=== PATIENT | male | born 1945 | race Caucasian/White ===

== ENCOUNTER 2016-06-18 08:19 | Observation (INO) | payer MEDICARE, OTHER ==
[~2016-06-18] VITALS: Ht 182.9 cm; Wt 95.0 kg
[~2016-06-18 08:19] MED LIST: DIPH25; LORTA5 PO; PRED20 PO; ZYRT10TA12 PO
[2016-06-18] MEDS ORDERED: SODIUM CHLORID 0.9% 500 ML IV PRN (08:45)
[2016-06-18] MEDS ORDERED: INSULIN HUMAN REGULAR 1,000 UNITS/10 ML VIAL SQ PRN (08:45)
[2016-06-18] MEDS ORDERED: POVIDONE IODINE 5% (ANTISEPSIS KIT) 4 APPLICATIONS EACH NARE PRN (08:45)
[2016-06-18] MEDS ORDERED: ceFAZolin 2 GM PREMIX 50 ML IV SCH (08:45)
[2016-06-18] MEDS ORDERED: METOPROLOL TARTRATE 25 MG TAB PO PRN (08:45)
[2016-06-18] MEDS ORDERED: CHLORHEXIDINE GLUCONATE 2 % 1 PACK (2 CLOTHS) TOPICAL PRN (08:45)
[2016-06-18] MEDS ORDERED: ACETAMINOPHEN 1000 MG/100 ML VIAL IV SCH (08:45)
[2016-06-18] MEDS ORDERED: VANCOMYCIN HCL 1000 MG ON-CALL/NS 250 ML IV SCH ×2 (08:45)
[2016-06-18] MEDS ORDERED: LACTATED RINGER'S 1000 ML IV PRN (08:45)
[2016-06-18 08:59] VITALS: BP 120/77; PULSE 53; RESP 16; TEMP 98; O2SAT 96
[2016-06-18] MEDS ORDERED: ceFAZolin 1,000 MG/NS 100 ML IV SCH ×2 (09:00)
[2016-06-18 09:24] LABS: AUTOMATED NEUTROPHIL # 2.5 TH/MM3 (1.8-7.7); BASOPHIL # 0.1 TH/MM3 (0-0.2); BASOPHIL % 1.8 % (0.0-2.0); EOSINOPHIL # 0.2 TH/MM3 (0-0.4); EOSINOPHIL % 3.6 % (0.0-4.0); HEMATOCRIT 44.4 % (39.0-51.0); HEMO FLAGS DIFF FINAL; LYMPH % 24.1 % (9.0-44.0); LYMPHOCYTE # 1.1 TH/MM3 (1.0-4.8); MEAN CELL VOLUME 86.5 FL (80.0-100.0); MEAN CORPUSCULAR HEMOGLOBIN 28.1 PG (27.0-34.0); MEAN CORPUSCULAR HGB CONC 32.4 % (32.0-36.0); MONO % 12.9 % (0.0-8.0); NEUT % 57.6 % (16.0-70.0); PLATELET COUNT 248 TH/MM3 (150-450); RED BLOOD COUNT 5.13 MIL/MM3 (4.50-5.90); RED CELL DISTRIBUTION WIDTH 13.8 % (11.6-17.2); WHITE BLOOD COUNT 4.4 TH/MM3 (4.0-11.0)
[2016-06-18 09:39] LABS: BICARBONATE 24.1 MEQ/L (21.0-32.0)
[2016-06-18] MEDS ORDERED: BUPIVACAINE/EPINEPHRINE 0.25% 50 ML VIAL ONE (11:00)
[2016-06-18] MEDS ORDERED: ONDANSETRON HCL 4 MG/2 ML VIAL IV PUSH ONE (12:00)
[2016-06-18] MEDS ORDERED: PROPOFOL 200 MG/20 ML AMP IV ONE (12:00)
[2016-06-18] MEDS ORDERED: NEOSTIGMINE 3 MG/3 ML SYR IV ONE (12:00)
[2016-06-18] MEDS ORDERED: HYDR-3288 PO (12:46)
--- NOTE | 2016-06-18 12:51 | HHI.PR ---
cc: Umesh Goldman MD Immediate Post Op Note Procedure Date: Jun 18, 2016 Pre Op Diagnosis: Incisional Hernia Post Op Diagnosis: Same Surgeon: Umesh Goldman Venereal Disease Control Head(s): Madhu Chaidez CST Procedure: Incisional hernia repair with 8.[address] mesh Complications: None Specimen(s) removed: None Estimated blood loss: 50 ml Anesthesia: General Drains: None IVF (1000 ml) Patient to: PACU Patient Condition: Good Date/Time of Procedure: SEE SURGICAL CARE RECORD Umesh Goldman MD Jun 18, 2016 12:51
[2016-06-18] MEDS ORDERED: *morphine SULFATE 8 MG/ML PERIprocedure ONLY ONE ×3 (12:56→13:15)
[2016-06-18] MEDS ORDERED: DO NOT ADM ANY ANTICOAGULANT DRUGS PRN (13:30)
[2016-06-18] MEDS ORDERED: MORPHINE SULFATE 4 MG/ML INJ IV PUSH PRN (13:30)
[2016-06-18] MEDS ORDERED: ONDANSETRON HCL 4 MG/2 ML VIAL IV PUSH PRN (13:30)
[2016-06-18] MEDS ORDERED: ACETAMINOPHEN/HYDROcodone 325 MG/5 MG TAB PO PRN ×3 (13:30→17:15)
[2016-06-18] MEDS ORDERED: *HYDROmorphone PF 1 MG VIAL PERIprocedural Use ONLY ONE (13:35)
[2016-06-18] MEDS ORDERED: LABETALOL HCL 100 MG/20 ML VIAL ONE (13:51)
[2016-06-18] MEDS ORDERED: *hydrOXYzine 25 MG VIAL PERIprocedural Use ONLY IM ONE (13:57)
[2016-06-18] MEDS ORDERED: diphenhydrAMINE HCL 25 MG CAP PO PRN (17:15)
[2016-06-18] MEDS ORDERED: KETOROLAC TROMETHAMINE 30 MG/ML (IVP) VIAL IVP PRN (17:15)
[2016-06-18] MEDS ORDERED: Post-op Orders (for Pharmacy) MISC XX ONE (17:15)
[2016-06-18] MEDS ORDERED: HYDROmorphone HCL PF 1 MG/ML VIAL IV PRN (17:15)
[2016-06-18] MEDS ORDERED: SODIUM CHLORIDE 0.9% FLUSH 5 ML FLUSH IVF PRN (17:15)
[2016-06-18] MEDS ORDERED: NALOXONE HCL 0.4 MG/ML AMP IV PRN (17:15)
[2016-06-18] MEDS ORDERED: ONDANSETRON HCL 4 MG/2 ML VIAL IV PRN (17:15)
[2016-06-18 18:20] VITALS: BP 144/80; PULSE 69; RESP 18; TEMP 96.4; O2SAT 91
[2016-06-18 20:00] VITALS: BP 112/70; PULSE 58; RESP 17; TEMP 96.8; O2SAT 93
[2016-06-18] MEDS: D5-NS + KCL 20 MEQ INJ 1,000 ML IV SCH (20:04)
[2016-06-18] MEDS ORDERED: SODIUM CHLORIDE 0.9% FLUSH 5 ML FLUSH IVF SCH (21:00)
[2016-06-19 00:02] VITALS: BP 111/60; PULSE 54; RESP 17; TEMP 97.6; O2SAT 94
[2016-06-19] MEDS: D5-NS + KCL 20 MEQ INJ 1,000 ML IV SCH ×2 (01:15→09:58)
[2016-06-19] MEDS: ACETAMINOPHEN/HYDROcodone 325 MG/5 MG TAB PO PRN ×3 (03:17→15:36)
[2016-06-19 04:18] VITALS: BP 135/74; PULSE 60; RESP 17; TEMP 98.8; O2SAT 95
[2016-06-19 08:00] VITALS: BP 120/74; PULSE 58; RESP 17; TEMP 96.9; O2SAT 94
[2016-06-19 10:53] VITALS: O2SAT 95
[2016-06-19 12:00] VITALS: BP 123/75; PULSE 62; RESP 18; TEMP 97.6; O2SAT 95
[2016-06-19 16:00] VITALS: BP 134/87; PULSE 112; RESP 18; TEMP 97.7; O2SAT 95
--- NOTE | 2016-06-20 16:09 | MP ---
cc: ENID GOLDMAN M.D. DATE OF SURGERY: 06/18/2016. PREOPERATIVE DIAGNOSIS: Incisional hernia, reducible. POSTOPERATIVE DIAGNOSIS: Incisional hernia, reducible. OPERATIVE PROCEDURE PERFORMED: Incisional hernia repair with mesh. SURGEON: Enid Goldman MD. PRODUCTION OR PLANT ENGINEER: Kartik Chaidez CST. ANESTHESIA: General endotracheal. ESTIMATED BLOOD LOSS: 50 mL. FLUIDS: 1000 mL crystalloid. COMPLICATIONS: None. DRAINS: None. SPECIMEN: None. FINDINGS: Two hernias with a second hernia inferior to the easily apparent first hernia. DESCRIPTION OF THE PROCEDURE IN DETAIL: The patient was taken to the operating room and placed on the operating table in the supine position. After an adequate level of general endotracheal anesthesia was achieved, the abdomen was shaved, prepped and draped. Time-out was taken confirming the correct patient, site and procedure to be performed. Incision was made in the previous incision and extended slightly. Dissection was carried down to the hernia sac which was circumferentially dissected down to the fascia. The hernia sac was opened and was seen to be completely comprised of preperitoneal fatty tissue with no intra-abdominal contents within the hernia itself. The hernia sac was trimmed off and the defect was actually seen to be two defects with a second one located inferior and to the left of the midline. This was opened so that it became one defect and at this point an 8-cm Ventralex ST mesh was brought up and placed under the defect. The mesh was fixed at multiple points with #0 Prolene suture. This completely overlapped the defect by at least 3-[address] around. The fascia was then re-closed with #1 Prolene in an interrupted fashion closing the defect longitudinally. 50 mL of 0.25% with epinephrine was injected into the fascia and subcutaneous tissue. The wound was then closed with interrupted 3-0 Vicryl suture and the skin closed with 5-0 PDS in a running subcuticular fashion. The wound was dressed with Steri-Strips and the patient had an abdominal binder applied. The patient was extubated and taken back to the recovery room in stable condition. Sponge, needle and instrument counts were reported to be correct. Enid Goldman MD [facility] /3:59 PM /4:03 PM
== END 2016-06-19 18:17 | disposition home or self-care (01) ==
LOC: HSDC 08:19 → N07B 12:30
PROVIDERS: ADMIT Surgery Trauma Surgery; ATTEND Surgery Trauma Surgery
DX: K43.2 Incisional hernia without obstruction or gangrene (principal)
CPT/HCPCS: 00832; 49560; 49568; 80048; 82565; 85025; 94150; 94620; C1781; G0378; J0131; J0690; J1170; J1885; J2270; J2405; J2710; J3010; J3370; J3410; J3480; J7050; J7120

== ENCOUNTER 2016-06-26 06:33 | Inpatient (IN) | payer MEDICARE, OTHER ==
[~2016-06-26] VITALS: Ht 182.9 cm; Wt 87.6 kg
[~2016-06-26 06:33] MED LIST changes: -DIPH25; +HYDR-3288 PO; -LORTA5 PO; -PRED20 PO; -ZYRT10TA12 PO
[2016-06-26 06:35] VITALS: O2SAT 96; O2SAT 98
[2016-06-26] MEDS ORDERED: SODIUM CHLOR 0.9% 1000 ML INJ 1,000 ML IV ONE (06:39)
[2016-06-26] MEDS ORDERED: NITROGLYCERIN 0.4 MG SL 25 TABS/BTL SL STA (06:39)
[2016-06-26] MEDS ORDERED: ASPIRIN 81 MG CHEW TAB PO STA ×2 (06:39)
[2016-06-26] MEDS ORDERED: HEPARIN-NS/PF INJ 500 ML ONE (06:42)
[2016-06-26] MEDS ORDERED: MIDAZOLAM HCL 2 MG/2 ML VIAL ONE (06:43)
[2016-06-26] MEDS ORDERED: NITROGLYCERIN 0.4 MG SL 25 TABS/BTL SL ONE ×2 (06:43→10:26)
[2016-06-26] MEDS ORDERED: SODIUM CHLORIDE 0.9% FLUSH 10 ML FLUSH IVF PRN (06:45)
[2016-06-26] MEDS ORDERED: ASPIRIN 81 MG CHEW TAB ONE (06:45)
[2016-06-26] MEDS ORDERED: HEPARIN SODIUM - IV 10,000 UNITS/10 ML VIAL ONE ×2 (06:45→07:23)
[2016-06-26] MEDS ORDERED: HEPARIN-D5W INJ 250 ML IV SCH (06:45)
[2016-06-26 06:50] VITALS: BP 174/67; PULSE 124; RESP 16; TEMP 98.3; O2SAT 98
--- NOTE | 2016-06-26 06:53 | RADRPT ---
EXAM DATE/TIME: 06/26/2016 06:32 [place] COMPARISON: No previous studies available for comparison. INDICATIONS : Stemi alert MEDICAL HISTORY : None. SURGICAL HISTORY : None. ENCOUNTER: Initial ACUITY: 1 day PAIN SCORE: 10/10 LOCATION: Bilateral chest FINDINGS: A single view of the chest demonstrates bibasilar atelectasis. Cardiomegaly. The cardiomediastinal co ntours are unremarkable. Osseous structures are intact. CONCLUSION: Cardiomegaly with bibasilar atelectasis. Osbaldo Henry MD on June 26, 2016 at 6:51 Board Certified Radiologist. This report was verified electronically.
[2016-06-26 06:55] VITALS: BP 127/78; PULSE 80; RESP 18; O2SAT 99
[2016-06-26 07:01] LABS: I-STAT POTASSIUM 3.3 MMOL/L (3.5-4.9)
[2016-06-26 07:03] LABS: AUTOMATED NEUTROPHIL # 4.3 TH/MM3 (1.8-7.7); BASOPHIL # 0.1 TH/MM3 (0-0.2); BASOPHIL % 1.4 % (0.0-2.0); EOSINOPHIL # 0.4 TH/MM3 (0-0.4); HEMATOCRIT 46.3 % (39.0-51.0); HEMO FLAGS DIFF FINAL; LYMPHOCYTE # 2.3 TH/MM3 (1.0-4.8); MEAN CELL VOLUME 85.3 FL (80.0-100.0); MEAN CORPUSCULAR HEMOGLOBIN 29.1 PG (27.0-34.0); MEAN CORPUSCULAR HGB CONC 34.1 % (32.0-36.0); MONO % 13.5 % (0.0-8.0); NEUT % 52.1 % (16.0-70.0); PLATELET COUNT 362 TH/MM3 (150-450); RED BLOOD COUNT 5.42 MIL/MM3 (4.50-5.90); RED CELL DISTRIBUTION WIDTH 13.9 % (11.6-17.2); WHITE BLOOD COUNT 8.3 TH/MM3 (4.0-11.0)
[2016-06-26 07:13] LABS: APTT (PATIENT) 27.3 SEC (24.3-30.1); PROTHROMBIN TIME - PATIENT 11.3 SEC (9.8-11.6)
--- NOTE | 2016-06-26 07:16 | PD ---
HPI Chief Complaint: STEMI Alert Time Seen by Provider: 06:39 Travel History International Travel<30 days: No Contact w/Intl Traveler<30days: No Traveled to known affect area: No History of Present Illness HPI 71-year-old male brought in by EMS as a STEMI alert. The patient had been experiencing substernal chest pain for about an hour prior to calling 911. When EMS arrived they noticed that the patient was diaphoretic, complaining of substernal chest discomfort. EKG was performed and shows ST elevations in inferior leads as well as V4 through V6. Patient reports taking 2 baby aspirin after dispensing chest pain this morning. During EMS transport to the hospital the patient went into V. fib arrest. CPR was initiated and the patient was defibrillated 2 with ROSC. Upon arrival to the emergency department the patient is awake and alert. He is complaining of 7 out of 10 substernal chest pain which she describes as dull/ache. He denies history of cardiac disease. No family history of cardiac disease. He is a nonsmoker. He denies history of hypertension, hyperlipidemia, diabetes, or any other risk factors. He is having some dyspnea. No paresthesias or motor deficits. He underwent abdominal wall hernia repair about a week ago in this facility. [facility], [facility] Past Medical History Diminished Hearing: No Genitourinary: Yes (hernia repair) Reproductive: Yes (prostate sx.) Past Surgical History Joint Replacement: No Pacemaker: No Social History Alcohol Use: Yes (1-2 scotch drinks, daily, last 09/26/14) Tobacco Use: No Substance Use: No Allergies-Medications (Allergen,Severity, Reaction): Coded Allergies: No Known Allergies (Unverified , 06/26/16) Reported Meds & Prescriptions Reported Meds & Active Scripts Active No Active Prescriptions or Reported Medications Review of Systems Except as stated in HPI: all other systems reviewed are Neg Physical Exam Narrative GENERAL: Well-developed, well-nourished, awake, alert, no acute distress. SKIN: Focused skin assessment warm/slightly diaphoretic. No pallor. HEAD: Atraumatic. Normocephalic. EYES: Pupils equal and round. No scleral icterus. No injection or drainage. ENT: Mucous membranes pink and moist. NECK: Trachea midline. No JVD. CARDIOVASCULAR: Regular rate and rhythm. Distal pulses brisk and equal bilaterally. RESPIRATORY: No accessory muscle use. Clear to auscultation. Breath sounds equal bilaterally. GASTROINTESTINAL: Abdomen soft, non-tender, nondistended. MUSCULOSKELETAL: No obvious deformities. No clubbing. No cyanosis. No edema. NEUROLOGICAL: Awake and alert. No obvious cranial nerve deficits. Motor grossly within normal limits. Normal speech. PSYCHIATRIC: Appropriate mood and affect; insight and judgment normal. Data Data Last Documented VS Vital Signs Date Time Temp Pulse Resp B/P Pulse Ox O2 Delivery O2 Flow Rate FiO2 06/26/16 06:35 98 06/26/16 06:35 4.00 06/26/16 06:35 Nasal Cannula Orders Heparin-Ns/Pf Inj (Heparin-Ns/Pf Inj) (06/26/16 06:42) Troponin I (06/26/16 06:39) Ckmb (Isoenzyme) Profile (06/26/16 06:39) Complete Blood Count With Diff (06/26/16 06:39) I-Stat Profile (06/26/16 06:39) I-Stat Creatinine (06/26/16 06:39) Calcium (06/26/16 06:39) Magnesium (Mg) (06/26/16 06:39) Prothrombin Time / Inr (Pt) (06/26/16 06:39) Act Partial Throm Time (Ptt) (06/26/16 06:39) B-Type Natriuretic Peptide (06/26/16 06:39) Chest, Single Ap (06/26/16 06:39) Electrocardiogram (06/26/16 06:39) Oxygen Administration (06/26/16 06:39) Iv Access Insert/Monitor (06/26/16 06:39) Oximetry (06/26/16 06:39) Sodium Chlor 0.9% 1000 Ml Inj (Ns 1000 M (06/26/16 06:39) Sodium Chloride 0.9% Flush (Ns Flush) (06/26/16 06:45) Aspirin Chew (Aspirin Chew) (06/26/16 06:39) Nitroglycerin Sl (Nitrostat Sl) (06/26/16 06:39) Aspirin Chew (Aspirin Chew) (06/26/16 06:39) Midazolam Inj (Versed Inj) (06/26/16 06:43) Fentanyl Inj (Fentanyl Inj) (06/26/16 06:43) Heparin Infusion OLIVIER.Q1H (06/26/16 06:43) Heparin-D5w Inj (Heparin-D5w Inj) (06/26/16 06:45) Act Partial Throm Time (Ptt) (06/26/16 06:43) Prothrombin Time / Inr (Pt) (06/26/16 06:43) Cbc No Diff, Includes Plts (06/29/16 06:00) Act Partial Throm Time (Ptt) (06/26/16 13:43) Occult Blood (Hemoccult) Stool (06/26/16 06:43) Admit Order (Ed Use Only) (06/26/16 06:43) Nitroglycerin Sl (Nitrostat Sl) (06/26/16 06:43) Heparin Inj (Heparin Inj) (06/26/16 06:45) Aspirin Chew (Aspirin Chew) (06/26/16 06:45) MDM Medical Decision Making Medical Screen Exam Complete: Yes Emergency Medical Condition: Yes Interpretation(s) EKG: Sinus, rate 93, left axis deviation, ST elevations in inferior leads as well as V4 through V6 with reciprocal ST depressions in V1 through V3, I and aVL. Differential Diagnosis STEMI, cardiac arrest, V. fib arrest, metabolic abnormality Narrative Course STEMI alert called shortly after the patient arrived to the emergency department , and shortly after this I spoke with on-call computer numerical control grinder Dr. Swift. The patient will be given heparin, subungual nitroglycerin, and I will escort the patient to the [facility] until Dr. Swift arrives in the hospital. The patient will be admitted to his service to the [facility]. 7:10 AM: After I returned to the emergency department from the [facility], the patient's was in the emergency department. I informed her of the patient' s condition and of the diagnosis of OH. She will be escorted to the [facility] waiting area. Diagnosis Primary Impression: STEMI (ST elevation myocardial infarction) Qualified Code: I21.3 - ST elevation myocardial infarction (STEMI), unspecified artery Admitting Information Admitting Physician Requests: Admit Scripts No Active Prescriptions or Reported Meds Derek Galeana MD Jun 26, 2016 07:16
[2016-06-26 07:21] LABS: MAGNESIUM 2.5 MG/DL (1.5-2.5)
[2016-06-26] MEDS ORDERED: SODIUM NITROPRUSSIDE 50 MG/2 ML VIAL ONE (08:15)
[2016-06-26] MEDS ORDERED: TICAGRELOR 90 MG TAB PO ONE (08:31)
[2016-06-26] MEDS ORDERED: ONDANSETRON HCL 4 MG/2 ML VIAL IV PRN (09:30)
[2016-06-26] MEDS ORDERED: SODIUM CHLOR 0.9% 250 ML INJ 250 ML IV PRN (09:30)
[2016-06-26] MEDS ORDERED: MISC INFORMATION XX ONE (09:30)
[2016-06-26] MEDS ORDERED: SODIUM CHLORIDE 0.9% FLUSH 10 ML FLUSH PRN (09:30)
[2016-06-26] MEDS ORDERED: ACETAMINOPHEN 325 MG TAB PO PRN (09:30)
[2016-06-26] MEDS ORDERED: oxyCODONE/ACETAMINOPHEN 5 MG/325 MG TAB PO PRN (09:30)
[2016-06-26] MEDS ORDERED: ATROPINE SULFATE 1 MG/ML VIAL IV PRN (09:30)
--- NOTE | 2016-06-26 10:36 | MB ---
cc: KELVIN ROLDAN DO DATE OF CONSULTATION 06/26/2016 REASON FOR CONSULTATION STEMI HISTORY OF PRESENT ILLNESS Alfred Anderson is a pleasant 71-year-old brought in by EMS to [facility] for a STEMI alert. He started noticing substernal chest pain about an hour before and called 9-1-1. On arrival, the patient was diaphoretic complaining of substernal chest discomfort. EKG was done showing posterolateral changes concerning for a STEMI. During the transfer to the hospital, the patient went into ventricular fibrillation arrest. CPR was initiated and the patient was defibrillated twice with return of spontaneous circulation. On arrival to the emergency room, the patient was awake, alert and still having chest pain. PAST MEDICAL HISTORY 1. Prostate cancer 2. GERD PAST SURGICAL HISTORY 1. Recent hernia repair (June 18, 2016) 2. Radical prostatectomy for prostate cancer. ALLERGIES NO KNOWN DRUG ALLERGIES. MEDICATIONS 1. Prilosec as needed 2. Viagra her as needed. SOCIAL HISTORY The patient denies tobacco or drug abuse. He does drink one to two scotch drinks on most nights. REVIEW OF SYSTEMS 14-systems were reviewed including osteopathic pertinent positives and negatives as above, otherwise negative. PHYSICAL EXAMINATION VITAL SIGNS: Temperature 98.3, heart rate 80, blood pressure 127/78, respirations 18, pulse ox 99% on two liters. GENERAL: The patient appears in acute distress, but is alert awake and oriented, mildly diaphoretic and anxious. Extraocular muscles intact. Mucous membranes moist. NECK: Supple. No JVD at 45 degrees. No carotid bruits heard bilaterally. Bilateral carotid upstroke is brisk in nature. HEART: Regular rhythm, mildly tachy. No murmurs noted. LUNGS: Clear to auscultation bilaterally. ABDOMEN: Soft, nontender and nondistended. No organomegaly noted. EXTREMITIES: Show no clubbing, cyanosis or edema. Femoral and distal pulses intact bilaterally. NEUROLOGIC: No focal deficits. SKIN: Warm, mildly diaphoretic, but intact. OSTEOPATHIC: No kyphoscoliosis, lordosis or paraspinal tender points. LABORATORY FINDINGS Hemoglobin 15.8, hematocrit 46.3, platelets 362. Potassium 3.3, BUN 29, creatinine 1.5, troponin 0.02. BNP 157. Electrocardiogram (June 26, 2016 at 0638) probable sinus tachycardia, left axis deviation, ST elevations laterally with ST depressions anteriorly consistent with an acute lateral posterior IL. There are some ST elevations possibly in the inferior leads which would I also include an inferior IL. IMPRESSION 1. Acute posterolateral STEMI. 2. Chest pain concerning for coronary insufficiency. 3. Chronic kidney disease 4. Gastroesophageal reflux disease 5. History of prostate cancer status post radical prostatectomy. 6. Ventricular fibrillation requiring two defibrillator shocks for return of spontaneous circulation most likely due to acute ischemia. RECOMMENDATIONS 1. As Mr. 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 The risks, benefits and alternatives were explained to him and he consents as such. 2. We will check a 2-D echo to look at his overall left ventricular function, cardiac structure and possible valvulopathies. 3. Further recommendations will be made based after coronary visualization. Thank you for allowing me to see Alfred Anderson. If there are any questions, please do not hesitate to call. Kelvin Roldan DO [facility] /9:34 AM /10:25 AM
[2016-06-26] MEDS ORDERED: SODIUM CHLOR 0.9% 1000 ML INJ 1,000 ML IV SCH (11:00)
[2016-06-26] MEDS ORDERED: NITROGLYCERIN-DEXTROSE INJ 250 ML ONE (11:22)
[2016-06-26] MEDS ORDERED: IOHEXOL 350 MG/ML 100 ML BTL (for Cath Lab) OTHER ONE (12:00)
[2016-06-26] MEDS: MORPHINE SULFATE 4 MG/ML INJ IV PUSH PRN ×2 (12:22→12:46)
[2016-06-26] MEDS: oxyCODONE/ACETAMINOPHEN 10 MG/325 MG TAB PO PRN (13:33)
--- NOTE | 2016-06-26 13:36 | MB ---
cc: SHANNON GOTTI M.D., VINCENT G. DO DATE OF CONSULTATION 06/26/2016 REASON FOR MEDICAL CONSULTATION Assistance with medical management following myocardial infarction HISTORY OF PRESENT ILLNESS This 71-year-old white male well-known to undersigned physician awoke earlier this morning feeling fine. He then had the onset of substernal chest pain which he described as a tightness. It radiated up to his neck, that did not radiate to the left arm. He was short of breath and felt flushed. The patient became concerned and had his call EMS. The patient was transported to this facility via EMS. En route, he had ventricular fibrillation and required defibrillation x2 with successful recovery of sinus rhythm. The patient has no previous history of any coronary disease. In the emergency department, the patient was initiated on a nitroglycerin drip, heparin and was given aspirin. Cardiology was consulted and Dr. Swift took the patient to the catheterization lab and performed emergent stenting of the posterolateral branch of the right coronary artery which was 100% occluded. The patient is now status post cardiac catheterization with stent placement. He is complaining of anterior chest wall pain which is worsened by palpation. He has no nausea, no diaphoresis. He denies any headache, any visual changes, any lateralizing deficits. He has had no cough. He was having difficulty taking a deep breath due to the pain, but after receiving some morphine sulfate, he is breathing better. His oxygen saturations have all been within normal range. PAST MEDICAL HISTORY The patient's past medical history is significant for a history of: 1. Prostate cancer. He is status post robotic-assisted prostatectomy in 2016. 2. He had a left inguinal hernia which was also repaired in 2016. He just recently had the repair of an incisional hernia at the midline of the abdomen done within the last six weeks [address]. Goldman. 3. The patient has history of gastroesophageal reflux disease. 4. He had arthroscopic knee arthroscopic surgery in the right Knee. 5. He also had a right inguinal hernia repair in 2005. CURRENT MEDICATIONS None ALLERGIES He has no known drug allergies. FAMILY HISTORY His father age 96 of natural causes. Mother of breast cancer. He has two sisters with a history of breast cancer. IMMUNIZATION HISTORY He had a pneumococcal vaccination on October 06, 2012 and he had his influenza vaccination on December 18, 2015. SOCIAL HISTORY He is . 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 He does not smoke, but he did smoke in the remote past. He consumes alcohol on a social basis. He is and lives with his spouse. REVIEW OF SYSTEMS Negative except as outlined above. PHYSICAL EXAMINATION VITAL SIGNS: At the current time, the patient's blood pressure is 127/78 with a heart rate of 104, respirations were 20. GENERAL: In general, this is a well-nourished, well-developed elderly white male in moderate distress due to the anterior chest wall pain. HEENT: Pupils equal, round, and reactive to light. Extraocular movements are intact. Sclerae anicteric. Nares patent without discharge. Mouth and throat reveal moist mucous membranes. No erythema or exudates. NECK: Supple without lymphadenopathy, JVD, bruits or thyromegaly. CARDIOVASCULAR: Examination revealed a regular rate and rhythm with tachycardia. No murmurs, rubs or gallops. LUNGS: Clear to auscultation. The anterior chest wall is exquisitely tender to palpation along the lower mid sternum. There are no palpable bony deformities. ABDOMEN: The abdomen is soft, nontender, nondistended with bowel sounds present. No masses palpable. No hepatosplenomegaly. AND RECTAL: Deferred. EXTREMITIES: Lower extremities: Reveal 2+ pulses. No edema. No calf tenderness. No Homans' sign. SKIN: Warm and dry. No significant rashes or lesions. LABORATORY DATA The patient's initial white blood cell count was 8.3, hemoglobin 15.8, hematocrit 46.3, platelet count 362,000. His electrolytes revealed a potassium of 3.3 which was low. BUN and creatinine were 29 and 1.5. The INR was 1.0, APTT 27.3. His EKG revealed tachycardia with a rate of 132 beats per minute. There are ST elevations in II, III, aVF as well as V5 and V6 and reciprocal T-wave depressions in V1-V3. IMPRESSION AND PLAN 1. This 71-year white male presented with an acute Inferolateral myocardial infarction. He underwent emergent cardiac catheterization with percutaneous intervention. He has a stent placed in the RCA posterolateral branch. He currently is stable. His anterior chest pain is not likely to be due to ischemia, but due to the defibrillation. He Will receive morphine sulfate as needed. Currently, he is receiving aspirin, subcutaneous heparin Brilinta, Atorvastatin. I will defer any further treatment for the cardiac condition to cardiology. The patient will remain in ICU and with close monitoring of his hemodynamic status. 2. History gastroesophageal reflux disease. The patient is currently asymptomatic. We will follow. 3. Status post recent herniorrhaphy. His anterior midline incision just above the umbilicus is intact and healing well. No evidence of any damage due to recent movement. We will follow. Thank you for this consultation. I will follow the patient with used. MD MIKE Acevedo/LENNY /12:48 PM /1:12 PM
[2016-06-26 14:04] LABS: APTT (PATIENT) 34.6 SEC (24.3-30.1)
--- NOTE | 2016-06-26 17:39 | EC ---
Study Study Date:06/26/2016 STUDY CONCLUSIONS SUMMARY - Left ventricle: The cavity size was normal. Wall thickness was normal. Systolic function was at the lower limits of normal. The estimated ejection fraction was in the range of 50% to 55%. Mild hypokinesis of the mid-distal inferior myocardium. - Mitral valve: Mild regurgitation. - Tricuspid valve: Mild regurgitation. - Pulmonary arteries: PA peak pressure: 39mm Hg (S). If LV function is below 40, please consider prescribing an ACEI or ARB or document rationale for non-use. PROCEDURE DATA STUDY STATUS: Elective. Procedure: Transthoracic echocardiography. Image quality was good. Scanning was performed from the parasternal, apical, and subcostal acoustic windows. Study completion: The patient tolerated the procedure well. Transthoracic echocardiography. M-mode, complete 2D, complete spectral Doppler, and color Doppler. Patient status: Inpatient. CARDIAC ANATOMY LEFT VENTRICLE: The cavity size was normal. Wall thickness was normal. Systolic function was at the lower limits of normal. The estimated ejection fraction was in the range of 50% to 55%. Regional wall motion abnormalities: Mild hypokinesis of the mid-distal inferior myocardium. AORTIC VALVE: Trileaflet; normal thickness leaflets. Doppler: Transvalvular velocity was within the normal range. There was no stenosis. No regurgitation. AORTA: Aortic root: The aortic root was normal in size. MITRAL VALVE: Structurally normal valve. Doppler: Transvalvular velocity was within the normal range. There was no evidence for stenosis. Mild regurgitation. LEFT ATRIUM: The atrium was normal in size. RIGHT VENTRICLE: The cavity size was normal. Wall thickness was normal. PULMONIC VALVE: Doppler: Transvalvular velocity was within the normal range. There was no evidence for stenosis. No regurgitation. TRICUSPID VALVE: Structurally normal valve. Doppler: Transvalvular velocity was within the normal range. Mild regurgitation. PULMONARY ARTERY: The main pulmonary artery was normal-sized. Systolic pressure was within the normal range. RIGHT ATRIUM: The atrium was normal in size. PERICARDIUM: There was no pericardial effusion. SYSTEMIC VEINS: Inferior vena cava: The vessel was normal in size. BASIC MEASUREMENTS ADULT NORMAL Left ventricle LV internal dimension, ED, chordal level, 51.9 mm 43-52 PLAX LV internal dimension, ES, chordal level, *44 mm 23-38 PLAX Fractional shortening, chordal level, PLAX *15 % >29 LV posterior wall thickness, ED 9.87 mm IVS/LVPW ratio, ED *1.3 <1.3 Volume, ED, MOD, 1-plane 149 ml Ventricular septum Septal thickness, ED 12.8 mm Aortic valve Leaflet separation 23 mm 15-26 Right ventricle RV internal dimension, ED, PLAX 26.6 mm 19-38 BASIC MEASUREMENTS ADULT NORMAL Aortic valve Leaflet separation 23 mm 15-26 Aorta Root diameter, ED 36 mm 20-37 Left atrium Anterior-posterior dimension, ES 36 mm 19-40 LA/aortic root ratio 1 DOPPLER MEASUREMENTS ADULT NORMAL Main pulmonary artery Pressure, S *39 mm Hg =30 Mitral valve Peak E-wave velocity 44.9 cm/s Peak A-wave velocity 54.8 cm/s Peak E/A ratio 0.8 Tricuspid valve Regurgitant peak velocity 228 cm/s Peak RV-RA gradient, S 21 mm Hg Maximal regurgitant velocity 228 cm/s Systemic veins Estimated CVP 10 mm Hg Right ventricle RV pressure, S *39 mm Hg <30 LEGEND: Mean values are shown as u=mean value. Asterisk (*) piña values outside specified normal range. Prepared and signed by Igor Hoover [id number]
[2016-06-26 20:00] VITALS: BP 121/71; PULSE 69; RESP 20; TEMP 98.2; O2SAT 95
[2016-06-26 20:43] VITALS: O2SAT 93
[2016-06-26] MEDS ORDERED: TICAGRELOR 90 MG TAB PO SCH (21:00)
[2016-06-26 22:00] VITALS: PULSE 63
[2016-06-26] MEDS: ATORVASTATIN 80 MG TAB PO SCH (22:42)
[2016-06-26] MEDS: SODIUM CHLORIDE 0.9% FLUSH 10 ML FLUSH SCH (22:43)
[2016-06-27] VITALS (16 sets, daily range): BP systolic 128–146; BP diastolic 79–106; PULSE 59–137; RESP 17–22; TEMP 97.9–98.2; O2SAT 95–100
[2016-06-27] MEDS: oxyCODONE/ACETAMINOPHEN 10 MG/325 MG TAB PO PRN ×2 (00:31→09:37)
[2016-06-27] MEDS: MORPHINE SULFATE 4 MG/ML INJ IV PUSH PRN (02:54)
[2016-06-27] MEDS: HEPARIN SODIUM - SQ 10,000 UNITS/ML VIAL SQ SCH ×2 (05:59→16:17)
[2016-06-27 06:21] LABS: BASOPHIL % 0.5 % (0.0-2.0); EOSINOPHIL # 0.1 TH/MM3 (0-0.4); EOSINOPHIL % 1.2 % (0.0-4.0); HEMATOCRIT 39.2 % (39.0-51.0); HEMO FLAGS DIFF FINAL; LYMPH % 9.4 % (9.0-44.0); LYMPHOCYTE # 0.8 TH/MM3 (1.0-4.8); MEAN CELL VOLUME 85.8 FL (80.0-100.0); MEAN CORPUSCULAR HEMOGLOBIN 28.1 PG (27.0-34.0); MEAN CORPUSCULAR HGB CONC 32.7 % (32.0-36.0); MONO % 9.9 % (0.0-8.0); PLATELET COUNT 275 TH/MM3 (150-450); RED BLOOD COUNT 4.57 MIL/MM3 (4.50-5.90); RED CELL DISTRIBUTION WIDTH 13.8 % (11.6-17.2); WHITE BLOOD COUNT 8.9 TH/MM3 (4.0-11.0)
[2016-06-27 06:57] LABS: ANION GAP 9 MEQ/L (5-15); BICARBONATE 21.9 MEQ/L (21.0-32.0); BLOOD UREA NITROGEN 17 MG/DL (7-18); CHLORIDE 108 MEQ/L (98-107); GLOMERULAR FILTRATION RATE 77 ML/MIN (>89); HDL CHOLESTEROL 35.4 MG/DL (40.0-60.0); LDL CHOLESTEROL 70 MG/DL (0-99); SODIUM (NA) 139 MEQ/L (136-145)
--- NOTE | 2016-06-27 06:58 | MA ---
cc: KELVIN ROLDAN DO DATE OF PROCEDURE June 26, 2016 PROCEDURE Left heart catheterization, coronary angiogram, balloon angioplasty and aspiration of distal posterior lateral branch, placement of a bare metal stent (2 x 12) to the distal posterior lateral branch, sedation 45 minutes, extremely complex case. PREPROCEDURE DIAGNOSIS Acute posterior lateral ST elevation myocardial infarction. POSTPROCEDURE DIAGNOSIS Acute posterior lateral ST elevation myocardial infarction, occluded distal posterior lateral branch status post balloon angioplasty, aspiration thrombectomy, and placement of a bare metal stent (2 x 12). MEDICATIONS 1. Fentanyl 50 mcg. 2. Heparin 4000 units (received 10,000 units in the emergency room). 3. Brilinta 180 mg. CONTRAST USED 200 cc. FLUOROSCOPY 29.5 minutes. SEDATION: Moderate sedation given for 45 minutes ESTIMATED BLOOD LOSS 10 cc. PROCEDURAL SUMMARY Alfred Anderson is a pleasant 71-year-old male who presented to [facility] in acute distress due to chest pain. He was found to have an acute posterior lateral ST elevation myocardial infarction and he was brought to the roofing laborer emergently. The risks, benefits and alternatives were explained to him and he consented as such. The right femoral artery was accessed using a micropuncture and placement of a 6-Maltese sheath. Selective angiography of the right femoral artery shows access in the midportion of the common femoral artery. The iliac artery above this is somewhat tortuous but no significant disease throughout the system. A JR-4 was advanced to the ascending aorta and this was used for selective angiography of the right coronary system. JR-4 was then exchanged for a JL-4 which was used for selective angiography of the left coronary system. Please see notes below for interventional procedure. After the interventional procedure, a pigtail was placed into the left ventricle to measure left ventricular end-diastolic pressure. This was then removed over a J-wire. The sheath was sutured into place with a plan to remove once ACTs were at an appropriate level. As the patient was leaving the roofing laborer, he did have some chest pain. Repeat EKG showed resolution of his previous ST elevations. He was given nitro sublingual x 1 which relieved his chest pain. He left the roofing laborer cardiovascularly stable. FINDINGS LEFT MAIN: A normal-appearing vessel with adequate reflux and a 10-20% lesion at the ostium. It trifurcates into an LAD, ramus and left circumflex. LAD: A normal-appearing vessel with mild tortuosity in the distal portion but no significant disease noted. RAMUS: A normal-appearing vessel. It does not appear to have significant disease throughout. LEFT CIRCUMFLEX: A nondominant vessel that does give off a high obtuse marginal essentially at the takeoff of the ramus. It does not appear to have any significant disease throughout the left circumflex or obtuse marginal. RIGHT CORONARY ARTERY: A large dominant vessel with no significant disease throughout the proximal to distal portion. He gives off a PDA which does not have any significant disease. The second posterior lateral branch appears to be a 100% occluded acutely. Left ventricular end-diastolic pressure 18. INTERVENTION The distal posterior lateral branch appears to be 100% occluded acutely. JR-4 guide was used initially to engage the right coronary artery. The BMW wire was advanced to the distal portion of the posterior lateral branch but due to the distal size was very difficult to advance to a point where intervention could be obtained on the acute thrombus. A Compliant balloon (2 x 12) was then advanced and inflated over the area of acute occlusion. It appears that there is a significant amount of thrombus throughout this distal portion. ACT was measured at that time at 268, so additional heparin was given. I attempted to take an Beaver catheter to this distal portion but due to the distal length that this needed to reach, this started to back out our guide. He Beaver catheter was removed without use at that time. A GuideLiner was then placed part way down the right coronary artery. A Compliant balloon (2 x 12) was then used to dotter the distal vessel as it was felt that it was extremely small. This was then removed and replaced with a Compliant balloon (1.5 x 20) which was used for balloon angioplasty of the distal vessel and then used to dotter farther distally. During this part, the catheter and GuideLiner had backed out and position was lost. It was felt that we needed better guide support so JR-4 was then exchanged for an AL-1 guide. A new BMW wire was then advanced into the distal posterior lateral branch. An Beaver catheter was then advanced to the proximal portion and aspirated to the distal portion. A Compliant balloon (1.5 x 20) was then used for angioplasty of the distal vessel which then allowed flow into the distal posterior lateral branch. Because the vessel is significantly small throughout its course, it was felt that a 2-mm stent was the largest size that could be placed. A Multi-Link Mini Vision bare metal stent (2 x 12) was placed in the proximal portion of the posterior lateral branch. This was inflated to nominal pressure. After placement there was concern for slow flow within the distal vessel, most likely due to the amount of thrombus which was pushed distally. 50 mcg of Nipride was then injected intracoronary. A Non-Compliant balloon (2 x 6) was then inflated across that the stent for apposition. An extremely small vessel off the midportion of the posterior lateral branch was noted to be occluded by thrombus. On pullback of the wire I attempted to wire this but was unable to. At this time the BMW wire was pulled back and selective angiography shows a well opposed stent with no perforations or dissection. The AL-1 catheter was then was then removed over a J-wire. IMPRESSIONS 1. Acute posterior lateral ST elevation myocardial infarction. 2. Occluded distal posterior lateral branch status post balloon angioplasty, aspiration thrombectomy, and placement of a Multi-Link Mini Vision bare metal stent (2 x 12). 3. Door to balloon time missed secondary to complexity of the lesion in such a distal position with extensive thrombus. RECOMMENDATIONS 1. Mr. Anderson presented with an acute posterior lateral ST elevation myocardial infarction and because of this should stay in the hospital for 48-72 hours. 2. He will be placed on aspirin, Brilinta and statin therapy. Brilinta was given as a loading dose postprocedure. Beta blockers will be held due to his bradycardia at this time. This can be reconsidered throughout his hospital stay. CHER inhibitor will be held due to his acute kidney injury versus chronic kidney disease. This can be reassessed throughout the hospitalization. 3. He will be placed in the ICU overnight. 4. A 2-D echo will be obtained to look at his overall left ventricular function, cardiac structure and overall valvopathies. 5. He will be placed on a low level nitrogen drip as this did relieve his chest pain. This can be weaned off as possible. Thank you for allowing me to see Alfred Anderson. If there area any questions, please do not hesitate to call. Kelvin Roldan DO VGP/SSB /8:12 PM /6:26 AM
[2016-06-27] MEDS: TICAGRELOR 90 MG TAB PO SCH ×2 (07:52→20:02)
[2016-06-27] MEDS: ASPIRIN 81 MG CHEW TAB PO SCH (07:52)
[2016-06-27] MEDS: SODIUM CHLORIDE 0.9% FLUSH 10 ML FLUSH SCH ×2 (07:54→20:02)
--- NOTE | 2016-06-27 08:17 | EKG ---
Date Performed: 06/26/2016 Time Performed: 06:38:57 PTAGE: 71 years EKG: ACUTE MO ATRIAL FIBRILLATION WITH RAPID VENTRICULAR RESPONSE MARKED LEFT AXIS DEVIATI ON LOW QRS VOLTAGE IN PRECORDIAL LEADS PROBABLE ANTEROSEPTAL MYOCARDIAL INFARCTION MARKED ST ELEVATIO N, CONSIDER INFERIOR INJURY ACUTE MO NO PREVIOUS TRACING DOCTOR: Eliot Humphrey Interpretating Date/Time 06/27/2016 08:16:47
--- NOTE | 2016-06-27 08:19 | EKG ---
Date Performed: 06/26/2016 Time Performed: 10:18:28 PTAGE: 71 years EKG: Atrial fibrillation/flutter Left axis deviation Possible inferior infarct - age undetermine d Low QRS voltages in limb leads Abnormal ECG Compared to PREVIOUS TRACING , ventricular response to atrial fibrillation/flutter is slower. Previou sly seen inferior and anterolateral ST elevation have improved. PREVIOUS TRACIN06/26/2016 06.38 DOCTOR: Eliot Humphrey Interpretating Date/Time 06/27/2016 08:18:55
--- NOTE | 2016-06-27 08:29 | HHI.PR ---
Subjective Remarks No chest pain or SOB. Chest wall pain better. Taking PO well. Vitals stable. Current Medications Medications (Trade) Dose Ordered Sig/Kenia Route Start Time Stop Time Status Last Admin (NS Flush) 2 ml UNSCH PRN .XX 06/26/16 09:30 (NS Flush) 2 ml BID .XX 06/26/16 21:00 06/27/16 07:54 (Tylenol) 325 mg Q4H PRN PO 06/26/16 09:30 (Percocet 5-325 Mg) 1 tab Q4H PRN PO 06/26/16 09:30 (Percocet 10-325 Mg) 1 tab Q4H PRN PO 06/26/16 09:30 06/27/16 00:31 (Morphine Inj) 2 mg Q30M PRN IV PUSH 06/26/16 09:30 06/27/16 02:54 (Aspirin Chew) 81 mg DAILY PO 06/27/16 09:00 06/27/16 07:52 Atropine Sulfate 0.5 mg 0.5 mg UNSCH PRN IV 06/26/16 09:30 (NS 250 ml Inj) 250 ml @ 500 mls/hr ONCE PRN IV 06/26/16 09:30 06/27/16 09:29 (Zofran Inj) 4 mg Q4H PRN IV 06/26/16 09:30 (Heparin Inj) 5,000 units Q8H SQ 06/27/16 07:00 06/27/16 05:59 (Lipitor) 80 mg HS PO 06/26/16 21:00 06/26/16 22:42 (Brilinta) 90 mg BID PO 06/27/16 09:00 06/27/16 07:52 Objective Vital Signs Date Time Temp Pulse Resp B/P Pulse Ox O2 Delivery O2 Flow Rate FiO2 06/27/16 06:00 69 06/27/16 04:00 61 06/27/16 04:00 98.2 61 17 139/91 99 06/27/16 03:11 10 06/27/16 02:44 17 06/27/16 02:00 68 06/27/16 00:00 98.2 72 20 136/91 95 06/27/16 00:00 72 06/26/16 22:00 63 06/26/16 20:43 93 Nasal Cannula 4.00 06/26/16 20:00 98.2 69 20 121/71 95 06/26/16 20:00 69 I/O 06/26/16 06/26/16 06/26/16 06/27/16 06/27/16 06/27/16 07:00 15:00 23:00 07:00 15:00 23:00 Intake Total 339 ml 480 ml Output Total 950 ml 525 ml Balance -611 ml -45 ml Intake Oral 300 ml 480 ml IV Total 39 ml 0 ml Output Urine Total 950 ml 525 ml CV:RRR Lungs: CTA Anterior chest wall: tender over mid sternum Abd: soft, NT, ND, +BS, midline vertical surgical incsion above umbilicus healing well with steristrips in place Ext: No edema or calf tenderness Result Diagram: 06/27/1651906/27/16519 Assessment and Plan Problem List: (1) STEMI (ST elevation myocardial infarction) Status: Acute Plan: S/P percutaneous ntervention. Discussed with Dr Swift. Will transfer patient to floor. Increase activity. Patient had several episodes nonsustained V. Tach yesterday. None since. Will follow Telemetry. Hold Beta Giuseppe for now due to low HR. He will begin low dose ACEI. Continue Brilinta and Aspirin. (2) Hypokalemia Status: Resolved Plan: Resolved Assessment and Plan H&H has decreased overnight. May be dilutional versus blood loss from PCI. Will repeat H&H later today Problem Qualifiers (1) STEMI (ST elevation myocardial infarction): Qualified Code: I21.3 - ST elevation myocardial infarction (STEMI), unspecified artery Pritesh Donohue MD Jun 27, 2016 08:29
--- NOTE | 2016-06-27 08:36 | PD.CARD.PN ---
Subjective Subjective Remarks Still with musculoskeletal chest pain with moving and palpitation Denies shortness of breath Objective Medications Current Medications Medications (Trade) Dose Ordered Sig/Kenia Route Start Time Stop Time Status Last Admin (NS Flush) 2 ml UNSCH PRN .XX 06/26/16 09:30 (NS Flush) 2 ml BID .XX 06/26/16 21:00 06/27/16 07:54 (Tylenol) 325 mg Q4H PRN PO 06/26/16 09:30 (Percocet 5-325 Mg) 1 tab Q4H PRN PO 06/26/16 09:30 (Percocet 10-325 Mg) 1 tab Q4H PRN PO 06/26/16 09:30 06/27/16 00:31 (Morphine Inj) 2 mg Q30M PRN IV PUSH 06/26/16 09:30 06/27/16 02:54 (Aspirin Chew) 81 mg DAILY PO 06/27/16 09:00 06/27/16 07:52 Atropine Sulfate 0.5 mg 0.5 mg UNSCH PRN IV 06/26/16 09:30 (NS 250 ml Inj) 250 ml @ 500 mls/hr ONCE PRN IV 06/26/16 09:30 06/27/16 09:29 (Zofran Inj) 4 mg Q4H PRN IV 06/26/16 09:30 (Heparin Inj) 5,000 units Q8H SQ 06/27/16 07:00 06/27/16 05:59 (Lipitor) 80 mg HS PO 06/26/16 21:00 06/26/16 22:42 (Brilinta) 90 mg BID PO 06/27/16 09:00 06/27/16 07:52 Vital Signs / I&O Vital Signs Date Time Temp Pulse Resp B/P Pulse Ox O2 Delivery O2 Flow Rate FiO2 06/27/16 08:00 66 06/27/16 06:00 69 06/27/16 04:00 61 06/27/16 04:00 98.2 61 17 139/91 99 06/27/16 03:11 10 06/27/16 02:44 17 06/27/16 02:00 68 06/27/16 00:00 98.2 72 20 136/91 95 06/27/16 00:00 72 06/26/16 22:00 63 06/26/16 20:43 93 Nasal Cannula 4.00 06/26/16 20:00 98.2 69 20 121/71 95 06/26/16 20:00 69 I/O 06/26/16 06/26/16 06/26/16 06/27/16 06/27/16 06/27/16 07:00 15:00 23:00 07:00 15:00 23:00 Intake Total 339 ml 480 ml Output Total 950 ml 525 ml Balance -611 ml -45 ml Intake Oral 300 ml 480 ml IV Total 39 ml 0 ml Output Urine Total 950 ml 525 ml Physical Exam GENERAL: NAD, AAOx3 SKIN: Warm and dry. HEAD: Atraumatic. Normocephalic. EYES: Pupils equal and round. No scleral icterus. No injection or drainage. ENT: No nasal bleeding or discharge. Mucous membranes pink and moist. NECK: Trachea midline. No JVD. CARDIOVASCULAR: Regular rate and rhythm. RESPIRATORY: No accessory muscle use. Clear to auscultation. Breath sounds equal bilaterally. GASTROINTESTINAL: Abdomen soft, non-tender, nondistended. Hepatic and splenic margins not palpable. MUSCULOSKELETAL: Extremities without clubbing, cyanosis, or edema. No obvious deformities. Right femoral no hematoma/bruit, distal pulses intact NEUROLOGICAL: Awake and alert. No obvious cranial nerve deficits. Motor grossly within normal limits. Five out of 5 muscle strength in the arms and legs. Normal speech. PSYCHIATRIC: Appropriate mood and affect; insight and judgment normal. Laboratory Laboratory Tests Test 06/26/16 06/27/16 13:19 05:20 Activated Partial 34.6 SEC Thromboplast Time White Blood Count 8.9 TH/MM3 Red Blood Count 4.57 MIL/MM3 Hemoglobin 12.8 GM/DL Hematocrit 39.2 % Mean Corpuscular Volume 85.8 FL Mean Corpuscular Hemoglobin 28.1 PG Mean Corpuscular Hemoglobin 32.7 % Concent Red Cell Distribution Width 13.8 % Platelet Count 275 TH/MM3 Mean Platelet Volume 7.8 FL Neutrophils (%) (Auto) 79.0 % Lymphocytes (%) (Auto) 9.4 % Monocytes (%) (Auto) 9.9 % Eosinophils (%) (Auto) 1.2 % Basophils (%) (Auto) 0.5 % Neutrophils # (Auto) 7.0 TH/MM3 Lymphocytes # (Auto) 0.8 TH/MM3 Monocytes # (Auto) 0.9 TH/MM3 Eosinophils # (Auto) 0.1 TH/MM3 Basophils # (Auto) 0.0 TH/MM3 CBC Comment DIFF FINAL Differential Comment Sodium Level 139 MEQ/L Potassium Level 4.0 MEQ/L Chloride Level 108 MEQ/L Carbon Dioxide Level 21.9 MEQ/L Anion Gap 9 MEQ/L Blood Urea Nitrogen 17 MG/DL Creatinine 0.96 MG/DL Estimat Glomerular Filtration 77 ML/MIN Rate Random Glucose 116 MG/DL Calcium Level 8.4 MG/DL Triglycerides Level 95 MG/DL Cholesterol Level 124 MG/DL LDL Cholesterol 70 MG/DL HDL Cholesterol 35.4 MG/DL Cholesterol/HDL Ratio 3.50 RATIO Thyroid Stimulating Hormone 0.885 uIU/ML 3rd Gen Assessment and Plan Problem List: (1) STEMI (ST elevation myocardial infarction) (2) CAD (coronary artery disease) (3) Ventricular fibrillation Assessment and Plan 1) Acute Posterior-Lateral STEMI s/p BMS (2x12) to PLB, con't ASA/Brilinta/ Statin 2) Will add CHER-I as creatinine better 3) Will start low dose BB, watch heart rate over night if too bradycardic will stop 4) Drop in Hgb most likely due to procedural lost and rehydration, will check later today, if drop then may need CT without contrast to look for retroperitoneal bleed Problem Qualifiers (1) STEMI (ST elevation myocardial infarction): Qualified Code: I21.3 - ST elevation myocardial infarction (STEMI), unspecified artery Kelvin Swift DO Jun 27, 2016 08:36
[2016-06-27] MEDS: LISINOPRIL 5 MG TAB PO SCH (09:37)
[2016-06-27] MEDS: METOPROLOL TARTRATE 25 MG TAB PO SCH ×2 (09:38→20:01)
[2016-06-27 11:51] LABS: HEMOGLOBIN A1a 1.2 %; HEMOGLOBIN A1b 1.5 %; HEMOGLOBIN Ao 84.9 %; HEMOGLOBIN LA1C 2.3 %; HEMOGLOBIN P3 5.6 %
[2016-06-27 15:56] LABS: HEMATOCRIT 38.7 % (39.0-51.0); MEAN CELL VOLUME 86.2 FL (80.0-100.0); MEAN CORPUSCULAR HEMOGLOBIN 28.8 PG (27.0-34.0); MEAN CORPUSCULAR HGB CONC 33.4 % (32.0-36.0); PLATELET COUNT 290 TH/MM3 (150-450); RED BLOOD COUNT 4.49 MIL/MM3 (4.50-5.90); RED CELL DISTRIBUTION WIDTH 13.7 % (11.6-17.2); REVIEW FLAG FINAL; WHITE BLOOD COUNT 8.8 TH/MM3 (4.0-11.0)
[2016-06-27] MEDS: APIXABAN 5 MG TABLET PO SCH (20:01)
[2016-06-27] MEDS: ATORVASTATIN 80 MG TAB PO SCH (20:02)
[2016-06-27] MEDS ORDERED: AMIODARONE 150 MG/D5W 97 ML BOLUS 60 MINUTES IV ONE ×2 (23:15)
[2016-06-27] MEDS ORDERED: AMIODARONE INJ 450 MG in D5W (EXCEL BAG) 241 ML IV SCH (23:15)
[2016-06-28] VITALS (24 sets, daily range): BP systolic 120–140; BP diastolic 82–97; PULSE 68–134; RESP 16–20; TEMP 97.6–98.7; O2SAT 93–100
[2016-06-28] MEDS: HEPARIN SODIUM - SQ 10,000 UNITS/ML VIAL SQ SCH ×2 (00:31→06:37)
[2016-06-28 06:53] LABS: BASOPHIL # 0.1 TH/MM3 (0-0.2); BASOPHIL % 0.7 % (0.0-2.0); EOSINOPHIL # 0.2 TH/MM3 (0-0.4); EOSINOPHIL % 2.1 % (0.0-4.0); HEMATOCRIT 43.4 % (39.0-51.0); HEMO FLAGS DIFF FINAL; LYMPH % 6.4 % (9.0-44.0); LYMPHOCYTE # 0.6 TH/MM3 (1.0-4.8); MEAN CELL VOLUME 85.3 FL (80.0-100.0); MEAN CORPUSCULAR HEMOGLOBIN 28.4 PG (27.0-34.0); MEAN CORPUSCULAR HGB CONC 33.3 % (32.0-36.0); MONO % 12.2 % (0.0-8.0); NEUT % 78.6 % (16.0-70.0); PLATELET COUNT 292 TH/MM3 (150-450); RED BLOOD COUNT 5.08 MIL/MM3 (4.50-5.90); RED CELL DISTRIBUTION WIDTH 13.7 % (11.6-17.2)
[2016-06-28 07:21] LABS: BICARBONATE 21.2 MEQ/L (21.0-32.0); POTASSIUM 3.6 MEQ/L (3.5-5.1)
[2016-06-28] MEDS ORDERED: CLOPIDOGREL 300 MG TAB PO ONE (09:00)
[2016-06-28] MEDS: LISINOPRIL 5 MG TAB PO SCH (09:13)
[2016-06-28] MEDS: APIXABAN 5 MG TABLET PO SCH ×2 (09:13→20:25)
[2016-06-28] MEDS: ASPIRIN 81 MG CHEW TAB PO SCH (09:13)
[2016-06-28] MEDS: METOPROLOL TARTRATE 25 MG TAB PO SCH (09:13)
[2016-06-28] MEDS: SODIUM CHLORIDE 0.9% FLUSH 10 ML FLUSH SCH ×2 (09:16→20:27)
--- NOTE | 2016-06-28 10:11 | PD.CARD.PN ---
Subjective Subjective Remarks Still having difficulty w/ rapid afib, currently on amio ggt; has musculoskeletal chest pain from CPR, but no anginal like sx. Objective Medications Administered Medications Medications (Trade) Dose Ordered Sig/Kenia Route PRN Reason Start Time Stop Time Status Last Admin Dose Admin Sodium Chloride (NS Flush) 2 ml BID .XX 06/26/16 21:00 06/27/16 20:02 Oxycodone/ Acetaminophen (Percocet 10-325 Mg) 1 tab Q4H PRN PO PAIN SCALE 6 TO 10 06/26/16 09:30 06/27/16 09:37 Morphine Sulfate (Morphine Inj) 2 mg Q30M PRN IV PUSH BREAKTHROUGH PAIN 06/26/16 09:30 06/27/16 02:54 Aspirin (Aspirin Chew) 81 mg DAILY PO 06/27/16 09:00 06/28/16 09:13 Atorvastatin Calcium (Lipitor) 80 mg HS PO 06/26/16 21:00 06/27/16 20:02 Lisinopril (Prinivil) 5 mg DAILY PO 06/27/16 09:00 06/28/16 09:13 Metoprolol Tartrate (Lopressor) 12.5 mg Q12HR PO 06/27/16 09:00 06/28/16 09:13 Apixaban (Eliquis) 5 mg BID PO 06/27/16 21:00 06/28/16 09:13 Vital Signs / I&O Vital Signs Date Time Temp Pulse Resp B/P Pulse Ox O2 Delivery O2 Flow Rate FiO2 06/28/16 06:00 100 06/28/16 05:00 104 06/28/16 04:00 106 06/28/16 04:00 98.7 107 20 124/86 96 06/28/16 03:00 107 06/28/16 02:00 106 06/28/16 01:00 116 06/28/16 00:00 98.2 134 20 133/93 93 06/28/16 00:00 126 06/27/16 23:00 133 06/27/16 22:00 124 06/27/16 21:00 124 06/27/16 20:00 98.0 137 20 128/92 96 06/27/16 20:00 134 06/27/16 19:00 125 06/27/16 18:04 97.9 93 22 146/106 100 06/27/16 18:03 137 06/27/16 16:00 98.0 72 18 138/79 100 06/27/16 16:00 62 06/27/16 14:00 74 06/27/16 12:00 97.9 62 20 136/88 97 06/27/16 12:00 62 06/27/16 10:14 18 I/O 06/27/16 06/27/16 06/27/16 06/28/16 06/28/16 06/28/16 07:00 15:00 23:00 07:00 15:00 23:00 Intake Total 480 ml 480 ml 795 ml Output Total 525 ml 2600 ml 2950 ml Balance -45 ml -2120 ml -2155 ml Intake Oral 480 ml 480 ml 480 ml IV Total 0 ml 0 ml 315 ml Output Urine Total 525 ml 2600 ml 2950 ml Physical Exam GENERAL: This is a well-nourished, well-developed patient, in no apparent distress. CARDIOVASCULAR: mildly rapid rate and irregular rhythm without murmurs, gallops , or rubs; tender to palpation reproduces his current chest pain RESPIRATORY: Clear to auscultation. Breath sounds equal bilaterally. No wheezes , rales, or rhonchi. GASTROINTESTINAL: Abdomen soft, tenderness at hernia surgery site, nondistended. Normal, active bowel sounds MUSCULOSKELETAL: Extremities without clubbing, cyanosis, or edema. NEURO: Alert & Oriented x4 to person, place, time, situation. Moves all ext x4 Laboratory Laboratory Tests Test 06/27/16 06/28/16 15:06 06:20 White Blood Count 8.8 TH/MM3 9.0 TH/MM3 Red Blood Count 4.49 MIL/MM3 5.08 MIL/MM3 Hemoglobin 12.9 GM/DL 14.4 GM/DL Hematocrit 38.7 % 43.4 % Mean Corpuscular Volume 86.2 FL 85.3 FL Mean Corpuscular Hemoglobin 28.8 PG 28.4 PG Mean Corpuscular Hemoglobin 33.4 % 33.3 % Concent Red Cell Distribution Width 13.7 % 13.7 % Platelet Count 290 TH/MM3 292 TH/MM3 Mean Platelet Volume 7.7 FL 7.6 FL Neutrophils (%) (Auto) 78.6 % Lymphocytes (%) (Auto) 6.4 % Monocytes (%) (Auto) 12.2 % Eosinophils (%) (Auto) 2.1 % Basophils (%) (Auto) 0.7 % Neutrophils # (Auto) 7.0 TH/MM3 Lymphocytes # (Auto) 0.6 TH/MM3 Monocytes # (Auto) 1.1 TH/MM3 Eosinophils # (Auto) 0.2 TH/MM3 Basophils # (Auto) 0.1 TH/MM3 CBC Comment DIFF FINAL Differential Comment Sodium Level 140 MEQ/L Potassium Level 3.6 MEQ/L Chloride Level 108 MEQ/L Carbon Dioxide Level 21.2 MEQ/L Anion Gap 11 MEQ/L Blood Urea Nitrogen 11 MG/DL Creatinine 0.93 MG/DL Estimat Glomerular Filtration 80 ML/MIN Rate Random Glucose 104 MG/DL Calcium Level 8.9 MG/DL Imaging Last Impressions Chest X-Ray 06/26/16 0639 Signed Impressions: Service Date/Time: , June 26, 2016 06:32 - CONCLUSION: Cardiomegaly with bibasilar atelectasis. Osbaldo Henry MD Assessment and Plan Problem List: (1) STEMI (ST elevation myocardial infarction) Assessment and Plan: Acute Posterior-Lateral STEMI s/p BMS (2x12) to PLB, con' t ASA/Brilinta/Statin (2) CAD (coronary artery disease) (3) Ventricular fibrillation Assessment and Plan: on bb, now revascularized, echo pending (4) Atrial fibrillation Assessment and Plan: will increase metoprolol, add low dose cardizem and d/c amio ggt. Problem Qualifiers (1) STEMI (ST elevation myocardial infarction): Qualified Code: I21.3 - ST elevation myocardial infarction (STEMI), unspecified artery Eliot Humphrey MD Jun 28, 2016 10:11
[2016-06-28] MEDS: oxyCODONE/ACETAMINOPHEN 10 MG/325 MG TAB PO PRN ×2 (10:15→17:22)
[2016-06-28] MEDS: DILTIAZEM HCL 30 MG TAB PO SCH ×3 (11:27→20:25)
--- NOTE | 2016-06-28 12:48 | HHI.PR ---
Subjective Remarks Developed A Fib with RVR. Receiving Amiodarone and now placed on Diltiazem by cardiology. Denies chest pain otehr than chest wall pain. No SOB. OOB in chair. Current Medications Medications (Trade) Dose Ordered Sig/Kenia Route Start Time Stop Time Status Last Admin (NS Flush) 2 ml UNSCH PRN .XX 06/26/16 09:30 (NS Flush) 2 ml BID .XX 06/26/16 21:00 06/27/16 20:02 (Tylenol) 325 mg Q4H PRN PO 06/26/16 09:30 (Percocet 5-325 Mg) 1 tab Q4H PRN PO 06/26/16 09:30 (Percocet 10-325 Mg) 1 tab Q4H PRN PO 06/26/16 09:30 06/28/16 10:15 (Morphine Inj) 2 mg Q30M PRN IV PUSH 06/26/16 09:30 06/27/16 02:54 (Aspirin Chew) 81 mg DAILY PO 06/27/16 09:00 06/28/16 09:13 (Atropine Inj) 0.5 mg UNSCH PRN IV 06/26/16 09:30 (Zofran Inj) 4 mg Q4H PRN IV 06/26/16 09:30 (Lipitor) 80 mg HS PO 06/26/16 21:00 06/27/16 20:02 (Prinivil) 5 mg DAILY PO 06/27/16 09:00 06/28/16 09:13 (Eliquis) 5 mg BID PO 06/27/16 21:00 06/28/16 09:13 (Plavix) 75 mg DAILY PO 06/29/16 09:00 (Lopressor) 50 mg Q12HR PO 06/28/16 21:00 (Cardizem) 30 mg QID PO 06/28/16 13:00 06/28/16 11:27 Objective Vital Signs Date Time Temp Pulse Resp B/P Pulse Ox O2 Delivery O2 Flow Rate FiO2 06/28/16 11:00 106 06/28/16 10:00 93 06/28/16 09:00 107 06/28/16 08:00 91 06/28/16 08:00 97.6 106 16 120/92 99 06/28/16 07:00 102 06/28/16 06:00 100 06/28/16 05:00 104 06/28/16 04:00 106 06/28/16 04:00 98.7 107 20 124/86 96 06/28/16 03:00 107 06/28/16 02:00 106 06/28/16 01:00 116 06/28/16 00:00 98.2 134 20 133/93 93 06/28/16 00:00 126 06/27/16 23:00 133 06/27/16 22:00 124 06/27/16 21:00 124 06/27/16 20:00 98.0 137 20 128/92 96 06/27/16 20:00 134 06/27/16 19:00 125 06/27/16 18:04 97.9 93 22 146/106 100 06/27/16 18:03 137 06/27/16 16:00 98.0 72 18 138/79 100 06/27/16 16:00 62 06/27/16 14:00 74 I/O 06/27/16 06/27/16 06/27/16 06/28/16 06/28/16 06/28/16 07:00 15:00 23:00 07:00 15:00 23:00 Intake Total 480 ml 480 ml 795 ml Output Total 525 ml 2600 ml 2950 ml Balance -45 ml -2120 ml -2155 ml Intake Oral 480 ml 480 ml 480 ml IV Total 0 ml 0 ml 315 ml Output Urine Total 525 ml 2600 ml 2950 ml Neck: Supple without LA, JVD, bruits or thyromegaly CV: IRRR Lungs: CTA Ext; No edema or calf tenderness Result Diagram: 06/28/1661906/28/16619 Assessment and Plan Problem List: (1) STEMI (ST elevation myocardial infarction) Status: Acute Plan: S/P percutaneous intervention. Asymptomatic. Brilinta discontinued when Eliquis started. Cont ACEI, Plavix, ASA and Beta Giuseppe (2) Atrial fibrillation Status: Acute Plan: Ventricular rate decreasing with Diltiazem. Cont current medications and anticoagulation. Further medication changes per cardiology (3) Hypokalemia Status: Resolved Plan: Resolved Assessment and Plan H&H improved. Will follow Problem Qualifiers (1) STEMI (ST elevation myocardial infarction): Qualified Code: I21.3 - ST elevation myocardial infarction (STEMI), unspecified artery (2) Atrial fibrillation: Qualified Code: I48.0 - Paroxysmal atrial fibrillation Pritesh Donohue MD Jun 28, 2016 12:48
[2016-06-28] MEDS: METOPROLOL TARTRATE 50 MG TAB PO SCH (20:25)
[2016-06-28] MEDS: ATORVASTATIN 80 MG TAB PO SCH (20:26)
[2016-06-29] VITALS (25 sets, daily range): BP systolic 97–121; BP diastolic 73–89; PULSE 65–122; RESP 16–18; TEMP 97.4–98.9; O2SAT 95–98
[2016-06-29] MEDS: oxyCODONE/ACETAMINOPHEN 10 MG/325 MG TAB PO PRN ×4 (03:15→23:48)
[2016-06-29] MEDS: METOPROLOL TARTRATE 50 MG TAB PO SCH ×2 (08:54→20:52)
[2016-06-29] MEDS: DILTIAZEM HCL 30 MG TAB PO SCH (08:55)
[2016-06-29] MEDS: CLOPIDOGREL 75 MG TAB PO SCH (08:55)
[2016-06-29] MEDS: ASPIRIN 81 MG CHEW TAB PO SCH (08:55)
[2016-06-29] MEDS: APIXABAN 5 MG TABLET PO SCH ×2 (08:55→20:53)
[2016-06-29] MEDS: LISINOPRIL 5 MG TAB PO SCH (08:55)
[2016-06-29] MEDS: SODIUM CHLORIDE 0.9% FLUSH 10 ML FLUSH SCH ×2 (08:56→20:51)
--- NOTE | 2016-06-29 09:24 | HHI.PR ---
Subjective Remarks HR was lower yesterday but ventricular deon currently 90-130 bpm. Feeling mildly "dizzy" when up to BR. No chest pain or SIMS. No BM since admission. PO intake fair. Current Medications Medications (Trade) Dose Ordered Sig/Kenia Route Start Time Stop Time Status Last Admin (NS Flush) 2 ml UNSCH PRN .XX 06/26/16 09:30 (NS Flush) 2 ml BID .XX 06/26/16 21:00 06/29/16 08:56 (Tylenol) 325 mg Q4H PRN PO 06/26/16 09:30 (Percocet 5-325 Mg) 1 tab Q4H PRN PO 06/26/16 09:30 (Percocet 10-325 Mg) 1 tab Q4H PRN PO 06/26/16 09:30 06/29/16 09:13 (Morphine Inj) 2 mg Q30M PRN IV PUSH 06/26/16 09:30 06/27/16 02:54 (Aspirin Chew) 81 mg DAILY PO 06/27/16 09:00 06/29/16 08:55 (Atropine Inj) 0.5 mg UNSCH PRN IV 06/26/16 09:30 (Zofran Inj) 4 mg Q4H PRN IV 06/26/16 09:30 (Lipitor) 80 mg HS PO 06/26/16 21:00 06/28/16 20:26 (Prinivil) 5 mg DAILY PO 06/27/16 09:00 06/29/16 08:55 (Eliquis) 5 mg BID PO 06/27/16 21:00 06/29/16 08:55 (Plavix) 75 mg DAILY PO 06/29/16 09:00 06/29/16 08:55 (Lopressor) 50 mg Q12HR PO 06/28/16 21:00 06/29/16 08:54 (Cardizem) 30 mg QID PO 06/28/16 13:00 06/29/16 08:55 Objective Vital Signs Date Time Temp Pulse Resp B/P Pulse Ox O2 Delivery O2 Flow Rate FiO2 06/29/16 07:00 98 06/29/16 06:00 94 06/29/16 05:00 86 06/29/16 04:00 104 06/29/16 04:00 98.9 104 18 121/73 97 4/16/17 03:00 89 06/29/16 02:00 92 06/29/16 01:00 88 06/29/16 00:00 98.6 74 16 111/81 96 06/29/16 00:00 78 06/28/16 23:00 68 06/28/16 22:00 76 06/28/16 21:00 86 06/28/16 20:00 98.5 92 18 120/86 97 06/28/16 20:00 80 06/28/16 19:00 79 06/28/16 18:00 107 06/28/16 17:00 78 06/28/16 16:00 97.8 103 16 122/82 98 06/28/16 16:00 104 06/28/16 15:00 97 06/28/16 14:00 92 06/28/16 13:00 99 06/28/16 12:00 97.8 99 16 140/97 100 06/28/16 12:00 101 06/28/16 11:00 106 06/28/16 10:00 93 I/O 06/28/16 06/28/16 06/28/16 06/29/16 06/29/16 06/29/16 07:00 15:00 23:00 07:00 15:00 23:00 Intake Total 795 ml 480 ml 720 ml Output Total 2950 ml 775 ml 475 ml Balance -2155 ml -295 ml 245 ml Intake Oral 480 ml 480 ml 720 ml IV Total 315 ml Output Urine Total 2950 ml 775 ml 475 ml # Voids 2 # Bowel Movements 0 Neck" supple without LA, JVD, bruit or thyromegaly CV: IRRR Lungs: CTA Abd: Midline incision healing well with steristrips Ext: No edema or calf tenderness Result Diagram: 06/28/1620 06/28/16 06 Assessment and Plan Problem List: (1) STEMI (ST elevation myocardial infarction) Status: Acute Plan: S/P percutaneous intervention. Asymptomatic. Cont ACEI, Plavix, ASA and Beta Giuseppe (2) Atrial fibrillation Status: Acute Plan: Ventricular rate higher this am. Discussed with Dr Humphrey. He will increase Diltiazem. Cont current medications and anticoagulation. Further medication changes per cardiology (3) Hypokalemia Status: Resolved Plan: Resolved (4) Constipation Status: Acute Plan: Colace daily and MOM today Assessment and Plan Extensive conversation with patient and at bedside in regard to pathophysiology of atrial fibrillation and means to control ventricular rate. Discussed criteria for him to be discharged home. Questions answered Problem Qualifiers (1) STEMI (ST elevation myocardial infarction): Qualified Code: I21.3 - ST elevation myocardial infarction (STEMI), unspecified artery (2) Atrial fibrillation: Qualified Code: I48.0 - Paroxysmal atrial fibrillation Pritesh Donohue MD Jun 29, 2016 09:24
--- NOTE | 2016-06-29 09:26 | PD.CARD.PN ---
Subjective Subjective Remarks Still has pain/tenderness at CPR site, Afib rates still high, intermittently 120s-130s at rest. Objective Medications Administered Medications Medications (Trade) Dose Ordered Sig/Kenia Route PRN Reason Start Time Stop Time Status Last Admin Dose Admin Sodium Chloride (NS Flush) 2 ml BID .XX 06/26/16 21:00 06/29/16 08:56 Oxycodone/ Acetaminophen (Percocet 10-325 Mg) 1 tab Q4H PRN PO PAIN SCALE 6 TO 10 06/26/16 09:30 06/29/16 09:13 Morphine Sulfate (Morphine Inj) 2 mg Q30M PRN IV PUSH BREAKTHROUGH PAIN 06/26/16 09:30 06/27/16 02:54 Aspirin (Aspirin Chew) 81 mg DAILY PO 06/27/16 09:00 06/29/16 08:55 Atorvastatin Calcium (Lipitor) 80 mg HS PO 06/26/16 21:00 06/28/16 20:26 Lisinopril (Prinivil) 5 mg DAILY PO 06/27/16 09:00 06/29/16 08:55 Apixaban (Eliquis) 5 mg BID PO 06/27/16 21:00 06/29/16 08:55 Clopidogrel Bisulfate (Plavix) 75 mg DAILY PO 06/29/16 09:00 06/29/16 08:55 Metoprolol Tartrate (Lopressor) 50 mg Q12HR PO 06/28/16 21:00 06/29/16 08:54 Diltiazem HCl (Cardizem) 30 mg QID PO 06/28/16 13:00 06/29/16 08:55 Vital Signs / I&O Vital Signs Date Time Temp Pulse Resp B/P Pulse Ox O2 Delivery O2 Flow Rate FiO2 06/29/16 07:00 98 06/29/16 06:00 94 06/29/16 05:00 86 06/29/16 04:00 104 06/29/16 04:00 98.9 104 18 121/73 97 06/29/16 03:00 89 06/29/16 02:00 92 06/29/16 01:00 88 06/29/16 00:00 98.6 74 16 111/81 96 06/29/16 00:00 78 06/28/16 23:00 68 06/28/16 22:00 76 06/28/16 21:00 86 06/28/16 20:00 98.5 92 18 120/86 97 06/28/16 20:00 80 06/28/16 19:00 79 06/28/16 18:00 107 06/28/16 17:00 78 06/28/16 16:00 97.8 103 16 122/82 98 06/28/16 16:00 104 06/28/16 15:00 97 06/28/16 14:00 92 06/28/16 13:00 99 06/28/16 12:00 97.8 99 16 140/97 100 06/28/16 12:00 101 06/28/16 11:00 106 06/28/16 10:00 93 I/O 06/28/16 06/28/16 06/28/16 06/29/16 06/29/16 06/29/16 07:00 15:00 23:00 07:00 15:00 23:00 Intake Total 795 ml 480 ml 720 ml Output Total 2950 ml 775 ml 475 ml Balance -2155 ml -295 ml 245 ml Intake Oral 480 ml 480 ml 720 ml IV Total 315 ml Output Urine Total 2950 ml 775 ml 475 ml # Voids 2 # Bowel Movements 0 Physical Exam GENERAL: This is a well-nourished, well-developed patient, in no apparent distress. CARDIOVASCULAR: mildly rapid rate and irregular rhythm without murmurs, gallops , or rubs; tender to palpation reproduces his current chest pain RESPIRATORY: Clear to auscultation. Breath sounds equal bilaterally. No wheezes , rales, or rhonchi. GASTROINTESTINAL: Abdomen soft, tenderness at hernia surgery site, nondistended. Normal, active bowel sounds MUSCULOSKELETAL: Extremities without clubbing, cyanosis, or edema. NEURO: Alert & Oriented x4 to person, place, time, situation. Moves all ext x4 Imaging Last Impressions Chest X-Ray 06/26/16 0640 Signed Impressions: Service Date/Time: June 06:32 - CONCLUSION: Cardiomegaly with bibasilar atelectasis. Osbaldo Henry MD Assessment and Plan Problem List: (1) STEMI (ST elevation myocardial infarction) Assessment and Plan: Acute Posterior-Lateral STEMI s/p BMS (2x12) to PLB, con' t ASA/Brilinta/Statin (2) CAD (coronary artery disease) (3) Atrial fibrillation Assessment and Plan: rates still high will try dilitazem 90mg qid; if good control can change to long acting in AM (4) Ventricular fibrillation Assessment and Plan: on bb, now revascularized, echo pending Problem Qualifiers (1) STEMI (ST elevation myocardial infarction): Qualified Code: I21.3 - ST elevation myocardial infarction (STEMI), unspecified artery (2) Atrial fibrillation: Qualified Code: I48.0 - Paroxysmal atrial fibrillation Eliot Humphrey MD Jun 29, 2016 09:26
[2016-06-29] MEDS ORDERED: DILTIAZEM HCL 60 MG TAB PO ONE (09:30)
[2016-06-29] MEDS: DOCUSATE SODIUM 100 MG CAP PO SCH ×2 (09:53→20:52)
[2016-06-29] MEDS: MAGNESIUM HYDROXIDE SUSP 30 ML CUP PO PRN (09:53)
[2016-06-29] MEDS ORDERED: DILTIAZEM HCL 90 MG TAB PO SCH (13:00)
[2016-06-29] MEDS ORDERED: Vancomycin Consult Pharmacy 1 EA OTHER SCH (19:30)
[2016-06-29] MEDS: ATORVASTATIN 80 MG TAB PO SCH (20:52)
[2016-06-29] MEDS: DILTIAZEM HCL 60 MG TAB PO SCH (20:52)
[2016-06-29] MEDS ORDERED: VANCOMYCIN 1,500 MG/NS 500 ML IV ONE ×2 (21:00)
[2016-06-30] VITALS (25 sets, daily range): BP systolic 93–113; BP diastolic 58–78; PULSE 48–94; RESP 14–18; TEMP 97.4–98.5; O2SAT 93–97
[2016-06-30] MEDS: oxyCODONE/ACETAMINOPHEN 10 MG/325 MG TAB PO PRN ×4 (04:04→21:07)
[2016-06-30 04:55] LABS: AUTOMATED NEUTROPHIL # 5.7 TH/MM3 (1.8-7.7); BASOPHIL # 0.1 TH/MM3 (0-0.2); BASOPHIL % 1.3 % (0.0-2.0); EOSINOPHIL # 0.5 TH/MM3 (0-0.4); EOSINOPHIL % 5.1 % (0.0-4.0); HEMATOCRIT 40.7 % (39.0-51.0); HEMO FLAGS DIFF FINAL; LYMPH % 16.6 % (9.0-44.0); LYMPHOCYTE # 1.5 TH/MM3 (1.0-4.8); MEAN CELL VOLUME 84.2 FL (80.0-100.0); MEAN CORPUSCULAR HEMOGLOBIN 29.2 PG (27.0-34.0); MEAN CORPUSCULAR HGB CONC 34.7 % (32.0-36.0); PLATELET COUNT 297 TH/MM3 (150-450); RED BLOOD COUNT 4.83 MIL/MM3 (4.50-5.90); RED CELL DISTRIBUTION WIDTH 13.6 % (11.6-17.2); WHITE BLOOD COUNT 8.8 TH/MM3 (4.0-11.0)
[2016-06-30 05:44] LABS: BICARBONATE 20.9 MEQ/L (21.0-32.0); MAGNESIUM 2.1 MG/DL (1.5-2.5); POTASSIUM 3.8 MEQ/L (3.5-5.1)
--- NOTE | 2016-06-30 08:17 | HHI.PR ---
Subjective Remarks COmplains of pain and swelling right antecubital fossa. Increased last evening. Also has increased chest wall pain especially with deep breaaths and coughing.. Receiving Percocet prn. Still no BM despite MOM but reports he feels like will have BM today. PO intake adequate. UOP adequate. Denies SOB. Current Medications Medications (Trade) Dose Ordered Sig/Kenia Route Start Time Stop Time Status Last Admin (NS Flush) 2 ml UNSCH PRN .XX 06/26/16 09:30 (NS Flush) 2 ml BID .XX 06/26/16 21:00 06/29/16 20:51 (Tylenol) 325 mg Q4H PRN PO 06/26/16 09:30 (Percocet 5-325 Mg) 1 tab Q4H PRN PO 06/26/16 09:30 (Percocet 10-325 Mg) 1 tab Q4H PRN PO 06/26/16 09:30 06/30/16 04:04 (Morphine Inj) 2 mg Q30M PRN IV PUSH 06/26/16 09:30 06/27/16 02:54 (Aspirin Chew) 81 mg DAILY PO 06/27/16 09:00 06/29/16 08:55 (Atropine Inj) 0.5 mg UNSCH PRN IV 06/26/16 09:30 (Zofran Inj) 4 mg Q4H PRN IV 06/26/16 09:30 (Lipitor) 80 mg HS PO 06/26/16 21:00 06/29/16 20:52 (Prinivil) 5 mg DAILY PO 06/27/16 09:00 06/29/16 08:55 (Eliquis) 5 mg BID PO 06/27/16 21:00 06/29/16 20:53 (Plavix) 75 mg DAILY PO 06/29/16 09:00 06/29/16 08:55 (Lopressor) 50 mg Q12HR PO 06/28/16 21:00 06/29/16 20:52 (Milk Of Magnesia Liq) 30 ml DAILY PRN PO 06/29/16 09:30 06/29/16 09:53 (Colace) 100 mg BID PO 06/29/16 09:30 06/29/16 20:52 Diltiazem HCl 60 mg 60 mg QID PO 06/29/16 21:00 06/29/16 20:52 (Vancomycin Consult Pharmacy) ml @ 0 mls/hr UNSCH OTHER 06/29/16 19:30 Objective Vital Signs Date Time Temp Pulse Resp B/P Pulse Ox O2 Delivery O2 Flow Rate FiO2 06/30/16 08:00 97.6 50 18 106/72 97 06/30/16 08:00 50 06/30/16 07:00 52 06/30/16 06:00 62 06/30/16 05:00 58 06/30/16 04:00 50 06/30/16 04:00 97.8 63 18 93/66 95 06/30/16 03:00 57 06/30/16 02:00 60 06/30/16 01:00 64 06/30/16 00:57 63 06/30/16 00:00 66 06/30/16 00:00 98.5 62 16 113/77 97 06/29/16 23:23 65 06/29/16 23:00 68 06/29/16 22:00 72 06/29/16 21:00 68 06/29/16 20:00 74 06/29/16 20:00 97.5 68 18 97/78 98 06/29/16 19:00 88 06/29/16 18:06 75 06/29/16 17:03 80 06/29/16 16:00 76 06/29/16 16:00 98.1 71 16 115/84 96 06/29/16 15:00 90 06/29/16 14:00 72 06/29/16 13:00 100 06/29/16 12:00 97.4 99 16 112/89 98 06/29/16 12:00 96 06/29/16 11:00 68 06/29/16 10:00 110 06/29/16 09:00 118 I/O 06/29/16 06/29/16 06/29/16 06/30/16 06/30/16 06/30/16 07:00 15:00 23:00 07:00 15:00 23:00 Intake Total 720 ml 720 ml 1030 ml Output Total 475 ml 400 ml 725 ml Balance 245 ml 320 ml 305 ml Intake Oral 720 ml 720 ml 480 ml IV Total 550 ml Output Urine Total 475 ml 400 ml 725 ml # Voids 1 # Bowel Movements 0 CV: IRRR Lungs: CTA Abd: distended, soft, tender around incision, +BS Ext: No edema Right upper ext: Pale erythema extending from antecuubital fossa to proxima volar forearm. Induration and tenderness at antecubital fossa. Result Diagram: 06/30/1644206/30/16442 Assessment and Plan Problem List: (1) STEMI (ST elevation myocardial infarction) Status: Acute Plan: S/P percutaneous intervention. Asymptomatic. Cont ACEI, Plavix, ASA and Beta Giuseppe Increase activity with PT today (2) Atrial fibrillation Status: Acute Plan: Ventricular rate controlled with Diltiazem. Will follow. Continue Eliquis (3) Hypokalemia Status: Resolved Plan: Resolved (4) Constipation Status: Acute Plan: Colace daily. Patient believes will have BM today (5) Chest wall pain Status: Acute Plan: Patient's pain likely from CPR and defibrillation. Cont Percocet prn (6) Cellulitis Status: Acute Plan: Cellulitis vs phlebitis right antecubital fossa. PAtient reciving VAncomycin IV. Apply warm compresses. Transition to po antibiotics at discharge Problem Qualifiers (1) STEMI (ST elevation myocardial infarction): Qualified Code: I21.3 - ST elevation myocardial infarction (STEMI), unspecified artery (2) Atrial fibrillation: Qualified Code: I48.0 - Paroxysmal atrial fibrillation (3) Cellulitis: Qualified Code: L03.113 - Cellulitis of right upper extremity Pritesh Donohue MD Jun 30, 2016 08:17
[2016-06-30] MEDS: DOCUSATE SODIUM 100 MG CAP PO SCH ×2 (08:47→21:06)
[2016-06-30] MEDS: SODIUM CHLORIDE 0.9% FLUSH 10 ML FLUSH SCH ×2 (08:47→21:07)
[2016-06-30] MEDS: ASPIRIN 81 MG CHEW TAB PO SCH (08:47)
[2016-06-30] MEDS: METOPROLOL TARTRATE 50 MG TAB PO SCH ×2 (08:48→21:06)
[2016-06-30] MEDS: LISINOPRIL 5 MG TAB PO SCH (08:48)
[2016-06-30] MEDS: DILTIAZEM HCL 60 MG TAB PO SCH ×4 (08:48→21:08)
[2016-06-30] MEDS: APIXABAN 5 MG TABLET PO SCH ×2 (08:48→21:07)
[2016-06-30] MEDS: CLOPIDOGREL 75 MG TAB PO SCH (08:48)
--- NOTE | 2016-06-30 09:55 | PD.CARD.PN ---
Subjective Subjective Remarks Feels well, no shortness of breath, still with chest pain with deep breaths Objective Medications Current Medications Medications (Trade) Dose Ordered Sig/Kenia Route Start Time Stop Time Status Last Admin (NS Flush) 2 ml UNSCH PRN .XX 06/26/16 09:30 (NS Flush) 2 ml BID .XX 06/26/16 21:00 06/30/16 08:47 (Tylenol) 325 mg Q4H PRN PO 06/26/16 09:30 (Percocet 5-325 Mg) 1 tab Q4H PRN PO 06/26/16 09:30 (Percocet 10-325 Mg) 1 tab Q4H PRN PO 06/26/16 09:30 06/30/16 08:48 (Morphine Inj) 2 mg Q30M PRN IV PUSH 06/26/16 09:30 06/27/16 02:54 (Aspirin Chew) 81 mg DAILY PO 06/27/16 09:00 06/30/16 08:47 (Atropine Inj) 0.5 mg UNSCH PRN IV 06/26/16 09:30 (Zofran Inj) 4 mg Q4H PRN IV 06/26/16 09:30 (Lipitor) 80 mg HS PO 06/26/16 21:00 06/29/16 20:52 (Prinivil) 5 mg DAILY PO 06/27/16 09:00 06/30/16 08:48 (Eliquis) 5 mg BID PO 06/27/16 21:00 06/30/16 08:48 (Plavix) 75 mg DAILY PO 06/29/16 09:00 06/30/16 08:48 (Lopressor) 50 mg Q12HR PO 06/28/16 21:00 06/30/16 08:48 (Milk Of Magnesia Liq) 30 ml DAILY PRN PO 06/29/16 09:30 06/29/16 09:53 (Colace) 100 mg BID PO 06/29/16 09:30 06/30/16 08:47 Diltiazem HCl 60 mg 60 mg QID PO 06/29/16 21:00 06/30/16 08:48 (Vancomycin Consult Pharmacy) ml @ 0 mls/hr UNSCH OTHER 06/29/16 19:30 Vital Signs / I&O Vital Signs Date Time Temp Pulse Resp B/P Pulse Ox O2 Delivery O2 Flow Rate FiO2 06/30/16 08:00 97.6 50 18 106/72 97 06/30/16 08:00 50 06/30/16 07:00 52 06/30/16 06:00 62 06/30/16 05:00 58 06/30/16 04:00 50 06/30/16 04:00 97.8 63 18 93/66 95 06/30/16 03:00 57 06/30/16 02:00 60 06/30/16 01:00 64 06/30/16 00:57 63 06/30/16 00:00 66 06/30/16 00:00 98.5 62 16 113/77 97 06/29/16 23:23 65 06/29/16 23:00 68 06/29/16 22:00 72 06/29/16 21:00 68 06/29/16 20:00 74 06/29/16 20:00 97.5 68 18 97/78 98 06/29/16 19:00 88 06/29/16 18:06 75 06/29/16 17:03 80 06/29/16 16:00 76 06/29/16 16:00 98.1 71 16 115/84 96 06/29/16 15:00 90 06/29/16 14:00 72 06/29/16 13:00 100 06/29/16 12:00 97.4 99 16 112/89 98 06/29/16 12:00 96 06/29/16 11:00 68 06/29/16 10:00 110 I/O 06/29/16 06/29/16 06/29/16 06/30/16 06/30/16 06/30/16 07:00 15:00 23:00 07:00 15:00 23:00 Intake Total 720 ml 720 ml 1030 ml Output Total 475 ml 400 ml 725 ml Balance 245 ml 320 ml 305 ml Intake Oral 720 ml 720 ml 480 ml IV Total 550 ml Output Urine Total 475 ml 400 ml 725 ml # Voids 1 # Bowel Movements 0 Physical Exam GENERAL: NAD, AAOx3 SKIN: Warm and dry. HEAD: Atraumatic. Normocephalic. EYES: Pupils equal and round. No scleral icterus. No injection or drainage. ENT: No nasal bleeding or discharge. Mucous membranes pink and moist. NECK: Trachea midline. No JVD. CARDIOVASCULAR: Regular rate and rhythm. RESPIRATORY: No accessory muscle use. Clear to auscultation. Breath sounds equal bilaterally. GASTROINTESTINAL: Abdomen soft, non-tender, nondistended. Hepatic and splenic margins not palpable. MUSCULOSKELETAL: Right antecubital edema and erythema NEUROLOGICAL: Awake and alert. No obvious cranial nerve deficits. Motor grossly within normal limits. Five out of 5 muscle strength in the arms and legs. Normal speech. PSYCHIATRIC: Appropriate mood and affect; insight and judgment normal. Laboratory Laboratory Tests Test 06/30/16 04:43 White Blood Count 8.8 TH/MM3 Red Blood Count 4.83 MIL/MM3 Hemoglobin 14.1 GM/DL Hematocrit 40.7 % Mean Corpuscular Volume 84.2 FL Mean Corpuscular Hemoglobin 29.2 PG Mean Corpuscular Hemoglobin 34.7 % Concent Red Cell Distribution Width 13.6 % Platelet Count 297 TH/MM3 Mean Platelet Volume 7.7 FL Neutrophils (%) (Auto) 65.0 % Lymphocytes (%) (Auto) 16.6 % Monocytes (%) (Auto) 12.0 % Eosinophils (%) (Auto) 5.1 % Basophils (%) (Auto) 1.3 % Neutrophils # (Auto) 5.7 TH/MM3 Lymphocytes # (Auto) 1.5 TH/MM3 Monocytes # (Auto) 1.1 TH/MM3 Eosinophils # (Auto) 0.5 TH/MM3 Basophils # (Auto) 0.1 TH/MM3 CBC Comment DIFF FINAL Differential Comment Sodium Level 137 MEQ/L Potassium Level 3.8 MEQ/L Chloride Level 107 MEQ/L Carbon Dioxide Level 20.9 MEQ/L Anion Gap 9 MEQ/L Blood Urea Nitrogen 22 MG/DL Creatinine 1.23 MG/DL Estimat Glomerular Filtration 58 ML/MIN Rate Random Glucose 100 MG/DL Calcium Level 9.0 MG/DL Magnesium Level 2.1 MG/DL Assessment and Plan Problem List: (1) STEMI (ST elevation myocardial infarction) (2) CAD (coronary artery disease) (3) Atrial fibrillation (4) Ventricular fibrillation Assessment and Plan 1) Acute Posterior-Lateral STEMI s/p BMS (2x12) to PLB, con't ASA/Plavix/Statin/ CHER-I/BB 2) Heart rates better controlled on Cardizem/BB 3) EF 50-55% 4) On Eliquis for A-Fib, [id number] = 2 (Age, recent OR/PCI) 5) Will repeat EKG for possible pericarditis, although would try to avoid high dose ASA or NSAIDs, possibly would need Colchicine Problem Qualifiers (1) STEMI (ST elevation myocardial infarction): Qualified Code: I21.3 - ST elevation myocardial infarction (STEMI), unspecified artery (2) Atrial fibrillation: Qualified Code: I48.0 - Paroxysmal atrial fibrillation Kelvin Swift DO Jun 30, 2016 09:55
[2016-06-30] MEDS: MAGNESIUM HYDROXIDE SUSP 30 ML CUP PO PRN (13:56)
--- NOTE | 2016-06-30 16:00 | EKG ---
Date Performed: 06/30/2016 Time Performed: 10:40:34 PTAGE: 71 years EKG: BASELINE ARTIFACT PRESENT. Probable atrial flutter Left axis deviation Possible extensive i nfarct - age undetermined Generalized low QRS voltages Abnormal ECG COMPARED TO PRIOR ELECTROCARDIOGR AM, Probably no significant change although baseline artifact makes interpretation difficult. PREVIOUS TRACING : 06/26/2016 10.18 DOCTOR: Yared Lehman Interpretating Date/Time 06/30/2016 15:58:52
[2016-06-30] MEDS ORDERED: VANCOMYCIN 1,500 MG/NS 500 ML IV SCH ×2 (17:00)
[2016-06-30] MEDS: ATORVASTATIN 80 MG TAB PO SCH (21:06)
[2016-07-01] VITALS (27 sets, daily range): BP systolic 92–126; BP diastolic 53–90; PULSE 46–122; RESP 12–20; TEMP 97.6–98.7; O2SAT 95–98
[2016-07-01] MEDS: oxyCODONE/ACETAMINOPHEN 10 MG/325 MG TAB PO PRN ×4 (07:23→23:32)
[2016-07-01] MEDS: APIXABAN 5 MG TABLET PO SCH ×2 (08:34→20:04)
[2016-07-01] MEDS: DILTIAZEM HCL 60 MG TAB PO SCH ×4 (08:34→20:05)
[2016-07-01] MEDS: CLOPIDOGREL 75 MG TAB PO SCH (08:34)
[2016-07-01] MEDS: DOCUSATE SODIUM 100 MG CAP PO SCH ×2 (08:34→20:05)
[2016-07-01] MEDS: ASPIRIN 81 MG CHEW TAB PO SCH (08:34)
--- NOTE | 2016-07-01 08:35 | HHI.PR ---
Subjective Remarks Feeling stronger. Ambulated wsith PT yesterday. Chest wall pain has decreased. HR in 90's this am. No SOB. PO intake better. Had large BM. Current Medications Medications (Trade) Dose Ordered Sig/Kenia Route Start Time Stop Time Status Last Admin (NS Flush) 2 ml UNSCH PRN .XX 06/26/16 09:30 (NS Flush) 2 ml BID .XX 06/26/16 21:00 06/30/16 21:07 (Tylenol) 325 mg Q4H PRN PO 06/26/16 09:30 (Percocet 5-325 Mg) 1 tab Q4H PRN PO 06/26/16 09:30 (Percocet 10-325 Mg) 1 tab Q4H PRN PO 06/26/16 09:30 07/01/16 07:23 (Morphine Inj) 2 mg Q30M PRN IV PUSH 06/26/16 09:30 06/27/16 02:54 (Aspirin Chew) 81 mg DAILY PO 06/27/16 09:00 06/30/16 08:47 (Atropine Inj) 0.5 mg UNSCH PRN IV 06/26/16 09:30 (Zofran Inj) 4 mg Q4H PRN IV 06/26/16 09:30 (Lipitor) 80 mg HS PO 06/26/16 21:00 06/30/16 21:06 (Prinivil) 5 mg DAILY PO 06/27/16 09:00 Hold 06/30/16 08:48 (Eliquis) 5 mg BID PO 06/27/16 21:00 06/30/16 21:07 (Plavix) 75 mg DAILY PO 06/29/16 09:00 06/30/16 08:48 (Milk Of Magnesia Liq) 30 ml DAILY PRN PO 06/29/16 09:30 06/30/16 13:56 (Colace) 100 mg BID PO 06/29/16 09:30 06/30/16 21:06 Diltiazem HCl 60 mg 60 mg QID PO 06/29/16 21:00 06/30/16 21:08 Pharmacy Profile Note ml @ 0 mls/hr UNSCH OTHER 06/29/16 19:30 (Vancomycin Inj/ NS 500 ml Inj) 515 ml @ 257.5 mls/ hr Q18H IV 06/30/16 17:00 06/30/16 17:38 Miscellaneous Information SPECIFIC LAB TO BE DRAWN:[facility]... ONCE ONCE .XX 07/04/16 14:45 07/04/16 14:46 (Lopressor) 25 mg Q12HR PO 07/01/16 09:00 Objective Vital Signs Date Time Temp Pulse Resp B/P Pulse Ox O2 Delivery O2 Flow Rate FiO2 07/01/16 06:00 66 07/01/16 05:00 60 07/01/16 04:00 62 07/01/16 03:00 98.2 57 18 92/53 95 07/01/16 03:00 51 07/01/16 02:00 48 07/01/16 01:00 48 07/01/16 00:00 46 06/30/16 23:00 57 06/30/16 23:00 97.4 48 16 94/58 96 06/30/16 22:00 50 06/30/16 21:00 56 06/30/16 20:00 64 06/30/16 19:00 97.7 60 14 96/63 97 06/30/16 19:00 61 06/30/16 18:00 67 06/30/16 17:00 63 06/30/16 16:00 59 06/30/16 15:00 97.5 59 18 93/64 93 06/30/16 15:00 59 06/30/16 14:02 72 06/30/16 13:00 56 06/30/16 12:21 65 06/30/16 11:05 97.6 94 18 113/78 94 06/30/16 11:05 84 06/30/16 10:00 80 06/30/16 09:00 94 I/O 06/30/16 06/30/16 06/30/16 07/01/16 07/01/16 07/01/16 07:00 15:00 23:00 07:00 15:00 23:00 Intake Total 1030 ml 720 ml 980 ml Output Total 725 ml 1225 ml Balance 305 ml 720 ml -245 ml Intake Oral 480 ml 720 ml 480 ml IV Total 550 ml 500 ml Output Urine Total 725 ml 1225 ml # Voids 4 # Bowel Movements 1 CV: IRRR Lungs: CTA Abd: soft, ND, +BS, minimally tender at midline incision from hernia surgery. Edema around incision but no erythema RUE: min erythema and palpable cord at antecubital fossa. Localized tenderness at cord Ext: No edema Result Diagram: 06/30/1644206/30/16442 Assessment and Plan Problem List: (1) STEMI (ST elevation myocardial infarction) Status: Acute Plan: S/P percutaneous intervention. Asymptomatic. Cont ACEI, Plavix, ASA and Beta Giuseppe (2) Atrial fibrillation Status: Acute Plan: Ventricular rate controlled with Diltiazem. Will follow. Continue Eliquis (3) Hypokalemia Status: Resolved Plan: Resolved (4) Constipation Status: Resolved Plan: Cont Colace (5) Chest wall pain Status: Acute Plan: Improving. Cont Percocet prn (6) Cellulitis Status: Acute Plan: Improving. Change from Vancomycin to Doxycycline po Assessment and Plan Likely discharge home tomorrow Problem Qualifiers (1) STEMI (ST elevation myocardial infarction): Qualified Code: I21.3 - ST elevation myocardial infarction (STEMI), unspecified artery (2) Atrial fibrillation: Qualified Code: I48.0 - Paroxysmal atrial fibrillation (3) Cellulitis: Qualified Code: L03.113 - Cellulitis of right upper extremity Pritesh Donohue MD Jul 01, 2016 08:35
[2016-07-01] MEDS: SODIUM CHLORIDE 0.9% FLUSH 10 ML FLUSH SCH ×2 (08:36→20:06)
[2016-07-01] MEDS ORDERED: METOPROLOL TARTRATE 25 MG TAB PO SCH (09:00)
--- NOTE | 2016-07-01 10:06 | PD.CARD.PN ---
Subjective Subjective Remarks Up and ambulating, chest pain decreased, no shortness of breath Objective Medications Current Medications Medications (Trade) Dose Ordered Sig/Kenia Route Start Time Stop Time Status Last Admin (NS Flush) 2 ml UNSCH PRN .XX 06/26/16 09:30 (NS Flush) 2 ml BID .XX 06/26/16 21:00 07/01/16 08:36 (Tylenol) 325 mg Q4H PRN PO 06/26/16 09:30 (Percocet 5-325 Mg) 1 tab Q4H PRN PO 06/26/16 09:30 (Percocet 10-325 Mg) 1 tab Q4H PRN PO 06/26/16 09:30 07/01/16 07:23 (Morphine Inj) 2 mg Q30M PRN IV PUSH 06/26/16 09:30 06/27/16 02:54 (Aspirin Chew) 81 mg DAILY PO 06/27/16 09:00 07/01/16 08:34 (Atropine Inj) 0.5 mg UNSCH PRN IV 06/26/16 09:30 (Zofran Inj) 4 mg Q4H PRN IV 06/26/16 09:30 (Lipitor) 80 mg HS PO 06/26/16 21:00 06/30/16 21:06 (Prinivil) 5 mg DAILY PO 06/27/16 09:00 Hold 06/30/16 08:48 (Eliquis) 5 mg BID PO 06/27/16 21:00 07/01/16 08:34 (Plavix) 75 mg DAILY PO 06/29/16 09:00 07/01/16 08:34 (Milk Of Magnesia Liq) 30 ml DAILY PRN PO 06/29/16 09:30 06/30/16 13:56 (Colace) 100 mg BID PO 06/29/16 09:30 07/01/16 08:34 (Cardizem) 60 mg QID PO 06/29/16 21:00 07/01/16 08:34 Miscellaneous Information SPECIFIC LAB TO BE DRAWN:[facility]... ONCE ONCE .XX 07/04/16 14:45 07/04/16 14:46 (Vibramycin) 100 mg BID PO 07/01/16 09:00 (Protonix) 40 mg DAILY PO 07/01/16 09:00 (Lopressor) 50 mg Q12HR PO 07/01/16 21:00 UNV Vital Signs / I&O Vital Signs Date Time Temp Pulse Resp B/P Pulse Ox O2 Delivery O2 Flow Rate FiO2 07/01/16 09:00 106 07/01/16 08:31 18 07/01/16 08:30 98.6 101 18 111/83 95 07/01/16 08:00 104 07/01/16 07:00 93 07/01/16 06:00 66 07/01/16 05:00 60 07/01/16 04:00 62 07/01/16 03:00 98.2 57 18 92/53 95 07/01/16 03:00 51 07/01/16 02:00 48 07/01/16 01:00 48 07/01/16 00:00 46 06/30/16 23:00 57 06/30/16 23:00 97.4 48 16 94/58 96 06/30/16 22:00 50 06/30/16 21:00 56 06/30/16 20:00 64 06/30/16 19:00 97.7 60 14 96/63 97 06/30/16 19:00 61 06/30/16 18:00 67 06/30/16 17:00 63 06/30/16 16:00 59 06/30/16 15:00 97.5 59 18 93/64 93 06/30/16 15:00 59 06/30/16 14:02 72 06/30/16 13:00 56 06/30/16 12:21 65 06/30/16 11:05 97.6 94 18 113/78 94 06/30/16 11:05 84 I/O 06/30/16 06/30/16 06/30/16 07/01/16 07/01/16 07/01/16 07:00 15:00 23:00 07:00 15:00 23:00 Intake Total 1030 ml 720 ml 980 ml Output Total 725 ml 1225 ml Balance 305 ml 720 ml -245 ml Intake Oral 480 ml 720 ml 480 ml IV Total 550 ml 500 ml Output Urine Total 725 ml 1225 ml # Voids 4 # Bowel Movements 1 Physical Exam GENERAL: NAD, AAOx3 SKIN: Warm and dry. HEAD: Atraumatic. Normocephalic. EYES: Pupils equal and round. No scleral icterus. No injection or drainage. ENT: No nasal bleeding or discharge. Mucous membranes pink and moist. NECK: Trachea midline. No JVD. CARDIOVASCULAR: Regular rate and rhythm. RESPIRATORY: No accessory muscle use. Clear to auscultation. Breath sounds equal bilaterally. GASTROINTESTINAL: Abdomen soft, non-tender, nondistended. Hepatic and splenic margins not palpable. MUSCULOSKELETAL: Right antecubital edema and erythema NEUROLOGICAL: Awake and alert. No obvious cranial nerve deficits. Motor grossly within normal limits. Five out of 5 muscle strength in the arms and legs. Normal speech. PSYCHIATRIC: Appropriate mood and affect; insight and judgment normal. Assessment and Plan Problem List: (1) STEMI (ST elevation myocardial infarction) (2) CAD (coronary artery disease) (3) Atrial fibrillation (4) Ventricular fibrillation Assessment and Plan 1) Acute Posterior-Lateral STEMI s/p BMS (2x12) to PLB, con't ASA/Plavix/Statin/ BB 2) Heart rates better controlled on Cardizem/BB 3) EF 50-55% 4) On Eliquis for A-Fib, [id number] = 2 (Age, recent [place]/PCI) 5) No pericarditis changes noted on EKG 6) CHER-I stopped due to mild hypotension over night, and increase in Creatinine... will reconsider outpatient once through acute event 7) Agree with planning discharge tomorrow Problem Qualifiers (1) STEMI (ST elevation myocardial infarction): Qualified Code: I21.3 - ST elevation myocardial infarction (STEMI), unspecified artery (2) Atrial fibrillation: Qualified Code: I48.0 - Paroxysmal atrial fibrillation Kelvin Swift DO Jul 01, 2016 10:06
[2016-07-01] MEDS: DOXYCYCLINE HYCLATE 100 MG CAP PO SCH ×2 (10:23→20:04)
[2016-07-01] MEDS: PANTOPRAZOLE SOD 40 MG DELAYED RELEASE TAB PO SCH (10:23)
[2016-07-01] MEDS: METOPROLOL TARTRATE 50 MG TAB PO SCH (20:05)
[2016-07-01] MEDS: ATORVASTATIN 80 MG TAB PO SCH (20:05)
[2016-07-02] VITALS (27 sets, daily range): BP systolic 92–126; BP diastolic 59–85; PULSE 48–124; RESP 14–18; TEMP 97.7–98.5; O2SAT 95–98
[2016-07-02] MEDS: oxyCODONE/ACETAMINOPHEN 10 MG/325 MG TAB PO PRN ×2 (03:29→20:44)
[2016-07-02 06:17] LABS: HEMATOCRIT 41.5 % (39.0-51.0); MEAN CORPUSCULAR HEMOGLOBIN 28.2 PG (27.0-34.0); MEAN CORPUSCULAR HGB CONC 33.2 % (32.0-36.0); PLATELET COUNT 356 TH/MM3 (150-450); RED BLOOD COUNT 4.88 MIL/MM3 (4.50-5.90); RED CELL DISTRIBUTION WIDTH 13.6 % (11.6-17.2); REVIEW FLAG FINAL; WHITE BLOOD COUNT 6.1 TH/MM3 (4.0-11.0)
[2016-07-02] MEDS: PANTOPRAZOLE SOD 40 MG DELAYED RELEASE TAB PO SCH (08:08)
[2016-07-02] MEDS: CLOPIDOGREL 75 MG TAB PO SCH (08:08)
[2016-07-02] MEDS: DOCUSATE SODIUM 100 MG CAP PO SCH ×2 (08:08→20:40)
[2016-07-02] MEDS: DOXYCYCLINE HYCLATE 100 MG CAP PO SCH ×2 (08:08→20:41)
[2016-07-02] MEDS: DILTIAZEM HCL 60 MG TAB PO SCH (08:08)
[2016-07-02] MEDS: ASPIRIN 81 MG CHEW TAB PO SCH (08:09)
[2016-07-02] MEDS: APIXABAN 5 MG TABLET PO SCH ×2 (08:10→20:41)
[2016-07-02] MEDS: SODIUM CHLORIDE 0.9% FLUSH 10 ML FLUSH SCH ×2 (08:11→20:41)
--- NOTE | 2016-07-02 08:12 | HHI.PR ---
Subjective Remarks Doing well. Ambulated independently yesterday. No exertional chest pain or SIMS. Chest wall pain improving. Bowels moving. Taking po well Complaining of anxiety about going home. He has never been sick before and facing uncertainty with going home. Asking for something to calm his "nerves". Current Medications Medications (Trade) Dose Ordered Sig/Kenia Route Start Time Stop Time Status Last Admin (NS Flush) 2 ml UNSCH PRN .XX 06/26/16 09:30 (NS Flush) 2 ml BID .XX 06/26/16 21:00 07/01/16 20:06 (Tylenol) 325 mg Q4H PRN PO 06/26/16 09:30 (Percocet 5-325 Mg) 1 tab Q4H PRN PO 06/26/16 09:30 (Percocet 10-325 Mg) 1 tab Q4H PRN PO 06/26/16 09:30 07/02/16 03:29 (Morphine Inj) 2 mg Q30M PRN IV PUSH 06/26/16 09:30 06/27/16 02:54 (Aspirin Chew) 81 mg DAILY PO 06/27/16 09:00 07/01/16 08:34 (Atropine Inj) 0.5 mg UNSCH PRN IV 06/26/16 09:30 (Zofran Inj) 4 mg Q4H PRN IV 06/26/16 09:30 (Lipitor) 80 mg HS PO 06/26/16 21:00 07/01/16 20:05 (Prinivil) 5 mg DAILY PO 06/27/16 09:00 Hold 06/30/16 08:48 (Eliquis) 5 mg BID PO 06/27/16 21:00 07/01/16 20:04 (Plavix) 75 mg DAILY PO 06/29/16 09:00 07/01/16 08:34 (Milk Of Magnesia Liq) 30 ml DAILY PRN PO 06/29/16 09:30 06/30/16 13:56 (Colace) 100 mg BID PO 06/29/16 09:30 07/01/16 20:05 (Cardizem) 60 mg QID PO 06/29/16 21:00 07/01/16 20:05 Miscellaneous Information SPECIFIC LAB TO BE DRAWN:VA... ONCE ONCE .XX 07/04/16 14:45 07/04/16 14:46 (Vibramycin) 100 mg BID PO 07/01/16 09:00 07/01/16 20:04 (Protonix) 40 mg DAILY PO 07/01/16 09:00 07/01/16 10:23 (Lopressor) 50 mg Q12HR PO 07/01/16 21:00 07/01/16 20:05 Objective Vital Signs Date Time Temp Pulse Resp B/P Pulse Ox O2 Delivery O2 Flow Rate FiO2 07/02/16 06:00 74 07/02/16 05:00 70 07/02/16 04:00 68 07/02/16 03:00 98.5 68 14 92/59 95 07/02/16 03:00 59 07/02/16 02:00 52 07/02/16 01:00 48 07/02/16 00:00 52 07/01/16 23:00 96 07/01/16 23:00 98.7 80 12 92/62 95 07/01/16 22:00 70 07/01/16 21:00 80 07/01/16 20:00 92 07/01/16 19:00 96 07/01/16 19:00 97.6 92 18 126/82 96 07/01/16 18:01 76 07/01/16 17:00 78 07/01/16 16:00 122 07/01/16 15:30 97.7 94 18 123/90 98 07/01/16 15:00 96 07/01/16 14:00 88 07/01/16 13:00 16 07/01/16 13:00 94 07/01/16 12:00 86 07/01/16 11:15 97.6 85 20 106/81 98 07/01/16 11:01 84 07/01/16 10:00 106 07/01/16 09:00 106 07/01/16 08:30 98.6 101 18 111/83 95 I/O 07/01/16 07/01/16 07/01/16 07/02/16 07/02/16 07/02/16 07:00 15:00 23:00 07:00 15:00 23:00 Intake Total 980 ml 720 ml 684 ml Output Total 1225 ml 1725 ml Balance -245 ml 720 ml -1041 ml Intake Oral 480 ml 720 ml 684 ml IV Total 500 ml Output Urine Total 1225 ml 1725 ml # Voids 4 # Bowel Movements 0 Gen: NAD lying in bed CV: IRRR Lungs: CTA Abd: soft, ND, +BS, midline incsion above umbilicus healing well. Subcutaneous fullness. Nontender Ext: No edema or calf tenderness Right Arm: antecubital fossa reveals no erythema. Still palpable cord but nontender. Minimal edema Result Diagram: 07/02/16 0456 06/30/16 0443 Assessment and Plan Problem List: (1) STEMI (ST elevation myocardial infarction) Status: Acute Plan: S/P percutaneous intervention. Asymptomatic. Patient will continue ASA , Plavix and Carvedilol. ACEI on hold per cardiology due to increased Creatinine. May resume as outpatient. (2) Atrial fibrillation Status: Acute Plan: Ventricular rate controlled with Diltiazem. Continue Eliquis. Further treatment per cardiology (3) Hypokalemia Status: Resolved Plan: Resolved (4) Constipation Status: Resolved Plan: Cont Colace (5) Chest wall pain Status: Acute Plan: Improving. Cont Percocet prn (6) Cellulitis Status: Acute Plan: Improved. Finish course po Doxycycline (7) Anxiety Status: Acute Plan: Patient has situational anxiety. Will provide temporary Rx for Alprazolam to use prn. If anxiety persists then will consider SSRI. Discussed with patient and and they agree Assessment and Plan Home today Problem Qualifiers (1) STEMI (ST elevation myocardial infarction): Qualified Code: I21.3 - ST elevation myocardial infarction (STEMI), unspecified artery (2) Atrial fibrillation: Qualified Code: I48.0 - Paroxysmal atrial fibrillation (3) Cellulitis: Qualified Code: L03.113 - Cellulitis of right upper extremity Pritesh Donohue MD Jul 02, 2016 08:12
[2016-07-02] MEDS ORDERED: ALPRAZolam 0.25 MG TAB PO PRN (10:15)
[2016-07-02] MEDS: DILTIAZEM HCL 30 MG TAB PO SCH ×3 (13:56→20:41)
--- NOTE | 2016-07-02 16:49 | PD.CARD.PN ---
Subjective Subjective Remarks Decreased reproducible chest pain No shortness of breath Did have some slow afib with mild pauses over night, no history of sleep apnea/ daytime somnolence Objective Medications Current Medications Medications (Trade) Dose Ordered Sig/Kenia Route Start Time Stop Time Status Last Admin (NS Flush) 2 ml UNSCH PRN .XX 06/26/16 09:30 (NS Flush) 2 ml BID .XX 06/26/16 21:00 07/02/16 08:11 (Tylenol) 325 mg Q4H PRN PO 06/26/16 09:30 (Percocet 5-325 Mg) 1 tab Q4H PRN PO 06/26/16 09:30 (Percocet 10-325 Mg) 1 tab Q4H PRN PO 06/26/16 09:30 07/02/16 03:29 (Morphine Inj) 2 mg Q30M PRN IV PUSH 06/26/16 09:30 06/27/16 02:54 (Aspirin Chew) 81 mg DAILY PO 06/27/16 09:00 07/02/16 08:09 (Atropine Inj) 0.5 mg UNSCH PRN IV 06/26/16 09:30 (Zofran Inj) 4 mg Q4H PRN IV 06/26/16 09:30 (Lipitor) 80 mg HS PO 06/26/16 21:00 07/01/16 20:05 (Prinivil) 5 mg DAILY PO 06/27/16 09:00 Hold 06/30/16 08:48 (Eliquis) 5 mg BID PO 06/27/16 21:00 07/02/16 08:10 (Plavix) 75 mg DAILY PO 06/29/16 09:00 07/02/16 08:08 (Milk Of Magnesia Liq) 30 ml DAILY PRN PO 06/29/16 09:30 06/30/16 13:56 (Colace) 100 mg BID PO 06/29/16 09:30 07/02/16 08:08 Miscellaneous Information SPECIFIC LAB TO BE DRAWN:VA... ONCE ONCE .XX 07/04/16 14:45 07/04/16 14:46 (Vibramycin) 100 mg BID PO 07/01/16 09:00 07/02/16 08:08 (Protonix) 40 mg DAILY PO 07/01/16 09:00 07/02/16 08:08 (Lopressor) 50 mg Q12HR PO 07/01/16 21:00 07/01/16 20:05 (Cardizem) 30 mg QID PO 07/02/16 13:00 07/02/16 13:56 (Xanax) 0.25 mg Q6HR PRN PO 07/02/16 10:15 Vital Signs / I&O Vital Signs Date Time Temp Pulse Resp B/P Pulse Ox O2 Delivery O2 Flow Rate FiO2 07/02/16 12:01 76 07/02/16 11:01 97.7 88 18 112/77 98 07/02/16 11:00 92 07/02/16 10:01 92 07/02/16 09:01 100 07/02/16 08:30 97.9 91 18 112/77 96 07/02/16 08:00 94 07/02/16 07:00 69 07/02/16 06:00 74 07/02/16 05:00 70 07/02/16 04:00 68 07/02/16 03:00 98.5 68 14 92/59 95 07/02/16 03:00 59 07/02/16 02:00 52 07/02/16 01:00 48 07/02/16 00:00 52 07/01/16 23:00 96 07/01/16 23:00 98.7 80 12 92/62 95 07/01/16 22:00 70 07/01/16 21:00 80 07/01/16 20:00 92 07/01/16 19:00 96 07/01/16 19:00 97.6 92 18 126/82 96 07/01/16 18:01 76 07/01/16 17:00 78 I/O 07/01/16 07/01/16 07/01/16 07/02/16 07/02/16 07/02/16 07:00 15:00 23:00 07:00 15:00 23:00 Intake Total 980 ml 720 ml 684 ml Output Total 1225 ml 1725 ml Balance -245 ml 720 ml -1041 ml Intake Oral 480 ml 720 ml 684 ml IV Total 500 ml Output Urine Total 1225 ml 1725 ml # Voids 4 # Bowel Movements 0 Physical Exam GENERAL: NAD, AAOx3 SKIN: Warm and dry. HEAD: Atraumatic. Normocephalic. EYES: Pupils equal and round. No scleral icterus. No injection or drainage. ENT: No nasal bleeding or discharge. Mucous membranes pink and moist. NECK: Trachea midline. No JVD. CARDIOVASCULAR: Irregularly irregular RESPIRATORY: No accessory muscle use. Clear to auscultation. Breath sounds equal bilaterally. GASTROINTESTINAL: Abdomen soft, non-tender, nondistended. Hepatic and splenic margins not palpable. MUSCULOSKELETAL: Right antecubital edema and erythema NEUROLOGICAL: Awake and alert. No obvious cranial nerve deficits. Motor grossly within normal limits. Five out of 5 muscle strength in the arms and legs. Normal speech. PSYCHIATRIC: Appropriate mood and affect; insight and judgment normal. Laboratory Laboratory Tests Test 07/02/16 04:56 White Blood Count 6.1 TH/MM3 Red Blood Count 4.88 MIL/MM3 Hemoglobin 13.8 GM/DL Hematocrit 41.5 % Mean Corpuscular Volume 85.0 FL Mean Corpuscular Hemoglobin 28.2 PG Mean Corpuscular Hemoglobin 33.2 % Concent Red Cell Distribution Width 13.6 % Platelet Count 356 TH/MM3 Mean Platelet Volume 8.0 FL Assessment and Plan Problem List: (1) STEMI (ST elevation myocardial infarction) (2) CAD (coronary artery disease) (3) Atrial fibrillation (4) Ventricular fibrillation Assessment and Plan 1) Acute Posterior-Lateral STEMI s/p BMS (2x12) to PLB, con't ASA/Plavix/Statin/ BB 2) Heart rates slow with pauses, Cardizem decreased to 30mg QID, trying to control rates as we can... trying to avoid a PPM if possible, if problems with tachy-jewels may need to reconsider 3) EF 50-55% 4) On Eliquis for A-Fib, [id number] = 2 (Age, recent [place]/PCI) 5) No pericarditis changes noted on EKG 6) CHER-I stopped due to mild hypotension over night, and increase in Creatinine... will reconsider outpatient once through acute event 7) Will hold overnight with bradycardia/pauses, agree with planning discharge tomorrow Problem Qualifiers (1) STEMI (ST elevation myocardial infarction): Qualified Code: I21.3 - ST elevation myocardial infarction (STEMI), unspecified artery (2) Atrial fibrillation: Qualified Code: I48.0 - Paroxysmal atrial fibrillation Kelvin Swift DO Jul 02, 2016 16:49
[2016-07-02] MEDS: ATORVASTATIN 80 MG TAB PO SCH (20:40)
[2016-07-02] MEDS: METOPROLOL TARTRATE 50 MG TAB PO SCH ×2 (20:41→21:00)
[2016-07-03] VITALS (20 sets, daily range): BP systolic 107–131; BP diastolic 67–82; PULSE 54–78; TEMP 97.7–98.6; O2SAT 96–97
[2016-07-03 07:14] LABS: POTASSIUM 3.8 MEQ/L (3.5-5.1)
--- NOTE | 2016-07-03 08:23 | HHI.PR ---
Subjective Remarks Denies SOB, lightheadedness, Nausea. Anterior chest wall pain mild. HR decreased transiently into the 30's overnight. Patient was sleeping. Hr in 5's -60's during the day. Ambulating without difficulty. OOB daily. PO intake good. Much less anxious today Current Medications Medications (Trade) Dose Ordered Sig/Kenia Route Start Time Stop Time Status Last Admin (NS Flush) 2 ml UNSCH PRN .XX 06/26/16 09:30 (NS Flush) 2 ml BID .XX 06/26/16 21:00 07/02/16 20:41 (Tylenol) 325 mg Q4H PRN PO 06/26/16 09:30 (Percocet 5-325 Mg) 1 tab Q4H PRN PO 06/26/16 09:30 (Percocet 10-325 Mg) 1 tab Q4H PRN PO 06/26/16 09:30 07/02/16 20:44 (Morphine Inj) 2 mg Q30M PRN IV PUSH 06/26/16 09:30 06/27/16 02:54 (Aspirin Chew) 81 mg DAILY PO 06/27/16 09:00 07/02/16 08:09 (Atropine Inj) 0.5 mg UNSCH PRN IV 06/26/16 09:30 (Zofran Inj) 4 mg Q4H PRN IV 06/26/16 09:30 (Lipitor) 80 mg HS PO 06/26/16 21:00 07/02/16 20:40 (Prinivil) 5 mg DAILY PO 06/27/16 09:00 Hold 06/30/16 08:48 (Eliquis) 5 mg BID PO 06/27/16 21:00 07/02/16 20:41 (Plavix) 75 mg DAILY PO 06/29/16 09:00 07/02/16 08:08 (Milk Of Magnesia Liq) 30 ml DAILY PRN PO 06/29/16 09:30 06/30/16 13:56 (Colace) 100 mg BID PO 06/29/16 09:30 07/02/16 20:40 Miscellaneous Information SPECIFIC LAB TO BE DRAWN:VA... ONCE ONCE .XX 07/04/16 14:45 07/04/16 14:46 (Vibramycin) 100 mg BID PO 07/01/16 09:00 07/02/16 20:41 (Protonix) 40 mg DAILY PO 07/01/16 09:00 07/02/16 08:08 (Lopressor) 50 mg Q12HR PO 07/01/16 21:00 07/01/16 20:05 (Cardizem) 30 mg QID PO 07/02/16 13:00 07/02/16 20:41 (Xanax) 0.25 mg Q6HR PRN PO 07/02/16 10:15 Objective Vital Signs Date Time Temp Pulse Resp B/P Pulse Ox O2 Delivery O2 Flow Rate FiO2 07/03/16 06:07 60 07/03/16 05:00 58 07/03/16 04:49 98.6 62 131/67 97 07/03/16 04:00 74 07/03/16 03:50 58 07/03/16 03:18 98.4 68 126/74 97 07/03/16 02:00 58 07/03/16 01:00 58 07/03/16 00:00 64 07/02/16 23:00 61 07/02/16 23:00 98.4 68 126/74 97 07/02/16 22:00 62 07/02/16 21:00 62 07/02/16 20:00 74 07/02/16 19:00 74 07/02/16 19:00 97.7 71 112/85 97 07/02/16 18:01 72 07/02/16 17:01 124 07/02/16 16:00 102 07/02/16 15:15 98.5 105 18 104/78 97 07/02/16 15:00 92 07/02/16 14:00 104 07/02/16 13:00 86 07/02/16 12:01 76 07/02/16 11:01 97.7 88 18 112/77 98 07/02/16 11:00 92 07/02/16 10:01 92 07/02/16 09:01 100 07/02/16 08:30 97.9 91 18 112/77 96 I/O 07/02/16 07/02/16 07/02/16 07/03/16 07/03/16 07/03/16 07:00 15:00 23:00 07:00 15:00 23:00 Intake Total 684 ml 701 ml 240 ml Output Total 1725 ml 1250 ml Balance -1041 ml -549 ml 240 ml Intake Oral 684 ml 701 ml 240 ml Output Urine Total 1725 ml 1250 ml # Voids 4 3 # Bowel Movements 0 CV: RRR Lungs: CTA Abd: soft, NT, ND, midline epigastric incision healing well with underlying subcutaneous fluctuance, no erythema Ext; No edema Result Diagram: 07/02/16 0456 07/03/16 0429 Assessment and Plan Problem List: (1) Bradycardia Status: Acute Plan: HR decreases at night. Patient asymptomatic. Will defer further treatment to Dr Ferreira. (2) STEMI (ST elevation myocardial infarction) Status: Acute Plan: S/P percutaneous intervention. Asymptomatic. Patient will continue ASA , Plavix and Carvedilol. ACEI on hold per cardiology due to increased Creatinine. May resume as outpatient. (3) Atrial fibrillation Status: Acute Plan: Ventricular rate controlled with Diltiazem. Continue Eliquis. Further treatment per cardiology (4) Hypokalemia Status: Resolved Plan: Resolved (5) Constipation Status: Resolved Plan: Cont Colace (6) Chest wall pain Status: Acute Plan: Improving. Cont Percocet prn (7) Cellulitis Status: Acute Plan: Improved. Finish course po Doxycycline (8) Anxiety Status: Acute Plan: Patient has situational anxiety. Less anxious today. Has not used an Xanax Assessment and Plan Will discharge home when cleared by cardiology Discussed patient's condition and concern about bradycardia with patient and at bedside. Questions answered Problem Qualifiers (1) STEMI (ST elevation myocardial infarction): Qualified Code: I21.3 - ST elevation myocardial infarction (STEMI), unspecified artery (2) Atrial fibrillation: Qualified Code: I48.0 - Paroxysmal atrial fibrillation (3) Constipation: Qualified Code: K59.00 - Constipation, unspecified constipation type (4) Cellulitis: Qualified Code: L03.113 - Cellulitis of right upper extremity Pritesh Donohue MD Jul 03, 2016 08:23
[2016-07-03] MEDS: DOXYCYCLINE HYCLATE 100 MG CAP PO SCH (08:26)
[2016-07-03] MEDS: ASPIRIN 81 MG CHEW TAB PO SCH (08:26)
[2016-07-03] MEDS: DOCUSATE SODIUM 100 MG CAP PO SCH (08:26)
[2016-07-03] MEDS: APIXABAN 5 MG TABLET PO SCH (08:26)
[2016-07-03] MEDS: PANTOPRAZOLE SOD 40 MG DELAYED RELEASE TAB PO SCH (08:26)
[2016-07-03] MEDS: DILTIAZEM HCL 30 MG TAB PO SCH ×2 (08:27→13:41)
[2016-07-03] MEDS: CLOPIDOGREL 75 MG TAB PO SCH (08:27)
[2016-07-03] MEDS: METOPROLOL TARTRATE 50 MG TAB PO SCH (08:27)
[2016-07-03] MEDS: SODIUM CHLORIDE 0.9% FLUSH 10 ML FLUSH SCH (08:31)
--- NOTE | 2016-07-03 14:28 | PD.CARD.PN ---
Subjective Subjective Remarks No chest pain, no shortness of breath Heart rates better over night, did have episode of heart rates in the upper 40s while sleeping, asymptomatic at the time Objective Medications Current Medications Medications (Trade) Dose Ordered Sig/Kenia Route Start Time Stop Time Status Last Admin (NS Flush) 2 ml UNSCH PRN .XX 06/26/16 09:30 (NS Flush) 2 ml BID .XX 06/26/16 21:00 07/03/16 08:31 (Tylenol) 325 mg Q4H PRN PO 06/26/16 09:30 (Percocet 5-325 Mg) 1 tab Q4H PRN PO 06/26/16 09:30 (Percocet 10-325 Mg) 1 tab Q4H PRN PO 06/26/16 09:30 07/02/16 20:44 (Morphine Inj) 2 mg Q30M PRN IV PUSH 06/26/16 09:30 06/27/16 02:54 (Aspirin Chew) 81 mg DAILY PO 06/27/16 09:00 07/03/16 08:26 (Atropine Inj) 0.5 mg UNSCH PRN IV 06/26/16 09:30 (Zofran Inj) 4 mg Q4H PRN IV 06/26/16 09:30 (Lipitor) 80 mg HS PO 06/26/16 21:00 07/02/16 20:40 (Prinivil) 5 mg DAILY PO 06/27/16 09:00 Hold 06/30/16 08:48 (Eliquis) 5 mg BID PO 06/27/16 21:00 07/03/16 08:26 (Plavix) 75 mg DAILY PO 06/29/16 09:00 07/03/16 08:27 (Milk Of Magnesia Liq) 30 ml DAILY PRN PO 06/29/16 09:30 06/30/16 13:56 (Colace) 100 mg BID PO 06/29/16 09:30 07/03/16 08:26 Miscellaneous Information SPECIFIC LAB TO BE DRAWN:VA... ONCE ONCE .XX 07/04/16 14:45 07/04/16 14:46 (Vibramycin) 100 mg BID PO 07/01/16 09:00 07/03/16 08:26 (Protonix) 40 mg DAILY PO 07/01/16 09:00 07/03/16 08:26 (Lopressor) 50 mg Q12HR PO 07/01/16 21:00 07/03/16 08:27 (Cardizem) 30 mg QID PO 07/02/16 13:00 07/03/16 13:41 (Xanax) 0.25 mg Q6HR PRN PO 07/02/16 10:15 Vital Signs / I&O Vital Signs Date Time Temp Pulse Resp B/P Pulse Ox O2 Delivery O2 Flow Rate FiO2 07/03/16 11:00 98.6 61 107/73 96 07/03/16 09:00 97.7 65 119/82 97 07/03/16 06:07 60 07/03/16 05:00 58 07/03/16 04:49 98.6 62 131/67 97 07/03/16 04:00 74 07/03/16 03:50 58 07/03/16 03:18 98.4 68 126/74 97 07/03/16 02:00 58 07/03/16 01:00 58 07/03/16 00:00 64 07/02/16 23:00 61 07/02/16 23:00 98.4 68 126/74 97 07/02/16 22:00 62 07/02/16 21:00 62 07/02/16 20:00 74 07/02/16 19:00 74 07/02/16 19:00 97.7 71 112/85 97 07/02/16 18:01 72 07/02/16 17:01 124 07/02/16 16:00 102 07/02/16 15:15 98.5 105 18 104/78 97 07/02/16 15:00 92 I/O 07/02/16 07/02/16 07/02/16 07/03/16 07/03/16 07/03/16 07:00 15:00 23:00 07:00 15:00 23:00 Intake Total 684 ml 701 ml 240 ml Output Total 1725 ml 1250 ml Balance -1041 ml -549 ml 240 ml Intake Oral 684 ml 701 ml 240 ml Output Urine Total 1725 ml 1250 ml # Voids 4 3 # Bowel Movements 0 Physical Exam GENERAL: NAD, AAOx3 SKIN: Warm and dry. HEAD: Atraumatic. Normocephalic. EYES: Pupils equal and round. No scleral icterus. No injection or drainage. ENT: No nasal bleeding or discharge. Mucous membranes pink and moist. NECK: Trachea midline. No JVD. CARDIOVASCULAR: Irregularly irregular RESPIRATORY: No accessory muscle use. Clear to auscultation. Breath sounds equal bilaterally. GASTROINTESTINAL: Abdomen soft, non-tender, nondistended. Hepatic and splenic margins not palpable. MUSCULOSKELETAL: Right antecubital decreased edema and erythema NEUROLOGICAL: Awake and alert. No obvious cranial nerve deficits. Motor grossly within normal limits. Five out of 5 muscle strength in the arms and legs. Normal speech. PSYCHIATRIC: Appropriate mood and affect; insight and judgment normal. Laboratory Laboratory Tests Test 07/03/16 04:29 Sodium Level 141 MEQ/L Potassium Level 3.8 MEQ/L Chloride Level 106 MEQ/L Carbon Dioxide Level 25.0 MEQ/L Anion Gap 10 MEQ/L Blood Urea Nitrogen 21 MG/DL Creatinine 1.25 MG/DL Estimat Glomerular Filtration 57 ML/MIN Rate Random Glucose 82 MG/DL Calcium Level 9.1 MG/DL Assessment and Plan Problem List: (1) STEMI (ST elevation myocardial infarction) (2) CAD (coronary artery disease) (3) Atrial fibrillation (4) Ventricular fibrillation Assessment and Plan 1) Acute Posterior-Lateral STEMI s/p BMS (2x12) to PLB, con't ASA/Plavix/Statin/ BB 2) Heart rates better controlled, still with bradycardia at night... discussed with Dr. Donohue, will most likely eventually need a PPM for Tachy-Mahesh, but currently heart rates are mostly controlled... will discuss with him about outpatient sleep apnea evaluation 3) EF 50-55% 4) On Eliquis for A-Fib, [id number] = 2 (Age, recent [place]/PCI) 5) No pericarditis changes noted on EKG 6) CHER-I stopped due to mild hypotension over night, and increase in Creatinine... will reconsider outpatient once through acute event 7) Plan on discharge today, discussed with Dr. Donohue, will follow up with me in 2-3 weeks... Also explained symptoms to be concerned about and patient understands Problem Qualifiers (1) STEMI (ST elevation myocardial infarction): Qualified Code: I21.3 - ST elevation myocardial infarction (STEMI), unspecified artery (2) Atrial fibrillation: Qualified Code: I48.0 - Paroxysmal atrial fibrillation Swift,Vincent G DO Jul 03, 2016 14:28
[2016-07-03] MEDS ORDERED: ATOR1TAB18 PO (14:52)
[2016-07-03] MEDS ORDERED: METO-309 PO (14:52)
[2016-07-03] MEDS ORDERED: PANT40TA3 PO (14:52)
[2016-07-03] MEDS ORDERED: OXYC1TAB36 PO (14:52)
[2016-07-03] MEDS ORDERED: ASPI81TA11 PO (14:52)
[2016-07-03] MEDS ORDERED: APIX5TAB PO (14:52)
[2016-07-03] MEDS ORDERED: DILT120C7 PO (14:52)
[2016-07-03] MEDS ORDERED: DOXY100C PO (14:52)
[2016-07-03] MEDS ORDERED: PLAV75TA29 PO (14:52)
[2016-07-03] MEDS ORDERED: ALPR.25 PO (14:52)
[2016-07-04] MEDS ORDERED: PHARMACY ORDERED LAB ONE (14:45)
--- NOTE | 2016-08-27 20:24 | HHI.DS ---
Discharge Summary Admission Date Jun 26, 2016 at 06:45 Discharge Date: Jul 03, 2016 Admitting Diagnosis STEMI (1) STEMI (ST elevation myocardial infarction) Diagnosis: Principal (2) Atrial fibrillation Diagnosis: Secondary (3) Hypokalemia Diagnosis: Secondary (4) Chest wall pain Diagnosis: Secondary (5) Anxiety Diagnosis: Secondary (6) Constipation Diagnosis: Secondary (7) Cellulitis Diagnosis: Secondary Procedures June 26, 2016-left and right heart catheterization and emergent PCI of 100% occlusion of the second posterior lateral branch of the right coronary artery- Kelvin Ferreira M.D. Brief History This 71-year-old male with no previous cardiac history developed chest tightness and shortness of breath approximately one hour prior to contacting EMS. Symptoms persisted so he called EMS and the patient was emergently transferred to this facility. In route, he had 2 episodes of ventricular tachycardia requiring CPR and defibrillation. Upon arrival to the emergency department, the patient had gained back to normal rhythm with an adequate pulse. He was awake and alert and was still complaining of chest pain. EKG revealed ST segment elevations in the lateral leads and ST segment depressions in the anterior lead consistent with an acute lateral posterior myocardial infarction. Dr. Swift was consult for cardiology and the plan was to take the patient to the cardiac catheterization lab for acute percutaneous coronary intervention. Hospital Course The patient was taken to the cardiac catheterization lab where he underwent emergent left and right heart cardiac catheterization with PCI of a 100% stenosis of the second posterior lateral branch of the right coronary artery. Intervention was successful with resolution of the stenosis. The patient was then transferred to the cardiac intensive care unit. He was placed on beta [place], statin therapy and antiplatelet therapy. The patient complained of severe chest wall pain which was likely due to the CPR and defibrillation. He was provided with analgesics as needed. The patient continued to improve. His energy level is improving and he was out of bed in a chair. The patient then developed atrial fibrillation with rapid ventricular response. He was placed on a higher dosage of beta [place], amiodarone drip and ultimately diltiazem. The patient continued to have episodic atrial fibrillation. The ventricular rate came under control, however , he had several episodes of bradycardia with heart rate in the 40s. Her medication was adjusted. The patient's discharge was held to ensure no significant bradycardia. On the day of discharge, the patient had several brief episodes of heart rate in the 40s while sleeping. He was asymptomatic. He had no dyspnea on exertion, lightheadedness or weakness when ambulating in the room. During the hospitalization he developed erythema and induration around an IV site in the right forearm. It was felt to be consistent with cellulitis and he was placed on doxycycline. The cellulitis improved throughout the hospitalization and the patient would complete his course of oral antibiotics after discharge. On the day discharge patient was ambulating independently. He still had chest wall pain but it had improved significantly. Blood pressure was stable. Heart rate was stable during the day. He was eating well, voiding well and bowels were moving. It was felt that he was medically stable for discharge from cardiology standpoint. The patient would have close followup of his heart rate and if he continued to have episodes of bradycardia, he might be a candidate for permanent pacemaker placement. The patient's discharge medications were listed on the medication reconciliation sheet. He was to followup with Dr. Ferreira in 1-2 weeks and followup with the undersigned physician in 1-2 weeks. He went for Dr. Ferreira , Dr. Donohue or EMS for any recurrent chest pain, shortness of breath, syncope, near syncope, nausea or vomiting. Pt Condition on Discharge: Good Discharge Disposition: Discharge Home Discharge Instructions DIET: Follow Instructions for: Heart Healthy Diet Activities you can perform: Regular-No Restrictions Pritesh Donohue MD Aug 27, 2016 20:24
== END 2016-07-03 16:45 | disposition home or self-care (01) | DRG 248 ==
LOC: NEPC 06:33 → NEDA 06:45 → HIMW 10:30 → HCIS 06-27 17:11
PROVIDERS: ADMIT Nuclear Medicine Nuclear Cardiology; ATTEND Nuclear Medicine Nuclear Cardiology
PROC: 02703DZ Dilation of Coronary Artery, One Artery with Intraluminal Device, Percutaneous Approach (ICD-10-PCS; principal; 2016-06-26)
PROC: 02C03ZZ Extirpation of Matter from Coronary Artery, One Artery, Percutaneous Approach (ICD-10-PCS; 2016-06-26)
PROC: 4A023N7 Measurement of Cardiac Sampling and Pressure, Left Heart, Percutaneous Approach (ICD-10-PCS; 2016-06-26)
PROC: B2111ZZ Fluoroscopy of Multiple Coronary Arteries using Low Osmolar Contrast (ICD-10-PCS; 2016-06-26)
DX: I21.29 ST elevation (STEMI) myocardial infarction involving other sites (principal); I49.01 Ventricular fibrillation; R00.1 Bradycardia, unspecified; L03.113 Cellulitis of right upper limb; I47.2 Ventricular tachycardia; I25.119 Atherosclerotic heart disease of native coronary artery with unspecified angina pectoris; Z85.46 Personal history of malignant neoplasm of prostate; K21.9 Gastro-esophageal reflux disease without esophagitis; N18.9 Chronic kidney disease, unspecified; Z90.79 Acquired absence of other genital organ(s); Z87.891 Personal history of nicotine dependence; Z80.3 Family history of malignant neoplasm of breast; I48.0 Paroxysmal atrial fibrillation; R07.1 Chest pain on breathing; K59.00 Constipation, unspecified; F41.9 Anxiety disorder, unspecified
CPT/HCPCS: 71010; 76937; 80048; 80061; 82310; 82435; 82550; 82565; 82947; 83036; 83735; 83880; 84132; 84295; 84443; 84484; 84520; 85002; 85025; 85027; 85610; 85730; 92941; 93005; 93306; 93454; C1725; C1757; C1769; C1876; C1887; C1893; J0282; J1644; J2250; J2270; J3010; J3370; J7030; J7040; Q9967

== ENCOUNTER 2016-07-11 09:24 | Inpatient (IN) | payer MEDICARE, OTHER ==
[~2016-07-11] VITALS: Ht 180.3 cm; Wt 86.9 kg
[2016-07-11] VITALS (8 sets, daily range): BP systolic 113–130; BP diastolic 59–83; PULSE 48–86; RESP 16–21; TEMP 97.6–97.9; O2SAT 96–97
[~2016-07-11 09:24] MED LIST changes: +ALPR.25 PO; +APIX5TAB PO; +ASPI81TA11 PO; +ATOR1TAB18 PO; +DILT120C7 PO; +DOXY100C PO; -HYDR-3288 PO; +METO-309 PO; +OXYC1TAB36 PO; +PANT40TA3 PO; +PLAV75TA29 PO
[2016-07-11] MEDS ORDERED: SODIUM CHLOR 0.9% 1000 ML INJ 1,000 ML IV ONE (09:45)
[2016-07-11] MEDS ORDERED: SODIUM CHLORIDE 0.9% FLUSH 10 ML FLUSH IVF PRN (09:45)
--- NOTE | 2016-07-11 09:54 | PD ---
HPI Chief Complaint: Dizziness Time Seen by Provider: 09:28 Travel History International Travel<30 days: No Contact w/Intl Traveler<30days: No Traveled to known affect area: No History of Present Illness HPI The patient is a 71-year-old male who presents emergency department for dizziness. The patient had a posterior lateral STEMI earlier this month and underwent cardiac catheterization by his long term care administrator, Dr. Swift. The patient had a stent placed and was discharged home. The patient has been feeling well, however, breakfast this morning became somewhat lightheaded and dizzy. The patient states he felt lightheaded, dizzy, however, did not have a true syncopal episode. He denied any chest pain or shortness of breath, however , felt like he was having palpitations. The patient states he stopped at a fire station and EMS transferred him to [facility]. The patient has been taking his medications as directed, recently changed his medications based on his physician's recommendations, and changed his Lopressor from 50 mg twice a day to 25 mg twice a day. He has been taking his Eliquis, aspirin, and Plavix as directed. The patient's symptoms are moderate, resolved prior to arrival, and were described as "palpitations ". PFSH Past Medical History Cardiovascular Problems: Yes (RECENT STENT PLACED AND DX OF A-FIB) Diminished Hearing: No Genitourinary: Yes (hernia repair) Reproductive: Yes (prostate sx.) Past Surgical History Joint Replacement: No Pacemaker: No Social History Alcohol Use: Yes (1-2 scotch drinks, daily, last 09/26/14) Tobacco Use: No Substance Use: No Allergies-Medications (Allergen,Severity, Reaction): Coded Allergies: No Known Allergies (Unverified , 06/26/16) Reported Meds & Prescriptions Reported Meds & Active Scripts Active Pantoprazole (Pantoprazole Sodium) 40 Mg Tab 40 Mg PO DAILY Oxycodone-Acetaminophen 10-325 mg Tab 1 Tab PO Q6HR PRN Diltiazem ER 24 HR (Diltiazem HCl) 120 Mg Caper 120 Mg PO DAILY Take in morning Plavix (Clopidogrel Bisulfate) 75 Mg Tab 75 Mg PO DAILY Atorvastatin (Atorvastatin Calcium) 80 Mg Tab 80 Mg PO HS Aspirin EC (Aspirin) 81 Mg Tabdr 81 Mg PO DAILY Eliquis (Apixaban) 5 Mg Tab 5 Mg PO BID Xanax (Alprazolam) 0.25 Mg Tab 0.25 Mg PO Q6HR PRN Reported Metoprolol Tartrate 25 Mg Tab 25 Mg PO DAILY Review of Systems Except as stated in HPI: all other systems reviewed are Neg General / Constitutional: No: Fever HENT: Positive: Lightheadedness Cardiovascular: Positive: Palpitations, Irregular Rhythm (diagnosed with A. fib on previous visit), No: Chest Pain or Discomfort, Diaphoresis, Dyspnea on exertion Respiratory: No: Shortness of Breath Gastrointestinal: No: Nausea, Vomiting, Abdominal Pain Musculoskeletal: Positive: Weakness Neurologic: Positive: Dizziness Physical Exam Narrative GENERAL: Awake, alert, 71-year-old male who appears his stated age and is in no acute respiratory distress. SKIN: Focused skin assessment warm/dry. HEAD: Atraumatic. Normocephalic. EYES: Pupils equal and round. No scleral icterus. No injection or drainage. ENT: No nasal bleeding or discharge. Mucous membranes pink and moist. NECK: Trachea midline. No JVD. CARDIOVASCULAR: Regular, bradycardic with a heart rate in the 40s.. RESPIRATORY: No accessory muscle use. Clear to auscultation. Breath sounds equal bilaterally. GASTROINTESTINAL: Abdomen soft, non-tender, nondistended. No rebound tenderness. MUSCULOSKELETAL: No obvious deformities. No clubbing. No cyanosis. No edema. NEUROLOGICAL: Awake and alert. No obvious cranial nerve deficits. Motor grossly within normal limits. Normal speech. PSYCHIATRIC: Appropriate mood and affect; insight and judgment normal. Data Data Last Documented VS Vital Signs Date Time Temp Pulse Resp B/P Pulse Ox O2 Delivery O2 Flow Rate FiO2 07/11/16 09:59 35 16 113/68 38 120/68 55 124/59 07/11/16 09:42 97.6 96 Orders Electrocardiogram (07/11/16 09:45) Complete Blood Count With Diff (07/11/16 09:45) Comprehensive Metabolic Panel (07/11/16 09:45) Magnesium (Mg) (07/11/16 09:45) Ckmb (Isoenzyme) Profile (07/11/16 09:45) Troponin I (07/11/16 09:45) Act Partial Throm Time (Ptt) (07/11/16 09:45) Prothrombin Time / Inr (Pt) (07/11/16 09:45) Chest, Single Ap (07/11/16 09:45) Ecg Monitoring (07/11/16 09:45) Iv Access Insert/Monitor (07/11/16 09:45) Oximetry (07/11/16 09:45) Sodium Chloride 0.9% Flush (Ns Flush) (07/11/16 09:45) Sodium Chlor 0.9% 1000 Ml Inj (Ns 1000 M (07/11/16 09:45) Orthostatic Vital Signs (07/11/16 09:45) Electrocardiogram (07/11/16 ) Consult Cardiology (07/11/16 ) Admit Order (Ed Use Only) (07/11/16 12:54) Labs Laboratory Tests Test 07/11/16 07/11/16 10:00 11:00 White Blood Count 6.9 TH/MM3 Red Blood Count 5.34 MIL/MM3 Hemoglobin 15.3 GM/DL Hematocrit 45.5 % Mean Corpuscular Volume 85.2 FL Mean Corpuscular Hemoglobin 28.6 PG Mean Corpuscular Hemoglobin 33.6 % Concent Red Cell Distribution Width 13.8 % Platelet Count 393 TH/MM3 Mean Platelet Volume 8.0 FL Neutrophils (%) (Auto) 68.1 % Lymphocytes (%) (Auto) 16.8 % Monocytes (%) (Auto) 8.9 % Eosinophils (%) (Auto) 4.0 % Basophils (%) (Auto) 2.2 % Neutrophils # (Auto) 4.7 TH/MM3 Lymphocytes # (Auto) 1.2 TH/MM3 Monocytes # (Auto) 0.6 TH/MM3 Eosinophils # (Auto) 0.3 TH/MM3 Basophils # (Auto) 0.2 TH/MM3 CBC Comment DIFF FINAL Differential Comment Prothrombin Time 12.0 SEC Prothromb Time International 1.1 RATIO Ratio Activated Partial 29.9 SEC Thromboplast Time Sodium Level 140 MEQ/L Potassium Level 4.3 MEQ/L Chloride Level 109 MEQ/L Carbon Dioxide Level 22.8 MEQ/L Anion Gap 8 MEQ/L Blood Urea Nitrogen 16 MG/DL Creatinine 1.15 MG/DL Estimat Glomerular Filtration 63 ML/MIN Rate Random Glucose 86 MG/DL Calcium Level 8.5 MG/DL Magnesium Level 2.2 MG/DL Total Bilirubin 0.9 MG/DL Aspartate Amino Transf 24 U/L (AST/SGOT) Alanine Aminotransferase 22 U/L (ALT/SGPT) Alkaline Phosphatase 85 U/L Total Creatine Kinase 62 U/L Troponin I 0.03 NG/ML Total Protein 6.4 GM/DL Albumin 3.3 GM/DL [facility] Medical Decision Making Medical Screen Exam Complete: Yes Emergency Medical Condition: Yes Medical Record Reviewed: Yes Interpretation(s) EKG reveals sinus bradycardia with supraventricular premature complexes. Left anterior fascicular block. Inverted T waves in lead V5, V6. Last Impressions Chest X-Ray 07/11/16 0945 Signed Impressions: Service Date/Time: Monday, July 11, 2016 09:57 - CONCLUSION: No acute disease. Umesh Verdugo MD Laboratory Tests Test 07/11/16 07/11/16 10:00 11:00 White Blood Count 6.9 TH/MM3 Red Blood Count 5.34 MIL/MM3 Hemoglobin 15.3 GM/DL Hematocrit 45.5 % Mean Corpuscular Volume 85.2 FL Mean Corpuscular Hemoglobin 28.6 PG Mean Corpuscular Hemoglobin 33.6 % Concent Red Cell Distribution Width 13.8 % Platelet Count 393 TH/MM3 Mean Platelet Volume 8.0 FL Neutrophils (%) (Auto) 68.1 % Lymphocytes (%) (Auto) 16.8 % Monocytes (%) (Auto) 8.9 % Eosinophils (%) (Auto) 4.0 % Basophils (%) (Auto) 2.2 % Neutrophils # (Auto) 4.7 TH/MM3 Lymphocytes # (Auto) 1.2 TH/MM3 Monocytes # (Auto) 0.6 TH/MM3 Eosinophils # (Auto) 0.3 TH/MM3 Basophils # (Auto) 0.2 TH/MM3 CBC Comment DIFF FINAL Differential Comment Prothrombin Time 12.0 SEC Prothromb Time International 1.1 RATIO Ratio Activated Partial 29.9 SEC Thromboplast Time Sodium Level 140 MEQ/L Potassium Level 4.3 MEQ/L Chloride Level 109 MEQ/L Carbon Dioxide Level 22.8 MEQ/L Anion Gap 8 MEQ/L Blood Urea Nitrogen 16 MG/DL Creatinine 1.15 MG/DL Estimat Glomerular Filtration 63 ML/MIN Rate Random Glucose 86 MG/DL Calcium Level 8.5 MG/DL Magnesium Level 2.2 MG/DL Total Bilirubin 0.9 MG/DL Aspartate Amino Transf 24 U/L (AST/SGOT) Alanine Aminotransferase 22 U/L (ALT/SGPT) Alkaline Phosphatase 85 U/L Total Creatine Kinase 62 U/L Troponin I 0.03 NG/ML Total Protein 6.4 GM/DL Albumin 3.3 GM/DL Differential Diagnosis Differential diagnosis includes arrhythmia, bradycardia, age of fibrillation with RVR, sick sinus syndrome, electrolyte abnormality, myocardial ischemia, pleural effusion, pericardial effusion. Narrative Course IV was established, labs are drawn and sent, and the patient was placed on cardiac telemetry monitoring and continuous pulse oximetry monitoring. EKG was ordered and interpreted. Orthostatic vital signs were obtained. IV fluids were started. The patient's electrolytes unremarkable. Chest x-ray is normal. The patient's heart rate varied between the 30s in the 60s, he had a sinus bradycardia with a heart rate as low as 31 on monitoring. The patient has a history of atrial fibrillation, now has bradycardia, may be secondary to medications versus sick sinus syndrome. Therefore, a call was placed to the patient's long term care administrator, Dr. Swift, at 12:[address] Swift evaluated the patient in the emergency department, he spoke with the goggles assembler, Dr. Brown, the patient will have a pacemaker placed on Thursday. They recommended admission to his primary physician, Dr. Donohue. Dr. Donohue is out of town, therefore, [facility] were paged for admission. The patient's diltiazem will be held, the patient will be nothing by mouth after midnight on Thursday night for pacemaker placement on Thursday. Physician Communication Physician Communication [facility] were paged for admission. I discussed the patient with Dr. Bradley who agrees with admission. Diagnosis Primary Impression: Symptomatic bradycardia Additional Impressions: Dizziness Sick sinus syndrome Admitting Information Admitting Physician Requests: Admit Condition: Stable Taz Glez MD Jul 11, 2016 09:54
[2016-07-11] MEDS ORDERED: METO25TA3 PO (10:13)
--- NOTE | 2016-07-11 10:17 | RADRPT ---
EXAM DATE/TIME: 07/11/2016 09:57 [facility] COMPARISON: CHEST SINGLE AP, June 26, 2016, 6:32. INDICATIONS : Palpitations. MEDICAL HISTORY : atrial fibrillation, heart attack 2 weeks ago SURGICAL HISTORY : Coronary artery stent. ENCOUNTER: Initial ACUITY: 1 day PAIN SCORE: 0/10 LOCATION: Bilateral chest FINDINGS: A single view of the chest demonstrates the lungs to be symmetrically aerated without evidence of mas s, infiltrate or effusion. The cardiomediastinal contours are unremarkable. Osseous structures are intact. There are degenerative changes in the glenohumeral joints right greater than left. CONCLUSION: No acute disease. Umesh Verdugo MD on July 11, 2016 at 10:13 Board Certified Radiologist. This report was verified electronically.
[2016-07-11 10:23] LABS: AUTOMATED NEUTROPHIL # 4.7 TH/MM3 (1.8-7.7); BASOPHIL # 0.2 TH/MM3 (0-0.2); BASOPHIL % 2.2 % (0.0-2.0); EOSINOPHIL # 0.3 TH/MM3 (0-0.4); HEMATOCRIT 45.5 % (39.0-51.0); HEMO FLAGS DIFF FINAL; LYMPH % 16.8 % (9.0-44.0); LYMPHOCYTE # 1.2 TH/MM3 (1.0-4.8); MEAN CELL VOLUME 85.2 FL (80.0-100.0); MEAN CORPUSCULAR HEMOGLOBIN 28.6 PG (27.0-34.0); MEAN CORPUSCULAR HGB CONC 33.6 % (32.0-36.0); MONO % 8.9 % (0.0-8.0); NEUT % 68.1 % (16.0-70.0); PLATELET COUNT 393 TH/MM3 (150-450); RED BLOOD COUNT 5.34 MIL/MM3 (4.50-5.90); RED CELL DISTRIBUTION WIDTH 13.8 % (11.6-17.2); WHITE BLOOD COUNT 6.9 TH/MM3 (4.0-11.0)
[2016-07-11 10:33] LABS: INTERNATIONAL NORMALIZED RATIO 1.1 RATIO
[2016-07-11 10:35] LABS: APTT (PATIENT) 29.9 SEC (24.3-30.1)
[2016-07-11 11:56] LABS: ALT (GPT) 22 U/L (12-78); ANION GAP 8 MEQ/L (5-15); AST (GOT) 24 U/L (15-37); BICARBONATE 22.8 MEQ/L (21.0-32.0); CHLORIDE 109 MEQ/L (98-107); GLOMERULAR FILTRATION RATE 63 ML/MIN (>89); MAGNESIUM 2.2 MG/DL (1.5-2.5); POTASSIUM 4.3 MEQ/L (3.5-5.1); SODIUM (NA) 140 MEQ/L (136-145)
[2016-07-11 11:57] LABS: BLOOD UREA NITROGEN 16 MG/DL (7-18)
[2016-07-11 11:59] LABS: ALKALINE PHOSPHATASE 85 U/L (45-117); CREATINE KINASE 62 U/L (39-308); TOTAL BILIRUBIN ADULT 0.9 MG/DL (0.2-1.0)
[2016-07-11] MEDS ORDERED: NALOXONE HCL 0.4 MG/ML AMP IV PRN (13:00)
[2016-07-11] MEDS ORDERED: ACETAMINOPHEN 325 MG TAB PO PRN (13:00)
[2016-07-11] MEDS ORDERED: ONDANSETRON HCL 4 MG/2 ML VIAL IVP PRN (13:00)
[2016-07-11] MEDS ORDERED: SODIUM CHLORIDE 0.9% FLUSH 10 ML FLUSH IV FLUSH PRN (13:00)
--- NOTE | 2016-07-11 13:50 | EKG ---
Date Performed: 07/11/2016 Time Performed: 10:44:43 PTAGE: 71 years EKG: Sinus bradycardia with nonconducted premature atrial contractions LEFT axis deviation Possi ble anterolateral infarct Nonspecific T wave changes INTERPRETATION BASED ON A DEFAULT AGE OF 40 YEAR S NO SIGNIFICANT CHANGE FROM PRIOR ELECTROCARDIOGRAM. PREVIOUS TRACING : 07/11/2016 09.44 DOCTOR: Yared Lehman Interpretating Date/Time 07/11/2016 13:49:01
--- NOTE | 2016-07-11 13:51 | EKG ---
Date Performed: 07/11/2016 Time Performed: 09:44:45 PTAGE: 71 years EKG: Sinus rhythm with nonconducted premature atrial contractions LEFT axis deviation Possible anterolateral infarct N onspecific T wave changes I cannot accurately compared to prior electrocardiogram as the previous bentley ctrocardiogram has marked artifact. PREVIOUS TRACING : 06/30/2016 10.40 DOCTOR: Yared Lehman Interpretating Date/Time 07/11/2016 13:50:54
--- NOTE | 2016-07-11 14:05 | HHI.HP ---
[facility] Phys[facility] Pritesh Donohue MD Admission Diagnosis symptomatic bradycardia, sick sinus syndrome, dizziness Diagnoses: Travel History International Travel<30 Days: No Contact w/Intl Traveler <30 Da: No Traveled to Known Affected Are: No Past Family Social History Past Medical History Prostate cancer s/p robotic-assisted prostatectomy in 2016. GERD STEMI Bradycardia Atrial fibrillation Anxiety Chronic anticoagulation Past Surgical History left inguinal hernia repair which was also repaired in 2016. He just recently had the repair of an incisional hernia at the midline of the abdomen done within the last six weeks by Dr. Goldman. arthroscopic knee arthroscopic surgery in the right knee. right inguinal hernia repair in 2005. Allergies: Coded Allergies: No Known Allergies (Unverified , 06/26/16) Family History His father age 96 of natural causes. Mother of breast cancer. He has two sisters with a history of breast cancer. Social History He is . 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 He does not smoke, but he did smoke in the remote past. He consumes alcohol on a social basis. He is and lives with his spouse. Physical Exam Vital Signs Vital Signs Date Time Temp Pulse Resp B/P Pulse Ox O2 Delivery O2 Flow Rate FiO2 07/11/16 09:59 35 16 113/68 38 120/68 55 124/59 07/11/16 09:42 97.6 48 16 113/68 96 07/11/16 09:42 40 98 Physical Exam GENERAL: This is a well-nourished, well-developed patient, in no apparent distress. SKIN: No rashes, ecchymoses or lesions. Cool and dry. HEAD: Atraumatic. Normocephalic. No temporal or scalp tenderness. EYES: Pupils equal round and reactive. Extraocular motions intact. No scleral icterus. No injection or drainage. ENT: Nose without bleeding, purulent drainage or septal hematoma. Throat without erythema, tonsillar hypertrophy or exudate. Uvula midline. Airway patent. NECK: Trachea midline. No JVD or lymphadenopathy. Supple, nontender, no meningeal signs. CARDIOVASCULAR: Irregular rate and irregular rhythm. Bradycardic. Without murmurs, gallops, or rubs. Tenderness to palpation the chest wall which has been stable. RESPIRATORY: Clear to auscultation. Breath sounds equal bilaterally. No wheezes , rales, or rhonchi. GASTROINTESTINAL: Abdomen soft, non-tender, nondistended. No hepato-splenomegaly , or palpable masses. No guarding. At this incision there is mild induration to palpation. MUSCULOSKELETAL: Extremities without clubbing, cyanosis, or edema. No joint tenderness, effusion, or edema noted. No calf tenderness. Negative Homans sign bilaterally. NEUROLOGICAL: Awake and alert. Cranial nerves II through XII intact. Motor and sensory grossly within normal limits. Five out of 5 muscle strength in all muscle groups. Normal speech. Laboratory Laboratory Tests Test 07/11/16 07/11/16 10:00 11:00 White Blood Count 6.9 Red Blood Count 5.34 Hemoglobin 15.3 Hematocrit 45.5 Mean Corpuscular Volume 85.2 Mean Corpuscular Hemoglobin 28.6 Mean Corpuscular Hemoglobin 33.6 Concent Red Cell Distribution Width 13.8 Platelet Count 393 Mean Platelet Volume 8.0 Neutrophils (%) (Auto) 68.1 Lymphocytes (%) (Auto) 16.8 Monocytes (%) (Auto) 8.9 Eosinophils (%) (Auto) 4.0 Basophils (%) (Auto) 2.2 Neutrophils # (Auto) 4.7 Lymphocytes # (Auto) 1.2 Monocytes # (Auto) 0.6 Eosinophils # (Auto) 0.3 Basophils # (Auto) 0.2 CBC Comment DIFF FINAL Differential Comment Prothrombin Time 12.0 Prothromb Time International 1.1 Ratio Activated Partial 29.9 Thromboplast Time Sodium Level 140 Potassium Level 4.3 Chloride Level 109 Carbon Dioxide Level 22.8 Anion Gap 8 Blood Urea Nitrogen 16 Creatinine 1.15 Estimat Glomerular Filtration 63 Rate Random Glucose 86 Calcium Level 8.5 Magnesium Level 2.2 Total Bilirubin 0.9 Aspartate Amino Transf 24 (AST/SGOT) Alanine Aminotransferase 22 (ALT/SGPT) Alkaline Phosphatase 85 Total Creatine Kinase 62 Troponin I 0.03 Total Protein 6.4 Albumin 3.3 Result Diagram: 07/11/16 1000 07/11/16 1100 Imaging Last Impressions Chest X-Ray 07/11/16 0945 Signed Impressions: Service Date/Time: Monday, July 11, 2016 09:57 - CONCLUSION: No acute disease. Umesh Verdugo MD Assessment and Plan Assessment and Plan 71-year-old male with a recent STEMI, bradycardia and atrial fibrillation Symptomatic bradycardia -Most likely sick sinus syndrome. -Dr. Amor d/w Dr. Swift Senior Program Manager and stated patient will need a pacemaker. -Consult for ceiling insulation blower Dr. Swift already placed. -Will need to admit to [facility] and monitor over cardiac telemetry. Will give atropine NC for HR<30. Atrial fibrillation -Due to bradycardia will need to hold Cardizem and metoprolol. -Patient is on Eliquis. Will continue with Eliquis. But will need to hold for at least 24 hours if patient is getting a procedure. Will defer to ceiling insulation blower. CAD/recent STEMI -Will continue with home regimen. Will have to hold metoprolol due to bradycardia. GERD/Anxiety -Continue with home regimen. Incisional hernia -Most likely hematoma at the site. -Patient had an ultrasound done with his surgeon. -Will try to obtain ultrasound. -Continue to monitor clinically. DVT prophylaxis -Patient is on Eliquis. Code Status full Discussed Condition With patient and his Physician Certification 2 Midnight Certification Type: Admission for Inpatient Services Order for Inpatient Services The services are ordered in accordance with Medicare regulations or non- Medicare payer requirements, as applicable. In the case of services not specified as inpatient-only, they are appropriately provided as inpatient services in accordance with the 2-midnight benchmark. Estimated LOS (days): 2 3 days is the estimated time the patient will need to remain in the hospital, assuming treatment plan goals are met and no additional complications. Post-Hospital Plan: Irma Gray MD Jul 11, 2016 14:05
[2016-07-11] MEDS: SODIUM CHLORIDE 0.9% FLUSH 10 ML FLUSH IV FLUSH SCH (20:58)
[2016-07-11] MEDS: ATORVASTATIN 80 MG TAB PO SCH (20:59)
[2016-07-11] MEDS: APIXABAN 5 MG TABLET PO SCH (20:59)
--- NOTE | 2016-07-11 22:01 | MB ---
cc: SHANNON GOTTI MD, VINCENT G. DO (fax cc to both above doctors) DATE OF CONSULTATION 07/11/16 REASON FOR CONSULTATION Symptomatic bradycardia, sick sinus syndrome. HISTORY OF PRESENT ILLNESS Alfred Anderson is a pleasant 71-year-old male who presents to [facility] emergency room on July 11, 2016 due to dizziness. Earlier this month he had a posterolateral ST elevation myocardial infarction and underwent cardiac catheterization with placement of a bare metal stent. During his hospitalization, he then went into atrial fibrillation with rapid ventricular response. This was difficult to control and required multiple medications. After being controlled, his heart rate was mostly in the 50s. He was discharged on metoprolol 25 mg in the morning and Cardizem 120 mg daily. He had been feeling well most of the week and then this morning, after eating breakfast, he was with his friend and was feeling lightheaded. He denies chest pain or shortness of breath with the episodes. He stopped at a fire station and they said that he was in atrial fibrillation. He was recommended to go to the emergency room. On arrival to the emergency room, he was found to be in sinus bradycardia. While in the emergency room, telemetry shows heart rates down into the low to mid 30s. In seeing him he is currently hemodynamically stable without chest pain or shortness of breath. PAST MEDICAL HISTORY 1. Coronary artery disease. 2. Atrial fibrillation which has been difficult to control with tachybrady syndrome. 3. History of prostate cancer 4. Gastroesophageal reflux disease. PAST SURGICAL HISTORY 1. Cardiac catheterization (June 26, 2016) acute posterolateral ST elevation myocardial infarction, left main 10%, LAD mild tortuosity but no significant disease, ramus normal-appearing vessel with no significant disease, left circumflex with no significant disease, RCA dominant vessel with a PDA that gives off no significant disease. Second posterolateral branch 100% occluded acutely status post Multilink mini Vision bare metal stent (2 x 12). 2. Recent hernia repair (June 18, 2016) 3. Radical prostatectomy for prostate cancer. ALLERGIES NO KNOWN DRUG ALLERGIES. MEDICATIONS 1. Eliquis 5 mg b.i.d. 2. Xanax 0.25 mg every 6 hours as needed 3. Metoprolol tartrate 25 mg daily 4. Cardizem ER 120 mg daily 5. Lipitor 80 mg every night 6. Aspirin 81 mg daily 7. Oxycodone/acetaminophen 12/324 mg every 6 hours as needed for pain. 8. Plavix 75 mg daily 9. Protonix 40 mg daily. FAMILY HISTORY Denies premature coronary artery disease or sudden cardiac within the family. SOCIAL HISTORY The patient lives with his at home. He denies tobacco, alcohol or drug abuse. He does have one to two scotch drinks a few nights a week. REVIEW OF SYSTEMS 14-systems were reviewed including osteopathic, pertinent positives and negatives above otherwise negative. PHYSICAL EXAMINATION VITAL SIGNS: Temperature 97.6, heart rate 50, blood pressure 113/68, respirations 16, pulse ox 98% on room air. GENERAL: The patient appears well in no acute distress, alert awake and oriented x3. HEENT: Extraocular muscles intact. Mucous membranes moist. NECK: Supple. No JVD at 45 degrees. No carotid bruits heard bilaterally. Carotid upstroke is brisk in nature. HEART: Mildly bradycardic but regular rhythm. Positive first and second heart sounds. LUNGS: Clear to auscultation bilaterally. No wheezes, rales or rhonchi. ABDOMEN: Soft, nontender, nondistended, but there is a mild hernia noted. EXTREMITIES: no clubbing, cyanosis or edema. Femoral and distal pulses intact bilaterally. NEUROLOGIC: No focal deficits. SKIN: Warm, dry and intact. OSTEOPATHIC: No kyphoscoliosis, lordosis or paraspinal tender points. LABORATORY FINDINGS Hemoglobin 15.3, hematocrit 45.5, platelets 393. Potassium 4.3, BUN 16, creatinine 1.15. CARDIOLOGY STUDIES Electrocardiogram (July 11, 2016 at 0945) sinus bradycardia at 41 beats per minute, posterolateral infarct recent, nonspecific ST-T wave changes. IMPRESSION 1. Tachybrady syndrome. 2. Symptomatic bradycardia. 3. Atrial fibrillation which is difficult to control currently on Eliquis for anticoagulation. 4. Coronary artery disease with recent ST-elevation myocardial infarction status post Multilink mini Vision bare metal stent (2 x 12) to second posterolateral branch. RECOMMENDATIONS 1. Mr. Anderson likely has tachybrady syndrome. During his last hospitalization, we had difficulty controlling his atrial fibrillation and, when he was in sinus rhythm, it was usually significantly bradycardic with rates in the 40s to 50s. 2. He appears to have episodes of bradycardia down into the 30s and 40s while here. 3. With decreasing his current medications, I am concerned that he will be back into atrial fibrillation with rapid ventricular response. 4. I discussed with Dr. Brown, EP Cardiology, about consideration of permanent pacemaker for his tachybrady syndrome. We will plan on admitting him with most likely placement of a permanent pacemaker on Thursday as the patient is currently on Eliquis. This will have to be stopped at the discretion of Dr. Brown preoperatively. 5. He will continue on aspirin and Plavix with a plan on discharge being on aspirin, Plavix and Eliquis. He will follow up in the office with me and, at that time, consideration will be made for stopping aspirin and continuing on Plavix and Eliquis. Further recommendations will be made based on the hospital course. Thank you for allowing me to see Alfred Anderson. If there are any questions, please do not hesitate to call. Kelvin Swift DO VGP/ /6:37 PM /9:34 PM MTDNancy
--- NOTE | 2016-07-11 22:37 | MB ---
cc: CLINT ROLDAN HANSCY M.D. DATE OF CONSULTATION 07/11/16 REASON FOR CONSULTATION Severe symptomatic bradycardia, tachy-jewels episode. HISTORY OF PRESENT ILLNESS Mr. Anderson is a 71-year-old gentleman with history of myocardial infarction, previous PTCA plus stent by Dr. Roldan, tachy-jewels syndrome, admitted due to symptomatic bradycardia, dizziness and near syncope. Heart rate was in the 30s. Episode of 2:1 AV block observed also. I was called by Dr. Roldan for evaluation for pacer insertion. The chart was reviewed. The patient was evaluated. ALLERGIES None. SOCIAL HISTORY The patient denies smoking, drinks occasionally. FAMILY HISTORY Noncontributory to his current medical condition. MEDICATIONS 1. Cardizem 2. Metoprolol. 3. Eliquis. 4. Aspirin. 5. Lipitor 6. Plavix. REVIEW OF SYSTEMS Currently the patient refers no chest pain, no chest discomfort. He refers some dizziness and near syncope but no fever. PHYSICAL EXAMINATION GENERAL: Alert, fully oriented. VITAL SIGNS: Blood pressure 113/69, pulse 86, respiratory rate 18. LUNGS: Ventilated. CARDIOVASCULAR: S1, S2, regular. No gallop. ABDOMEN: Soft. No mass. EXTREMITIES: No edema. CARDIOLOGY STUDIES Electrocardiogram - sinus rhythm, inferior Q-wave, diffuse ST changes. LABORATORY DATA Hemoglobin is 15.3, white blood cell 6.9, potassium 4.3, creatinine is 1.15. INR 1.1. ASSESSMENT AND RECOMMENDATIONS Mr. Anderson had recent myocardial infarction. He has a history of atrial fibrillation. He has sick sinus syndrome, tachy-jewels episode. Cardizem and metoprolol was used for heart rate control. The patient's heart rate dropped. He is very symptomatic. The patient was on a very small dose of metoprolol and Cardizem. His rate needs to be controlled. He has tachy-jewels. The gentleman will need a permanent pacemaker. The risks, the nature and the benefit of the procedure are clearly stated to him. Risks include pneumothorax, cardiac perforation, stroke and even . He understood and agreed to proceed. The patient received Eliquis and Plavix this morning. Because he is on both agents, he needs to be at least 36 hours off Eliquis before any procedure. Case discussed with him and his family. The patient's procedure will be most likely Yazan morning. MD MYA Porter/ /7:20 PM /10:21 PM
[2016-07-12] VITALS (29 sets, daily range): BP systolic 106–124; BP diastolic 63–86; PULSE 40–127; RESP 16–18; TEMP 97.9–98.1; O2SAT 95–99
[2016-07-12 06:54] LABS: HEMATOCRIT 42.1 % (39.0-51.0); MEAN CELL VOLUME 85.3 FL (80.0-100.0); MEAN CORPUSCULAR HEMOGLOBIN 27.7 PG (27.0-34.0); MEAN CORPUSCULAR HGB CONC 32.4 % (32.0-36.0); PLATELET COUNT 342 TH/MM3 (150-450); RED BLOOD COUNT 4.94 MIL/MM3 (4.50-5.90); RED CELL DISTRIBUTION WIDTH 13.9 % (11.6-17.2); REVIEW FLAG FINAL; WHITE BLOOD COUNT 7.1 TH/MM3 (4.0-11.0)
--- NOTE | 2016-07-12 07:19 | PD.CARD.PN ---
Subjective Subjective Remarks no CV complaints Objective Medications Current Medications Medications (Trade) Dose Ordered Sig/Kenia Route Start Time Stop Time Status Last Admin (NS Flush) 2 ml UNSCH PRN IVF 07/11/16 09:45 (NS Flush) 2 ml UNSCH PRN IV FLUSH 07/11/16 13:00 (NS Flush) 2 ml BID IV FLUSH 07/11/16 21:00 07/11/16 20:58 (Tylenol) 650 mg Q4H PRN PO 07/11/16 13:00 (Zofran Inj) 4 mg Q6H PRN IVP 07/11/16 13:00 (Narcan Inj) 0.4 mg UNSCH PRN IV 07/11/16 13:00 (Xanax) 0.25 mg Q6HR PRN PO 07/11/16 13:00 (Eliquis) 5 mg BID PO 07/11/16 21:00 07/11/16 20:59 (Ecotrin Ec) 81 mg DAILY PO 07/12/16 09:00 (Lipitor) 80 mg HS PO 07/11/16 21:00 07/11/16 20:59 (Protonix) 40 mg DAILY PO 07/12/16 09:00 (Plavix) 75 mg DAILY PO 07/12/16 09:00 Vital Signs / I&O Vital Signs Date Time Temp Pulse Resp B/P Pulse Ox O2 Delivery O2 Flow Rate FiO2 07/12/16 06:00 40 07/12/16 04:53 98.1 52 16 112/68 99 07/12/16 04:00 46 07/12/16 03:00 51 07/12/16 02:00 50 07/12/16 01:00 48 07/12/16 00:16 98.1 47 16 106/71 98 07/12/16 00:00 50 07/11/16 23:00 50 07/11/16 22:00 51 07/11/16 21:35 97.7 62 16 130/83 97 07/11/16 20:00 49 18 120/64 96 Room Air 07/11/16 16:08 86 20 113/69 97 07/11/16 10:01 97.9 83 21 124/59 97 07/11/16 09:59 35 16 113/68 38 120/68 55 124/59 07/11/16 09:42 97.6 48 16 113/68 96 07/11/16 09:42 40 98 I/O 07/11/16 07/11/16 07/11/16 07/12/16 07/12/16 07/12/16 07:00 15:00 23:00 07:00 15:00 23:00 Output Total 700 ml 500 ml Balance -700 ml -500 ml Output Urine Total 700 ml 500 ml Physical Exam GENERAL: Well-nourished, well-developed patient. SKIN: Warm and dry. HEAD: Normocephalic. EYES: No scleral icterus. No injection or drainage. NECK: Supple, trachea midline. No JVD or lymphadenopathy. CARDIOVASCULAR: Regular rate and rhythm without murmurs, gallops, or rubs. RESPIRATORY: Breath sounds equal bilaterally. No accessory muscle use. GASTROINTESTINAL: Abdomen soft, non-tender, nondistended. EXTREMITIES: No cyanosis, or edema. NEUROLOGICAL: Awake, alert, and oriented x 3. Non-focal. Laboratory Laboratory Tests Test 07/11/16 07/11/16 07/12/16 10:00 11:00 06:00 White Blood Count 6.9 TH/MM3 7.1 TH/MM3 Red Blood Count 5.34 MIL/MM3 4.94 MIL/MM3 Hemoglobin 15.3 GM/DL 13.7 GM/DL Hematocrit 45.5 % 42.1 % Mean Corpuscular Volume 85.2 FL 85.3 FL Mean Corpuscular Hemoglobin 28.6 PG 27.7 PG Mean Corpuscular Hemoglobin 33.6 % 32.4 % Concent Red Cell Distribution Width 13.8 % 13.9 % Platelet Count 393 TH/MM3 342 TH/MM3 Mean Platelet Volume 8.0 FL 8.1 FL Neutrophils (%) (Auto) 68.1 % Lymphocytes (%) (Auto) 16.8 % Monocytes (%) (Auto) 8.9 % Eosinophils (%) (Auto) 4.0 % Basophils (%) (Auto) 2.2 % Neutrophils # (Auto) 4.7 TH/MM3 Lymphocytes # (Auto) 1.2 TH/MM3 Monocytes # (Auto) 0.6 TH/MM3 Eosinophils # (Auto) 0.3 TH/MM3 Basophils # (Auto) 0.2 TH/MM3 CBC Comment DIFF FINAL Differential Comment Prothrombin Time 12.0 SEC Prothromb Time International 1.1 RATIO Ratio Activated Partial 29.9 SEC Thromboplast Time Sodium Level 140 MEQ/L Potassium Level 4.3 MEQ/L Chloride Level 109 MEQ/L Carbon Dioxide Level 22.8 MEQ/L Anion Gap 8 MEQ/L Blood Urea Nitrogen 16 MG/DL Creatinine 1.15 MG/DL Estimat Glomerular Filtration 63 ML/MIN Rate Random Glucose 86 MG/DL Calcium Level 8.5 MG/DL Magnesium Level 2.2 MG/DL Total Bilirubin 0.9 MG/DL Aspartate Amino Transf 24 U/L (AST/SGOT) Alanine Aminotransferase 22 U/L (ALT/SGPT) Alkaline Phosphatase 85 U/L Total Creatine Kinase 62 U/L Troponin I 0.03 NG/ML Total Protein 6.4 GM/DL Albumin 3.3 GM/DL Assessment and Plan Problem List: (1) STEMI (ST elevation myocardial infarction) Assessment and Plan: Continue supportive care PPM on Thursday with Dr. Brown (2) CAD (coronary artery disease) (3) Atrial fibrillation (4) Symptomatic bradycardia (5) Sick sinus syndrome Sandeep Lakhani MD Jul 12, 2016 07:19
[2016-07-12] MEDS: CLOPIDOGREL 75 MG TAB PO SCH (09:00)
[2016-07-12] MEDS: ASPIRIN EC 81 MG TABEC PO SCH (09:00)
[2016-07-12] MEDS: PANTOPRAZOLE SOD 40 MG DELAYED RELEASE TAB PO SCH (09:00)
[2016-07-12] MEDS: SODIUM CHLORIDE 0.9% FLUSH 10 ML FLUSH IV FLUSH SCH ×2 (09:01→20:42)
[2016-07-12] MEDS: APIXABAN 5 MG TABLET PO SCH (09:02)
--- NOTE | 2016-07-12 16:31 | HHI.PR ---
Subjective Remarks f/u for tachy-jewels syndrome. patient stated no episode of dizziness since he was last seen by me. Denied any SOB, CP, palpitations. No complaints. Objective Vitals Vital Signs Date Time Temp Pulse Resp B/P Pulse Ox O2 Delivery O2 Flow Rate FiO2 07/12/16 15:01 98.0 55 16 118/72 96 07/12/16 15:01 68 07/12/16 14:00 58 07/12/16 13:00 62 07/12/16 12:01 66 07/12/16 11:15 98.0 68 16 109/63 95 07/12/16 11:00 70 07/12/16 10:00 68 07/12/16 09:00 72 07/12/16 08:45 98.0 56 18 124/85 97 07/12/16 08:00 54 07/12/16 07:00 51 07/12/16 06:00 40 07/12/16 04:53 98.1 52 16 112/68 99 07/12/16 04:00 46 07/12/16 03:00 51 07/12/16 02:00 50 07/12/16 01:00 48 07/12/16 00:16 98.1 47 16 106/71 98 07/12/16 00:00 50 07/11/16 23:00 50 07/11/16 22:00 51 07/11/16 21:35 97.7 62 16 130/83 97 07/11/16 20:00 49 18 120/64 96 Room Air I/O 07/11/16 07/11/16 07/11/16 07/12/16 07/12/16 07/12/16 07:00 15:00 23:00 07:00 15:00 23:00 Output Total 700 ml 500 ml Balance -700 ml -500 ml Output Urine Total 700 ml 500 ml Result Diagram: 07/12/16 0600 07/11/16 1100 Objective Remarks GENERAL: in NAD CARDIOVASCULAR: Regular rate and rhythm without murmurs, gallops, or rubs. RESPIRATORY: Breath sounds equal bilaterally. No accessory muscle use. GASTROINTESTINAL: Abdomen soft, non-tender, nondistended. MUSCULOSKELETAL: No cyanosis, or edema. BACK: Nontender without obvious deformity. No CVA tenderness. Medications and IVs Current Medications Sodium Chloride 2 ml 2 ml UNSCH PRN IVF FLUSH AFTER USING IV ACCESS; Start at 09:45 Sodium Chloride (NS 1000 ml Inj) 1,000 ml @ 100 mls/hr Q10H ONCE IV Last administered on 07/11/16 10:18; Start 07/11/16 at 09:45; Stop 07/11/16 at 19:44 ; Status DC Sodium Chloride (NS Flush) 2 ml UNSCH PRN IV FLUSH FLUSH AFTER USING IV ACCESS ; Start 07/11/16 at 13:00 Sodium Chloride (NS Flush) 2 ml BID IV FLUSH Last administered on 07/12/16 09: 01; Start 07/11/16 at 21:00 Acetaminophen (Tylenol) 650 mg Q4H PRN PO TEMP > 100.4; Start 07/11/16 at 13:00 Ondansetron HCl (Zofran Inj) 4 mg Q6H PRN IVP NAUSEA OR VOMITING; Start at 13:00 Naloxone HCl (Narcan Inj) 0.4 mg UNSCH PRN IV SEE LABEL COMMENTS; Start at 13:00 Alprazolam (Xanax) 0.25 mg Q6HR PRN PO ANXIETY; Start 07/11/16 at 13:00 Apixaban (Eliquis) 5 mg BID PO Last administered on 07/12/16 09:02; Start at 21:00; Status Hold Aspirin (Ecotrin Ec) 81 mg DAILY PO Last administered on 07/12/16 09:00; Start 07/12/16 at 09:00 Atorvastatin Calcium (Lipitor) 80 mg HS PO Last administered on 07/11/16 20:59 ; Start 07/11/16 at 21:00 Pantoprazole Sodium (Protonix) 40 mg DAILY PO Last administered on 07/12/16 09 :00; Start 07/12/16 at 09:00 Clopidogrel Bisulfate (Plavix) 75 mg DAILY PO Last administered on 07/12/16 09 :00; Start 07/12/16 at 09:00 A/P Assessment and Plan 71-year-old male with a recent STEMI, bradycardia and atrial fibrillation Symptomatic tachy-jewels syndrome. -Dr. Swift Cardiograph Operator consulted needs pacemaker. -Dr. Brown place to put pacemaker in on Thursday. recommend holding eliquis for 36 hours so will hold eliquis. Atrial fibrillation -Due to bradycardia Cardizem and metoprolol held. -Eliquis hold. CAD/recent STEMI -continue with home regimen. metoprolol and cardizem held. GERD/Anxiety -Continue with home regimen. Incisional hernia -Most likely hematoma at the site. -Patient had an ultrasound done with his surgeon. -Will try to obtain ultrasound. -Continue to monitor clinically. DVT prophylaxis -Eliquis held. Discharge Planning patient scheduled for pacemaker on Thursday. Irma Bradley MD Jul 12, 2016 16:31
[2016-07-12] MEDS: ATORVASTATIN 80 MG TAB PO SCH (20:41)
[2016-07-12] MEDS: ALPRAZolam 0.25 MG TAB PO PRN (22:57)
[2016-07-13] VITALS (27 sets, daily range): BP systolic 103–121; BP diastolic 50–82; PULSE 48–122; RESP 16–18; TEMP 97.5–98.2; O2SAT 96–98
[2016-07-13 07:25] LABS: MEAN CELL VOLUME 84.6 FL (80.0-100.0); MEAN CORPUSCULAR HGB CONC 33.1 % (32.0-36.0); PLATELET COUNT 370 TH/MM3 (150-450); RED BLOOD COUNT 5.43 MIL/MM3 (4.50-5.90); RED CELL DISTRIBUTION WIDTH 14.2 % (11.6-17.2); REVIEW FLAG FINAL; WHITE BLOOD COUNT 8.2 TH/MM3 (4.0-11.0)
[2016-07-13 07:27] LABS: BICARBONATE 21.7 MEQ/L (21.0-32.0); POTASSIUM 3.9 MEQ/L (3.5-5.1)
--- NOTE | 2016-07-13 08:24 | HHI.PR ---
Subjective Remarks Pt feeling well. Denies any lightheadedness or dizziness. Denies any SOB. No acute chest pain Objective Vitals Vital Signs Date Time Temp Pulse Resp B/P Pulse Ox O2 Delivery O2 Flow Rate FiO2 07/13/16 06:00 118 07/13/16 05:00 116 07/13/16 04:00 106 07/13/16 03:54 98.1 109 16 114/69 97 07/13/16 03:00 114 07/13/16 02:00 122 07/13/16 01:00 114 07/13/16 00:00 114 07/12/16 23:27 97.9 108 16 115/79 98 07/12/16 23:00 114 07/12/16 22:00 124 07/12/16 21:00 127 07/12/16 20:56 97.9 117 16 119/86 97 07/12/16 20:00 117 07/12/16 19:00 111 07/12/16 18:00 127 07/12/16 17:00 58 07/12/16 16:00 64 07/12/16 15:01 98.0 55 16 118/72 96 07/12/16 15:01 68 07/12/16 14:00 58 07/12/16 13:00 62 07/12/16 12:01 66 07/12/16 11:15 98.0 68 16 109/63 95 07/12/16 11:00 70 07/12/16 10:00 68 07/12/16 09:00 72 07/12/16 08:45 98.0 56 18 124/85 97 I/O 07/12/16 07/12/16 07/12/16 07/13/16 07/13/16 07/13/16 07:00 15:00 23:00 07:00 15:00 23:00 Intake Total 600 ml 690 ml Output Total 2 ml Balance 598 ml 690 ml Intake Oral 600 ml 690 ml Output Urine Total 2 ml # Voids 3 # Bowel Movements 2 Result Diagram: 07/13/1652107/13/16521 Imaging Last Impressions Chest X-Ray 07/11/16 0945 Signed Impressions: Service Date/Time: Monday, July 11, 2016 09:57 - CONCLUSION: No acute disease. Umesh Verdugo MD Objective Remarks GENERAL: in NAD CARDIOVASCULAR: Regular rate and rhythm without murmurs RESPIRATORY: Breath sounds equal bilaterally. No accessory muscle use. GASTROINTESTINAL: Abdomen soft, non-tender, nondistended. MUSCULOSKELETAL: moves extremities A/P Assessment and Plan Symptomatic tachy-jewels syndrome. -Dr. Swift [employer] Operator consulted needs pacemaker. -Dr. Brown evaluated the pt and agrees, pt to be off eliquis x 36 hrs prior. NPO after midnight. Scheduled for pacemaker on Thursday. Atrial fibrillation -Due to bradycardia Cardizem and metoprolol held. -Eliquis hold. CAD/recent STEMI -continue with home regimen. metoprolol and cardizem held. GERD/Anxiety -Continue with home regimen. Incisional hernia -Most likely hematoma at the site, and it is resolving. some mild ecchymosis noted near umbilicus. non painful -Continue to monitor clinically. DVT prophylaxis -Eliquis held. Discharge Planning pacemaker on Thursday w Laurence Jett MD Jul 13, 2016 08:24
[2016-07-13] MEDS: SODIUM CHLORIDE 0.9% FLUSH 10 ML FLUSH IV FLUSH SCH ×2 (08:25→21:04)
[2016-07-13] MEDS: ASPIRIN EC 81 MG TABEC PO SCH (08:25)
[2016-07-13] MEDS: PANTOPRAZOLE SOD 40 MG DELAYED RELEASE TAB PO SCH (08:25)
[2016-07-13] MEDS: CLOPIDOGREL 75 MG TAB PO SCH (08:25)
--- NOTE | 2016-07-13 08:25 | PD.CARD.PN ---
Subjective Subjective Remarks no CV complaints Objective Vital Signs / I&O Vital Signs Date Time Temp Pulse Resp B/P Pulse Ox O2 Delivery O2 Flow Rate FiO2 07/13/16 06:00 118 07/13/16 05:00 116 07/13/16 04:00 106 07/13/16 03:54 98.1 109 16 114/69 97 07/13/16 03:00 114 07/13/16 02:00 122 07/13/16 01:00 114 07/13/16 00:00 114 07/12/16 23:27 97.9 108 16 115/79 98 07/12/16 23:00 114 07/12/16 22:00 124 07/12/16 21:00 127 07/12/16 20:56 97.9 117 16 119/86 97 07/12/16 20:00 117 07/12/16 19:00 111 07/12/16 18:00 127 07/12/16 17:00 58 07/12/16 16:00 64 07/12/16 15:01 98.0 55 16 118/72 96 07/12/16 15:01 68 07/12/16 14:00 58 07/12/16 13:00 62 07/12/16 12:01 66 07/12/16 11:15 98.0 68 16 109/63 95 07/12/16 11:00 70 07/12/16 10:00 68 07/12/16 09:00 72 07/12/16 08:45 98.0 56 18 124/85 97 I/O 07/12/16 07/12/16 07/12/16 07/13/16 07/13/16 07/13/16 07:00 15:00 23:00 07:00 15:00 23:00 Intake Total 600 ml 690 ml Output Total 2 ml Balance 598 ml 690 ml Intake Oral 600 ml 690 ml Output Urine Total 2 ml # Voids 3 # Bowel Movements 2 Physical Exam GENERAL: Well-nourished, well-developed patient. SKIN: Warm and dry. HEAD: Normocephalic. EYES: No scleral icterus. No injection or drainage. NECK: Supple, trachea midline. No JVD or lymphadenopathy. CARDIOVASCULAR: Regular rate and rhythm without murmurs, gallops, or rubs. RESPIRATORY: Breath sounds equal bilaterally. No accessory muscle use. GASTROINTESTINAL: Abdomen soft, non-tender, nondistended. EXTREMITIES: No cyanosis, or edema. NEUROLOGICAL: Awake, alert, and oriented x 3. Non-focal. Laboratory Laboratory Tests Test 07/13/16 05:22 White Blood Count 8.2 TH/MM3 Red Blood Count 5.43 MIL/MM3 Hemoglobin 15.2 GM/DL Hematocrit 46.0 % Mean Corpuscular Volume 84.6 FL Mean Corpuscular Hemoglobin 28.0 PG Mean Corpuscular Hemoglobin 33.1 % Concent Red Cell Distribution Width 14.2 % Platelet Count 370 TH/MM3 Mean Platelet Volume 8.1 FL Sodium Level 143 MEQ/L Potassium Level 3.9 MEQ/L Chloride Level 112 MEQ/L Carbon Dioxide Level 21.7 MEQ/L Anion Gap 9 MEQ/L Blood Urea Nitrogen 18 MG/DL Creatinine 1.11 MG/DL Estimat Glomerular Filtration 65 ML/MIN Rate Random Glucose 97 MG/DL Calcium Level 8.9 MG/DL Assessment and Plan Problem List: (1) STEMI (ST elevation myocardial infarction) Assessment and Plan: Continue supportive care PPM on Thursday with Dr. Brown Keep NPO after midnight (2) CAD (coronary artery disease) (3) Atrial fibrillation (4) Symptomatic bradycardia (5) Sick sinus syndrome Sandeep Lakhani MD Jul 13, 2016 08:25
[2016-07-13] MEDS: ALPRAZolam 0.25 MG TAB PO PRN (21:04)
[2016-07-13] MEDS: ATORVASTATIN 80 MG TAB PO SCH (21:04)
[2016-07-14] VITALS (29 sets, daily range): BP systolic 98–121; BP diastolic 60–94; PULSE 50–141; RESP 16–18; TEMP 97.9–98.6; O2SAT 95–98
[2016-07-14] MEDS: ALPRAZolam 0.25 MG TAB PO PRN ×2 (02:58→21:30)
--- NOTE | 2016-07-14 08:14 | HHI.PR ---
Subjective Remarks Patient tells me he feels well. Denies any chest pain, shortness of breath, palpitations, nausea vomiting. Patient doesn't know at what time he'll be going for his pacemaker. Objective Vitals Vital Signs Date Time Temp Pulse Resp B/P Pulse Ox O2 Delivery O2 Flow Rate FiO2 07/14/16 07:46 97.9 122 18 121/70 96 07/14/16 07:30 124 07/14/16 05:00 120 07/14/16 04:00 130 07/14/16 03:30 98.6 118 16 114/94 96 07/14/16 03:00 115 07/14/16 02:00 114 07/14/16 01:00 126 07/14/16 00:45 98.1 116 16 114/69 97 07/14/16 00:00 50 07/13/16 23:00 48 07/13/16 22:00 54 07/13/16 21:00 60 07/13/16 20:01 98.2 76 18 121/82 98 07/13/16 20:00 64 07/13/16 19:00 54 07/13/16 18:30 69 07/13/16 17:16 69 07/13/16 16:00 86 07/13/16 15:00 76 07/13/16 15:00 97.7 79 18 103/73 96 07/13/16 14:00 60 07/13/16 13:00 70 07/13/16 12:00 68 07/13/16 11:00 65 07/13/16 11:00 97.7 68 18 104/50 97 07/13/16 10:00 60 07/13/16 09:00 70 07/13/16 08:35 97.5 89 18 108/78 98 I/O 07/13/16 07/13/16 07/13/16 07/14/16 07/14/16 07/14/16 07:00 15:00 23:00 07:00 15:00 23:00 Intake Total 690 ml 1100 ml 240 ml Output Total 800 ml 600 ml Balance 690 ml 300 ml -360 ml Intake Oral 690 ml 1100 ml 240 ml Output Urine Total 800 ml 600 ml # Voids 3 # Bowel Movements 1 0 Result Diagram: 07/13/1652107/13/16521 Imaging Last Impressions Chest X-Ray 07/11/16 0945 Signed Impressions: Service Date/Time: Monday, July 11, 2016 09:57 - CONCLUSION: No acute disease. Umesh Verdugo MD Objective Remarks GENERAL: in NAD CARDIOVASCULAR: Irregularly irregular without murmurs RESPIRATORY: Breath sounds equal bilaterally. No accessory muscle use. GASTROINTESTINAL: Abdomen soft, non-tender, nondistended. MUSCULOSKELETAL: moves extremities A/P Assessment and Plan Symptomatic tachy-jewels syndrome. -Dr. Swift [employer]ke Be[employer] Machine Operator consulted needs pacemaker. -Dr. Brown evaluated the pt and agrees, pt to be off eliquis x 36 hrs prior. Currently nothing by mouth and is scheduled for pacemaker today. Atrial fibrillation -Due to bradycardia Cardizem and metoprolol held. This morning, patient is tachycardic. We'll notify cardiology. -Eliquis hold. CAD/recent STEMI -continue with home regimen. metoprolol and cardizem held. GERD/Anxiety -Continue with home regimen. Incisional hernia -Most likely hematoma at the site, and it is resolving. some mild ecchymosis noted near umbilicus. non painful -Continue to monitor clinically. DVT prophylaxis -Eliquis held. Discharge Planning pacemaker today w Laurence Jett MD July 14, 2016 08:14
[2016-07-14 09:34] LABS: INTERNATIONAL NORMALIZED RATIO 1.1 RATIO; PROTHROMBIN TIME - PATIENT 12.1 SEC (9.8-11.6)
[2016-07-14] MEDS: PANTOPRAZOLE SOD 40 MG DELAYED RELEASE TAB PO SCH (09:43)
[2016-07-14] MEDS: ASPIRIN EC 81 MG TABEC PO SCH (09:43)
[2016-07-14] MEDS: CLOPIDOGREL 75 MG TAB PO SCH (09:43)
[2016-07-14] MEDS: SODIUM CHLORIDE 0.9% FLUSH 10 ML FLUSH IV FLUSH SCH ×2 (09:46→21:00)
--- NOTE | 2016-07-14 09:50 | PD.CARD.PN ---
Subjective Subjective Remarks No chest pain, no shortness of breath, lightheaded with Afib in the 150s and above Telemetry: Mostly AFib with RVR, does have periods of sinus rhythm but bradycardic in the 40s Objective Medications Current Medications Medications (Trade) Dose Ordered Sig/Kenia Route Start Time Stop Time Status Last Admin (NS Flush) 2 ml UNSCH PRN IVF 07/11/16 09:45 (NS Flush) 2 ml UNSCH PRN IV FLUSH 07/11/16 13:00 (NS Flush) 2 ml BID IV FLUSH 07/11/16 21:00 07/13/16 21:04 (Tylenol) 650 mg Q4H PRN PO 07/11/16 13:00 (Zofran Inj) 4 mg Q6H PRN IVP 07/11/16 13:00 (Narcan Inj) 0.4 mg UNSCH PRN IV 07/11/16 13:00 (Xanax) 0.25 mg Q6HR PRN PO 07/11/16 13:00 07/14/16 02:58 (Eliquis) 5 mg BID PO 07/11/16 21:00 Hold 07/12/16 09:02 (Ecotrin Ec) 81 mg DAILY PO 07/12/16 09:00 07/13/16 08:25 (Lipitor) 80 mg HS PO 07/11/16 21:00 07/13/16 21:04 (Protonix) 40 mg DAILY PO 07/12/16 09:00 07/13/16 08:25 (Plavix) 75 mg DAILY PO 07/12/16 09:00 07/13/16 08:25 Vital Signs / I&O Vital Signs Date Time Temp Pulse Resp B/P Pulse Ox O2 Delivery O2 Flow Rate FiO2 07/14/16 08:56 141 07/14/16 07:46 97.9 122 18 121/70 96 07/14/16 07:30 124 07/14/16 05:00 120 07/14/16 04:00 130 07/14/16 03:30 98.6 118 16 114/94 96 07/14/16 03:00 115 07/14/16 02:00 114 07/14/16 01:00 126 07/14/16 00:45 98.1 116 16 114/69 97 07/14/16 00:00 50 07/13/16 23:00 48 07/13/16 22:00 54 07/13/16 21:00 60 07/13/16 20:01 98.2 76 18 121/82 98 07/13/16 20:00 64 07/13/16 19:00 54 07/13/16 18:30 69 07/13/16 17:16 69 07/13/16 16:00 86 07/13/16 15:00 76 07/13/16 15:00 97.7 79 18 103/73 96 07/13/16 14:00 60 07/13/16 13:00 70 07/13/16 12:00 68 07/13/16 11:00 65 07/13/16 11:00 97.7 68 18 104/50 97 07/13/16 10:00 60 I/O 07/13/16 07/13/16 07/13/16 07/14/16 07/14/16 07/14/16 07:00 15:00 23:00 07:00 15:00 23:00 Intake Total 690 ml 1100 ml 240 ml Output Total 800 ml 600 ml Balance 690 ml 300 ml -360 ml Intake Oral 690 ml 1100 ml 240 ml Output Urine Total 800 ml 600 ml # Voids 3 # Bowel Movements 1 0 Physical Exam GENERAL: NAD, AAOx3 SKIN: Warm and dry. HEAD: Atraumatic. Normocephalic. EYES: Pupils equal and round. No scleral icterus. No injection or drainage. ENT: No nasal bleeding or discharge. Mucous membranes pink and moist. NECK: Trachea midline. No JVD. CARDIOVASCULAR: Irregularly irregular RESPIRATORY: No accessory muscle use. Clear to auscultation. Breath sounds equal bilaterally. GASTROINTESTINAL: Abdomen soft, non-tender, nondistended. Hepatic and splenic margins not palpable. MUSCULOSKELETAL: Extremities without clubbing, cyanosis, or edema. No obvious deformities. NEUROLOGICAL: Awake and alert. No obvious cranial nerve deficits. Motor grossly within normal limits. Five out of 5 muscle strength in the arms and legs. Normal speech. PSYCHIATRIC: Appropriate mood and affect; insight and judgment normal. Laboratory Laboratory Tests Test 07/14/16 08:25 Prothrombin Time 12.1 SEC Prothromb Time International 1.1 RATIO Ratio Assessment and Plan Problem List: (1) STEMI (ST elevation myocardial infarction) (2) CAD (coronary artery disease) (3) Atrial fibrillation (4) Symptomatic bradycardia (5) Sick sinus syndrome Assessment and Plan 1) Tachy-Jewels Syndrome, unable to control his Afib without him being sinus jewels with heart rates in the 35-45 range 2) Symptomatic with extremes of heart rates 3) Discussed with Dr. Brown, consideration of Afib ablation vs PPM 4) ASA/Plavix for recent STEMI s/p BMS to PLB 5) Will plan on discharging on ASA/Plavix/Kelvin Fuentes DO July 14, 2016 09:50
[2016-07-14] MEDS ORDERED: DILTIAZEM HCL 25 MG/5 ML VIAL IV PUSH ONE ×2 (10:00→10:01)
[2016-07-14] MEDS: DILTIAZEM INJ 125 MG in SODIUM CHLORIDE 0.9% INJ 100 ML IV SCH ×2 (10:57→23:51)
--- NOTE | 2016-07-14 12:24 | HHI.PR ---
Subjective Remarks Palpitation. Tired Objective Vital Signs Date Time Temp Pulse Resp B/P Pulse Ox O2 Delivery O2 Flow Rate FiO2 07/14/16 11:22 98.1 83 18 102/60 95 07/14/16 11:16 71 07/14/16 10:05 137 07/14/16 09:00 122 07/14/16 08:56 141 07/14/16 07:46 97.9 122 18 121/70 96 07/14/16 07:30 124 07/14/16 05:00 120 07/14/16 04:00 130 07/14/16 03:30 98.6 118 16 114/94 96 07/14/16 03:00 115 07/14/16 02:00 114 07/14/16 01:00 126 07/14/16 00:45 98.1 116 16 114/69 97 07/14/16 00:00 50 07/13/16 23:00 48 07/13/16 22:00 54 07/13/16 21:00 60 07/13/16 20:01 98.2 76 18 121/82 98 07/13/16 20:00 64 07/13/16 19:00 54 07/13/16 18:30 69 07/13/16 17:16 69 07/13/16 16:00 86 07/13/16 15:00 76 07/13/16 15:00 97.7 79 18 103/73 96 07/13/16 14:00 60 07/13/16 13:00 70 I/O 07/13/16 07/13/16 07/13/16 07/14/16 07/14/16 07/14/16 07:00 15:00 23:00 07:00 15:00 23:00 Intake Total 690 ml 1100 ml 240 ml Output Total 800 ml 600 ml Balance 690 ml 300 ml -360 ml Intake Oral 690 ml 1100 ml 240 ml Output Urine Total 800 ml 600 ml # Voids 3 # Bowel Movements 1 0 Result Diagram: 07/13/1652107/13/16521 Imaging Alert, fully oriented, in bed Lungs: ventilated Heart: S1, S2 irregular, tachycardia Abdomen: soft, no mass Ext: No edema Last Impressions Chest X-Ray 07/11/16 0945 Signed Impressions: Service Date/Time: Monday, July 11, 2016 09:57 - CONCLUSION: No acute disease. Umesh Verdugo MD Current Medications Medications (Trade) Dose Ordered Sig/Kenia Route Start Time Stop Time Status Last Admin (NS Flush) 2 ml UNSCH PRN IVF 07/11/16 09:45 (NS Flush) 2 ml UNSCH PRN IV FLUSH 07/11/16 13:00 (NS Flush) 2 ml BID IV FLUSH 07/11/16 21:00 07/14/16 09:46 (Tylenol) 650 mg Q4H PRN PO 07/11/16 13:00 (Zofran Inj) 4 mg Q6H PRN IVP 07/11/16 13:00 (Narcan Inj) 0.4 mg UNSCH PRN IV 07/11/16 13:00 (Xanax) 0.25 mg Q6HR PRN PO 07/11/16 13:00 07/14/16 02:58 (Eliquis) 5 mg BID PO 07/11/16 21:00 Hold 07/12/16 09:02 (Ecotrin Ec) 81 mg DAILY PO 07/12/16 09:00 07/14/16 09:43 (Lipitor) 80 mg HS PO 07/11/16 21:00 07/13/16 21:04 (Protonix) 40 mg DAILY PO 07/12/16 09:00 07/14/16 09:43 Clopidogrel Bisulfate 75 mg 75 mg DAILY PO 07/12/16 09:00 07/14/16 09:43 (Cardizem Inj/NS Inj) 125 ml @ 0 mls/hr TITRATE IV 07/14/16 11:00 07/14/16 10:57 Assessment and Plan Problem List: (1) Atrial fibrillation Status: Acute Plan: In atrial fibrillation. HR difficult to control. Mahesh observed also Cardizem IV will be initiated EPS and ablation discussed. The risks, the nature and benefits discussed. Patient and understand and agree to proceed (2) Symptomatic bradycardia Status: Acute Plan: HR high now If after controlling the afib there is still symptomatic mahesh then pacing support will be considered. Kait Brown MD July 14, 2016 12:24
[2016-07-14] MEDS: ENOXAPARIN SODIUM 80 MG/0.8 ML SYRINGE SQ SCH (15:18)
[2016-07-14] MEDS: ATORVASTATIN 80 MG TAB PO SCH (21:29)
[2016-07-15] VITALS (23 sets, daily range): BP systolic 89–114; BP diastolic 62–71; PULSE 50–130; RESP 16–20; TEMP 97.5–98.6; O2SAT 93–99
[2016-07-15] MEDS: ENOXAPARIN SODIUM 80 MG/0.8 ML SYRINGE SQ SCH (01:31)
[2016-07-15] MEDS: CLOPIDOGREL 75 MG TAB PO SCH (08:50)
[2016-07-15] MEDS: PANTOPRAZOLE SOD 40 MG DELAYED RELEASE TAB PO SCH (08:50)
[2016-07-15] MEDS: ALPRAZolam 0.25 MG TAB PO PRN (08:51)
[2016-07-15] MEDS: ASPIRIN EC 81 MG TABEC PO SCH (08:51)
[2016-07-15] MEDS: SODIUM CHLORIDE 0.9% FLUSH 10 ML FLUSH IV FLUSH SCH ×2 (08:51→20:37)
--- NOTE | 2016-07-15 11:06 | HHI.PR ---
Subjective Remarks Patient reports that he is feeling OK. WILFREDO RN. Still having tachy jewels issues overnight. On Cardizem drip. Plan for ablation today. Patient denies shortness of breath or chest pain. Objective Vitals Vital Signs Date Time Temp Pulse Resp B/P Pulse Ox O2 Delivery O2 Flow Rate FiO2 07/15/16 10:00 100 07/15/16 09:00 110 07/15/16 08:00 102 07/15/16 07:00 98.6 65 18 114/62 98 07/15/16 07:00 101 07/15/16 06:14 108 07/15/16 05:13 94 07/15/16 04:32 50 07/15/16 03:40 98.4 103 17 114/66 95 07/15/16 03:00 88 07/15/16 02:21 103 07/15/16 01:05 88 07/15/16 00:00 82 07/14/16 23:25 98.6 92 17 112/83 98 07/14/16 23:25 85 07/14/16 22:32 70 07/14/16 21:00 70 07/14/16 20:00 88 07/14/16 19:55 97.9 89 18 98/72 96 07/14/16 19:03 88 07/14/16 18:30 117 07/14/16 17:02 97 07/14/16 16:29 85 07/14/16 15:17 98.1 105 18 113/71 96 07/14/16 15:10 102 07/14/16 14:00 110 07/14/16 13:34 107 07/14/16 12:24 102 07/14/16 11:22 98.1 83 18 102/60 95 07/14/16 11:16 71 I/O 07/14/16 07/14/16 07/14/16 07/15/16 07/15/16 07/15/16 07:00 15:00 23:00 07:00 15:00 23:00 Intake Total 240 ml 545 ml 1026 ml Output Total 600 ml 500 ml 1075 ml Balance -360 ml 45 ml -49 ml Intake Oral 240 ml 480 ml 960 ml IV Total 65 ml 66 ml Output Urine Total 600 ml 500 ml 1075 ml # Voids 2 # Bowel Movements 0 1 0 Result Diagram: 07/13/16 0522 07/13/16 0522 Imaging Last Impressions Chest X-Ray 07/11/16 0945 Signed Impressions: Service Date/Time: Monday, July 11, 2016 09:57 - CONCLUSION: No acute disease. Umesh Verdugo MD Objective Remarks GENERAL: This is a well-nourished, well-developed patient, in no apparent distress. CARDIOVASCULAR: Rate in the low 100 and irregular rhythm without murmurs, gallops, or rubs. RESPIRATORY: Good respiratory efforts. Breath sounds equal and clear to auscultation bilaterally. GASTROINTESTINAL: Abdomen soft, non-tender, non-distended. Normal active bowel sounds MUSCULOSKELETAL: Extremities without cyanosis, or edema. NEURO: Alert & Oriented x4 to person, place, time, situation. Moves all ext x4 PSYCH: Appropriate mood and affect. A/P Assessment and Plan 71-year-old male with: Symptomatic tachy-jewels syndrome. -Dr. Swift Pharmacy Order Entry Technician following. -Dr. Brown, EP evaluated the pt. has been having A. fib with RVR. Plan for ablation today per Dr. Brown. Atrial fibrillation - On Cardizem drip. Plan for ablation today. -Eliquis hold. Plan to resume Aspirin, Eliquis when no further procedures anticipated per discussion with Dr. Swift. CAD/recent STEMI -continue with home regimen. Plan to continue ASA/Plavix for recent STEMI s/p BMS per cardiology. GERD/Anxiety -Continue with home regimen. Incisional hernia -Most likely hematoma at the site, and it is resolving. some mild ecchymosis noted near umbilicus. non painful -Continue to monitor clinically. DVT prophylaxis -Eliquis held. Discharge Planning Continue inpatient care. Amrik Chaves MD July 15, 2016 11:06
--- NOTE | 2016-07-15 14:01 | PD.CARD.PN ---
Subjective Subjective Remarks Patient was seen this morning Over night heart rates somewhat controlled, but with bradycardia so Cardizem decreased to 2.5mg/hr Objective Medications Current Medications Medications (Trade) Dose Ordered Sig/Kenia Route Start Time Stop Time Status Last Admin (NS Flush) 2 ml UNSCH PRN IVF 07/11/16 09:45 (NS Flush) 2 ml UNSCH PRN IV FLUSH 07/11/16 13:00 (NS Flush) 2 ml BID IV FLUSH 07/11/16 21:00 07/15/16 08:51 (Tylenol) 650 mg Q4H PRN PO 07/11/16 13:00 (Zofran Inj) 4 mg Q6H PRN IVP 07/11/16 13:00 (Narcan Inj) 0.4 mg UNSCH PRN IV 07/11/16 13:00 (Xanax) 0.25 mg Q6HR PRN PO 07/11/16 13:00 07/15/16 08:51 (Eliquis) 5 mg BID PO 07/11/16 21:00 Hold 07/12/16 09:02 (Ecotrin Ec) 81 mg DAILY PO 07/12/16 09:00 07/15/16 08:51 (Lipitor) 80 mg HS PO 07/11/16 21:00 07/14/16 21:29 (Protonix) 40 mg DAILY PO 07/12/16 09:00 07/15/16 08:50 Clopidogrel Bisulfate 75 mg 75 mg DAILY PO 07/12/16 09:00 07/15/16 08:50 (Cardizem Inj/NS Inj) 125 ml @ 0 mls/hr TITRATE IV 07/14/16 11:00 07/14/16 23:51 Vital Signs / I&O Vital Signs Date Time Temp Pulse Resp B/P Pulse Ox O2 Delivery O2 Flow Rate FiO2 07/15/16 13:00 103 07/15/16 12:00 100 07/15/16 11:00 130 07/15/16 11:00 98.1 93 20 100/71 95 07/15/16 10:00 100 07/15/16 09:00 110 07/15/16 08:00 102 07/15/16 07:00 98.6 65 18 114/62 98 07/15/16 07:00 101 07/15/16 06:14 108 07/15/16 05:13 94 07/15/16 04:32 50 07/15/16 03:40 98.4 103 17 114/66 95 07/15/16 03:00 88 07/15/16 02:21 103 07/15/16 01:05 88 07/15/16 00:00 82 07/14/16 23:25 98.6 92 17 112/83 98 07/14/16 23:25 85 07/14/16 22:32 70 07/14/16 21:00 70 07/14/16 20:00 88 07/14/16 19:55 97.9 89 18 98/72 96 07/14/16 19:03 88 07/14/16 18:30 117 07/14/16 17:02 97 07/14/16 16:29 85 07/14/16 15:17 98.1 105 18 113/71 96 07/14/16 15:10 102 07/14/16 14:00 110 I/O 07/14/16 07/14/16 07/14/16 07/15/16 07/15/16 07/15/16 07:00 15:00 23:00 07:00 15:00 23:00 Intake Total 240 ml 545 ml 1026 ml Output Total 600 ml 500 ml 1075 ml Balance -360 ml 45 ml -49 ml Intake Oral 240 ml 480 ml 960 ml IV Total 65 ml 66 ml Output Urine Total 600 ml 500 ml 1075 ml # Voids 2 # Bowel Movements 0 1 0 Physical Exam GENERAL: NAD, AAOx3 SKIN: Warm and dry. HEAD: Atraumatic. Normocephalic. EYES: Pupils equal and round. No scleral icterus. No injection or drainage. ENT: No nasal bleeding or discharge. Mucous membranes pink and moist. NECK: Trachea midline. No JVD. CARDIOVASCULAR: Irregularly irregular RESPIRATORY: No accessory muscle use. Clear to auscultation. Breath sounds equal bilaterally. GASTROINTESTINAL: Abdomen soft, non-tender, nondistended. Hepatic and splenic margins not palpable. MUSCULOSKELETAL: Extremities without clubbing, cyanosis, or edema. No obvious deformities. NEUROLOGICAL: Awake and alert. No obvious cranial nerve deficits. Motor grossly within normal limits. Five out of 5 muscle strength in the arms and legs. Normal speech. PSYCHIATRIC: Appropriate mood and affect; insight and judgment normal. Assessment and Plan Problem List: (1) STEMI (ST elevation myocardial infarction) (2) CAD (coronary artery disease) (3) Atrial fibrillation (4) Symptomatic bradycardia (5) Sick sinus syndrome Assessment and Plan 1) Tachy-Jewels Syndrome, unable to control his Afib without him being sinus jewels with heart rates in the 35-45 range 2) Symptomatic with extremes of heart rates both bradycardic and tachycardic 3) Discussed with Dr. Brown, consideration of Afib ablation today and if still jewels may need PPM 4) ASA/Plavix for recent STEMI s/p BMS to PLB 5) Will plan on discharging on ASA/Plavix/Kelvin Fuentes DO July 15, 2016 14:01
[2016-07-15] MEDS ORDERED: PROPOFOL 200 MG/20 ML AMP OTHER ONE (14:22)
[2016-07-15] MEDS ORDERED: HEPARIN SODIUM - IV 10,000 UNITS/10 ML VIAL ONE (14:24)
[2016-07-15] MEDS ORDERED: PROTAMINE SULFATE 50 MG/5 ML VIAL ONE (14:24)
[2016-07-15] MEDS ORDERED: fentaNYL CITRATE 250 MCG/5 ML AMP ONE (14:24)
[2016-07-15] MEDS ORDERED: HEPARIN-D5W INJ 250 ML ONE (14:24)
[2016-07-15] MEDS ORDERED: ISOPROTERENOL HCL 1 MG/5 ML AMP ONE (14:36)
[2016-07-15] MEDS ORDERED: HEPARIN-NS/PF INJ 500 ML ONE (14:37)
[2016-07-15] MEDS ORDERED: LEVOFLOXACIN 500 MG PREMIX INJ 100 ML IV ONE (14:45)
--- NOTE | 2016-07-15 17:01 | PD.CARD ---
Atrial Fibrillation Ablation PROCEDURE DATE: July 15, 2016 PROCEDURES PERFORMED: 1. Electrophysiology study on Isuprel infusion 2. CS cannulation 3. 3-D mapping 4. Transseptal approach 5. Right and left heart catheterization 6. Intracardiac echo 7. Radiofrequency ablation of atrial fibrillation 8. Pulmonary vein isolation 9. Posterior wall ablation 10. Mitral line creation 11. Anterior wall ablation INDICATIONS FOR THE PROCEDURE Mr. Anderson is a 71-year-old male with atrial fibrillation very symptomatic despite multiple medications, recent [place], on anticoagulation , severe tachy jewels referred for electrophysiology study and ablation. The risks, the nature and the benefits of the procedure were clearly stated to him. The risks include pneumothorax, cardiac perforation, stroke, need for open heart surgery and even . The patient understood and agreed to proceed. DESCRIPTION OF THE PROCEDURE IN DETAIL After written informed consent was obtained prior to esophageal echocardiogram, the patient was kept on the table where he was prepped and draped in the usual sterile fashion. Conscious sedation was initiated and maintained throughout the procedure by the anesthesiologist. Once sedation was verified, the right and left inguinal areas were anesthetized with 2% Xylocaine. Patient at that point converted into sinus rhythm. Cardizem IV was DC. Using modified Seldinger technique, the left femoral vein was cannulated on three occasions, three guidewires were advanced. Over the wire a 6, 7 and a 10-Swazi Hemaquet were advanced. Then the left femoral artery was cannulated on one occasion, one guidewire was advanced. Over the wire a 4-Swazi Hemaquet was advanced. Then the right femoral vein was cannulated on one occasion, one guidewire was advanced. Over the wire a 8-Swazi Hemaquet was advanced. Then under fluoroscopic guidance through the 6 and 7-Swazi Hemaquet, two 5-Swazi Anirudh curved quadripolar electrophysiology catheters were advanced and placed around the His as well as coronary sinus. Basic interval was measured. The patient was in sinus rhythm. Through the 10-Swazi Hemaquet, a [employer] AcuNav intracardiac echo catheter was advanced and placed at the right atrium. Multiple view was obtained. There is no pericardial effusion, pulmonary vein was seen, atrial septal was visualized. Then the 8-Swazi Hemaquet in the right femoral vein was exchanged for AgilMadeiraMadeira transseptal sheath that was placed all the way to the superior vena cava. Through the sheath a Martín needle was advanced, then the sheath, the dilator and the needle were progressed until foci engaged. Once engaged, the needle was advanced. RF was delivered for 2 seconds. I was able to cross into the left atrium. Once the needle crossed, the dilator was advanced. Once the dilator crossed, the sheath was advanced. Once the sheath crossed, the dilator and the needle were removed. At this point I did flood the system and fluid movement was seen in the left atrium the indicates the sheath is in good position. The patient already received 10,000 units of heparin. The goal is to keep an ACT around 350 during ablation. Then through the sheath a [employer]. Dangelo 20 pulse circumferential catheter was advanced. Using Cellmax endocardial solution mapping system, a two-dimensional configuration of the left atrium was obtained. Points were taken at the left superior and inferior veins, right superior and inferior veins, mitral valve, and appendages. Then through the sheath a St. Dangelo TactiCath 65cm 3.5mm irrigated tipped mapping and radiofrequency ablation catheter was advanced. Esophageal probe was placed temperature monitoring during ablation. When it increased to 0.5 degrees Celsius above baseline, I moved to a different area of the atrium. First I did isolate the left superior and inferior vein. Sandrita was ablated. A naknek was made around both veins. Posterior was ablated. Then the right superior and inferior veins were isolated. I did remap the atrium. There is no significant signal in the veins. At this point I decided to proceed with cardioversion. I did advance the circumferential catheter again into the vein. There was no signal into the vein, pacing from the vein showed no conduction to the atrium. Isuprel infusion was initiated at 10 mcg for 15 minutes. No tachyarrhythmia was induced, post Isuprel no tachyarrhythmia was induced. At that point the procedure was complete. All catheters were removed, atrial septal sheath was exchanged for 9-Swazi Hemaquet , intracardiac echo showed no pericardial effusion. There is still good flow in the pulmonary vein. The patient is going to be transferred to the recovery room. No incident report. The patient tolerated the procedure. Blood loss was minimal. FINDINGS 1. Electrocardiogram: At baseline the patient was in atrial fibrillation then converted to sinus rhythm. , post procedure the patient was in sinus rhythm. 2. Basic interval: Base cycle length was around 480ms. Post ablation she was around 980 milliseconds. AH at 70 and HV at 48 milliseconds. 3. Tachyarrhythmia: Atrial fibrillation was mapped and ablated.. The ablation was successful. CONCLUSION Successful electrophysiology study, mapping, radiofrequency ablation of atrial fibrillation, pulmonary vein isolation, posterior ablation, mitral line creation, Anterior wall ablation. COMMENTS AND RECOMMENDATIONS The patient is going to be transferred to the telemetry unit. Will be observed and when stable can be discharged home. Kait Brown MD July 15, 2016 17:01
--- NOTE | 2016-07-15 17:04 | CATHPROC ---
[facility] HIS Report Study Information Study Number Admission Scheduled Start Study Start [id number] 07/11/2016 07/15/2016 Jul 15 2016 12:59PM Referring Institution Admit Source Facility Department 1 Other [facility] - Debug Technician Physician and Clinical Staff Initial Kait Russell Body Joiner Lamar Rosenbaum RCIS Other Anesthesia, SIMULATION TECHNICIAN Recorder Sheri Jama,RN Scrub Vipin Greco,RT(R) Procedures Performed Procedure Location (Site) Vessel Name Ablation Procedure ICE CATHETER INSERT RA Atruim RF Ablation LT. ATRIUM LT. ATRIUM Equipment Time A Operator Description Size Mfg Part Number Used/Scraped NEEDLE, TRANSSEPTAL NRG 98 15:23 [facility] [id number] Used C1 [employer]/ EP 15:23 KIT, TRANSDUCER / AFIB [id number] Used PACER COVER, TRANSDUCER CABLE 15:23 [employer] [id number] Used ACUNAV 15:23 CORDIS/PACER SHEATH, FR10 HELENA 11CM FR 10 [id number] Used 15:23 CORDIS/PACER SHEATH, FR9 HELENA 11CM FR 9 [id number] Used 15:51 CORDIS/PACER SHEATH, FR9 HELENA 11CM FR 9 [id number] Used 15:23 [employer] PACK, CCL CUSTOM * [id number] Used 15:23 [employer] PACER CRUZ, LIMB * [id number] Used [id number] 15:23 [employer] MEDICAL SHEATH, FR4.5 PRELUDE 11CM FR 4.5 Used [id number] 15:22 NAMIC TUBING, HIGH PRESSURE 20" 20" [id number] Used 15:06 NAMIC TUBING, HIGH PRESSURE 48" 48" [id number] Used 15:23 NAMIC TUBING, HIGH PRESSURE 48" 48" [id number] Used 15:23 NAMIC TUBING, HIGH PRESSURE 48" 48" [id number] Used 15:23 SY MEDICAL BLANKET,WARM AIR CCL * [id number] Used CATHETER, TACTICATH ABLAT [id number] 15:23 [facility] [employer] Used 65 BUNDLE BUNDLE CATHETER, FR7 OPTIMA SPIRAL 15:23 [facility] FR7 [id number] Used BUNDLE 15:23 [facility] CATHETER, JSN, QUAD BUNDLE FR 5 [id number] Used 15:23 [facility] CATHETER, JSN, QUAD BUNDLE FR 5 [id number] Used 15:23 [facility] ELECTRODE KIT, MARQUITA X SURFACE * [id number] Used SET, [place] TUBING 15:23 [facility] [id number] Used BUNDLE 15:23 [facility] SHEATH, EPS, FR6 FAST CATH FR 6 [id number] Used 15:23 [facility] SHEATH, EPS, FR7 FAST CATH FR 7 [id number] Used 15:23 [facility] SHEATH, EPS, FR8 FAST CATH FR 8 [id number] Used SHEATH, FR8.5 STEERABLE SM 15:23 [facility] 71CM [id number] Used 71CM BUNDLE CATHETER, ACUNAV FR10 ICE 15:39 DEMI FR 10 [id number] Used (DEMI) [facility] PAD, ELECTROSURGICAL 15:23 * [id number] Used SURGICAL GROUNDING (BLUE) History: Allergies Allergy Reaction NKDA History: Risk Factors Previous [facility] Yes Prior PCI Yes Labs Hgb (g/dl) Hct (%) RBC (MIL/MM3) WBC (l/cumm) Platelets (thousands) 12.00-18.00 37.00-55.00 4.80-6.20 4.80-10.80 140.00-450.00 15.0 46 8.4 8.2 370 Glucose (mg/dl) BUN (mg/dl) Creatinine (mg/dl) BUN:Creatinine (1:x) 60.00-110.00 8.00-20.00 0.10-9.00 10.00-20.00 97 18 1.1 16.4 Na (meq/l) K (meq/l) 138.00-146.00 3.80-5.10 143 3.9 INR (PTT:PT) 0.50-2.00 1.1 Medication Medication Total Dose (Bolus/Oral) Medication Total Dosage/Unit 1% XYLOCAINE 40 mL HEPARIN 90886 units PROTAMINE 40 mg Medications (Bolus/Oral) Medication Time Given Dosage/Unit Administered By Reason 1% XYLOCAINE 07/15/2016 3:25:49 PM 20 Kait Bejarano 20 mL 1% XYLOCAINE given in lab by Kait Brown in Left Groin via Subcutaneous. Ordered by Sheldon Brown. 1% XYLOCAINE 07/15/2016 3:31:31 PM 20 mL Kait Brown 20 mL 1% XYLOCAINE given in lab by Kait Brown in Right Groin via Subcutaneous. Ordered by Luiz Brown. HEPARIN 07/15/2016 3:37:52 PM 38446 units Anesthesia, SIMULATION TECHNICIAN As per physicians ve rbal order 27676 units HEPARIN given in lab by Anesthesia, SIMULATION TECHNICIAN via Peripheral IV. Ordered by Kait Brown. [place] son: As per physicians verbal order. PROTAMINE 07/15/2016 4:43:56 PM 40 mg Anesthesia, SIMULATION TECHNICIAN 40 mg PROTAMINE given in lab by Anesthesia, SIMULATION TECHNICIAN via Peripheral IV. Ordered by Kait Brown. Medication (Drip) Medication Time Given Dosage/Unit Concentration/Unit Diluent (ml) Solution CARDIZEM 07/15/2016 2:23:07 PM 30 mg Patient arrived on 2.5cc/hr CARDIZEM gtt in Right Forearm via Peripheral IV. HEPARIN DRIP 07/15/2016 3:52:55 PM 1000 units/hr 92473 units 250 D5W 1000 units/hr HEPARIN DRIP given in lab by Anesthesia, SIMULATION TECHNICIAN via Peripheral IV. Pump/Drip Flow = 10 ml /hr [place] [address] units in 250 ml. Ordered by Kait Brown. Reason: As per physicians verbal order. ISUPREL 07/15/2016 4:30:17 PM 5 mcg/min 1 mg 250 NaCl .9 5 mcg/min ISUPREL given in lab by Anesthesia, SIMULATION TECHNICIAN via Peripheral IV. Pump/Drip Flow = 75 ml/hr using NaCl .9 with a concentration of 1 mg in 250 ml. Ordered by Kait Brown. Reason: As per physicians verbal order. LEVAQUIN 07/15/2016 3:03:10 PM 100 mL/hr 500 100 NaCl .9 Patient arrived on 100 mL/hr LEVAQUIN given by Anesthesia, SIMULATION TECHNICIAN in Right Forearm via Peripheral IV. P ump/Drip Flow = 0 ml/hr using NaCl .9 with a concentration of 500 in 100 ml. Reason: As per physicians verbal order. for roland insertion Initial Case Assessment Cardiovascular HR Rhythm NIBP Chest Pain 132 af 127/84 0 Edema Present Skin color Skin None Normal Warm Dry Circulatory - Right Pulses Dorsalis Pedis 2 Scale (0,1,2,3,4,d) Circulatory - Left Pulses Dorsalis Pedis 2 Scale (0,1,2,3,4,d) Circulatory - Lower Extremities Color Lower Right Color Lower Left Normal Normal Neurological State Oriented to time-place- Alert Moves all extremities person Respiration - General Respiration Rate SpO2 (%) (B/min) 20 98 Final Case Assessment Cardiovascular HR Rhythm NIBP Chest Pain 85 sr 91/63 0 Edema Present Skin color Skin None Normal Warm Dry Circulatory - Right Pulses Dorsalis Pedis 2 Scale (0,1,2,3,4,d) Circulatory - Left Pulses Dorsalis Pedis 2 Scale (0,1,2,3,4,d) Circulatory - Lower Extremities Color Lower Right Color Lower Left Normal Normal Neurological State Lethargic Moves all extremities Respiration - General Respiration Rate SpO2 (%) O2 (lpm) (B/min) 20 96 4 Chronological Log Time Study Chronological Log 14:22:43 Patient arrived via Bed. 14:22:44 Patient Name, D.O.B, / Armband Verified By R.N. 14:22:45 Consent signed by the physician and the patient and verified by the Debug Technician staff. 14:22:46 Pre-op and post- op instructions given; patient acknowledges understanding of instructions. 14:22:47 Verbal Stimulation=2 Physical Stimulation=2 Airway=2 Respiration=2 TOTAL=8. (0=absent, 1=li mited, 2=present) 14:22:48 Anesthesia at bedside. Assumes care of patient. 14:22:49 Patient has been NPO for More than 6Hrs. 14:22:51 Skin Breakdown. none per pt 14:23:07 Patient arrived on 2.5cc/hr CARDIZEM gtt in Right Forearm via Peripheral IV. 14:23:14 Patient Warmer Placed on the Table. 14:23:16 Disposable Defibrillator Pads Placed On Patient. 14:23:17 [place] Prominences Protected 14:23:20 A # 20 IV was noted in the Forearm (right). Grade = 0 0.9ns kvo Assessment: Initial Case, PN=920 BPM, Rhythm=af, ZOQJ=792/84 mmhg, Chest Pain=0, Edema=None, Co jenn=Normal, Skin = Warm, Dry Right Pulses: Richard Ped=2 Left Pulses: Richard Ped=2 14:40:12 Lower Right Extremities: Color=Normal Lower Left Extremities: Color=Normal Neurological: State=Alert, Ox3, EDMOND Respiration: Resp=20 B/min, SpO2=98 % 14:45:37 Table restraints applied according to hospital policy 14:53:59 History and physical on the chart or being dictated. 14:57:22 Reference ECG taken 14:59:51 Anesthesia present for intubation. 14 fr roland inserted x1 attempt, w/o difficutly using st erile technique. 15:02:00 Bilateral groins prepped with 2% chlorhexidine, and with a 3 min. waiting time. Patient arrived on 100 mL/hr LEVAQUIN given by Anesthesia, SIMULATION TECHNICIAN in Right Forearm via Peripheral IV. Pump/Drip Flow 15:03:10 = 0 ml/hr using NaCl .9 with a concentration of 500 in 100 ml. Reason: As per physicians ve rbal order. for roland insertion 15:14:01 MD arrived. Time Out. Correct patient, procedure, procedure equipment, site and side verified with physicia n present. Time 15:20:00 concurred by MD, individual staff and SIMULATION TECHNICIAN. Time Out #2 - Consents verified, patient in correct position, all results are labled and displa yed, safety precautions 15:20:21 taken, antibiotics administered. Time out concurred by MD, individual staff and SIMULATION TECHNICIAN in procedu re 15:20:43 Case Start 15:20:44 Cardizem gtt off per md order. 15:20:45 AVANI in progress 15:24:45 AVANI complete 15:25:49 20 mL 1% XYLOCAINE given in lab by Kait Brown in Left Groin via Subcutaneous. Ordered by Kait Brown. 15:26:24 Vascular access was obtained in the Fem Vein (left). 15:26:26 Vascular access was obtained in the Fem Vein (left). 15:26:31 Vascular access was obtained in the Fem Vein (left). 15:26:46 Vascular access was obtained in the Fem Art (left). A SHEATH, FR4.5 PRELUDE 11CM FR 4.5 was advanced into the Fem Art (left) using the Modified Hemalatha mc technique. 15:27:11 0.9ns pressure bag connected. 15:28:45 A SHEATH, EPS, FR6 FAST CATH FR 6 was advanced into the Fem Vein (left) using the Modified Seldinger technique. 15:28:56 A SHEATH, EPS, FR7 FAST CATH FR 7 was advanced into the Fem Vein (left) using the Modified Seldinger technique. 15:29:00 A SHEATH, FR10 HELENA 11CM FR 10 was advanced into the Fem Vein (left) using the Modified S eldinger technique. A SHEATH, FR9 HELENA 11CM FR 9 was advanced into the Fem Vein (left) using the Modified [place] er technique. 15:29:43 0.9ns kvo connected 15:31:31 20 mL 1% XYLOCAINE given in lab by Kait Brown in Right Groin via Subcutaneous. Ordered b y Kait Brown. 15:31:46 Vascular access was obtained in the Fem Vein (right). 15:31:50 A SHEATH, EPS, FR8 FAST CATH FR 8 was advanced into the Fem Vein (right) using the Modified Seldinger technique. A CATHETER, JSN, QUAD BUNDLE FR 5 was advanced vis Fem Vein (left) and placed in the CS. Placem ent was visually 15:34:08 confirmed under fluoroscopy. A CATHETER, JSN, QUAD BUNDLE FR 5 was advanced vis Fem Vein (left) and placed in the HIS. Place ment was 15:34:35 visually confirmed under fluoroscopy. 15:35:33 Beginning of case Body Temp 36.1. A SHEATH, FR8.5 STEERABLE SM 71CM BUNDLE 71CM was exchanged in the Fem Vein (right). This was n ecessary in 15:36:33 order for catheter support. 15:36:44 [place] [address] units HEPARIN given in lab by Anesthesia, SIMULATION TECHNICIAN via Peripheral IV. Ordered by Aditya Brown Reason: As per 15:37:52 physicians verbal order. 15:38:00 CATHETER, ACUNAV FR10 ICE (DEMI) FR 10 Was Postioned. 15:40:05 A eps was advanced to the right atrium and passed through the septal wall to the left atriu m. 15:40:14 [place] out A CATHETER, FR7 OPTIMA SPIRAL BUNDLE FR7 was advanced vis Fem Vein (right) and placed in the LA . Placement 15:40:37 was visually confirmed under fluoroscopy. Mapping in progress 15:43:11 Activated Clotting Time Drawn 15:51:33 ACT (Normal Range 90-180) = 349 1000 units/hr HEPARIN DRIP given in lab by Anesthesia, SIMULATION TECHNICIAN via Peripheral IV. Pump/Drip Flow = 10 ml/hr using 15:52:55 [place] [address] units in 250 ml. Ordered by Kait Brown. Reason: As per phy sicians verbal order. 15:53:06 Mapping complete. Catheter was removed A CATHETER, TACTICATH ABLAT 65 BUNDLE was advanced vis Fem Vein (right) and placed in the LA. P lacement was 15:53:20 visually confirmed under fluoroscopy. 15:54:00 RF Ablation of the LT. ATRIUM with a CATHETER, TACTICATH ABLAT 65 BUNDLE. 16:14:46 Activated Clotting Time Drawn 16:24:00 ACT (Normal Range 90-180) = 353 16:24:15 Ablation Catheter was removed A CATHETER, FR7 OPTIMA SPIRAL BUNDLE FR7 was advanced vis Fem Vein (right) and placed in the LA . Placement 16:24:44 was visually confirmed under fluoroscopy. Mapping in progress. 16:26:48 EPS in progress. 5 mcg/min ISUPREL given in lab by Anesthesia, SIMULATION TECHNICIAN via Peripheral IV. Pump/Drip Flow = 75 ml/hr using NaCl .9 with 16:30:17 a concentration of 1 mg in 250 ml. Ordered by Kait Brown. Reason: As per physicians verbal o rder. 16:39:06 Isuprel off. 16:41:54 Catheters removed without difficulty A SHEATH, FR9 HELENA 11CM FR 9 was exchanged in the Fem Vein (right). This was necessary in ord er to achieve 16:42:26 vascular hemostasis. 16:43:56 40 mg PROTAMINE given in lab by Anesthesia, SIMULATION TECHNICIAN via Peripheral IV. Ordered by Aditya Brown 16:44:15 Sheath(s) left in place, sutured, 0.9ns kvo connected and will be removed in Holding Area 16:44:35 No case complications noted. 16:44:36 Cine recording checked. 16:44:54 PACU called. Spoke to Arnoldo. 16:45:12 Bedside Report will be given. 16:45:54 Ablation procedure performed: AFIB. 16:45:58 EP Procedure was performed. 16:53:00 Activated Clotting Time Drawn 16:53:43 Case End 16:53:54 ACT (Normal Range 90-180) = 131 16:54:45 Sterile dressing applied to sites 17:02:46 End of case Body Temp 35.6. Assessment: Final Case, HR=85 BPM, Rhythm=sr, NIBP=91/63 mmhg, Chest Pain=0, Edema=None, Color= Normal, Skin = Warm, Dry Right Pulses: Richard Ped=2 Left Pulses: Richard Ped=2 17:02:59 Lower Right Extremities: Color=Normal Lower Left Extremities: Color=Normal Neurological: State=Lethargic, EDMOND Respiration: Resp=20 B/min, SpO2=96 %, O2=4 lpm 17:06:55 Patient moved to stretcher End Study - Contrast Media Used In Study Contrast Total Opened (mL) Total Used (mL) Total Wasted (mL) Unspecified 0 0 0 End Study - Maximum Contrast Load Max Contrast Load (mL) 389.0 End Study - Radiation Exposure Fluoro Time (minutes) 1.7 End Study - Patient Disposition Complications Transferred To Interventional Outcome No Telemetry Bed successful
[2016-07-15] MEDS ORDERED: ONDANSETRON HCL 4 MG/2 ML VIAL IV PRN (17:15)
[2016-07-15] MEDS ORDERED: oxyCODONE/ACETAMINOPHEN 5 MG/325 MG TAB PO PRN ×2 (17:15)
[2016-07-15] MEDS ORDERED: LIDOCAINE HCL 1% 50 ML VIAL INFIL PRN (17:15)
[2016-07-15] MEDS ORDERED: ATROPINE SULFATE 1 MG/ML VIAL IV PRN (17:15)
[2016-07-15] MEDS ORDERED: METOCLOPRAMIDE HCL 10 MG/2 ML VIAL IV PRN (17:15)
[2016-07-15] MEDS ORDERED: LORazepam 2 MG/ML VIAL IV PRN (17:15)
[2016-07-15] MEDS ORDERED: BACITRACIN OINT 0.9 GM PKT TOP ONE (17:15)
[2016-07-15] MEDS ORDERED: SODIUM CHLOR 0.9% 250 ML INJ 250 ML IV PRN (17:15)
[2016-07-15] MEDS ORDERED: MORPHINE SULFATE 4 MG/ML INJ ONE (17:27)
[2016-07-15] MEDS: ATORVASTATIN 80 MG TAB PO SCH (20:36)
[2016-07-15] MEDS: APIXABAN 5 MG TABLET PO SCH (20:37)
[2016-07-15] MEDS: METOPROLOL TARTRATE 25 MG TAB PO SCH (22:57)
[2016-07-16] VITALS (12 sets, daily range): BP systolic 101–116; BP diastolic 73–74; PULSE 58–71; RESP 16–18; TEMP 97.9; O2SAT 97–99
[2016-07-16] MEDS: METOPROLOL TARTRATE 25 MG TAB PO SCH (05:12)
[2016-07-16 06:29] LABS: HEMATOCRIT 40.4 % (39.0-51.0); MEAN CORPUSCULAR HEMOGLOBIN 28.3 PG (27.0-34.0); MEAN CORPUSCULAR HGB CONC 33.3 % (32.0-36.0); PLATELET COUNT 309 TH/MM3 (150-450); RED BLOOD COUNT 4.75 MIL/MM3 (4.50-5.90); RED CELL DISTRIBUTION WIDTH 13.9 % (11.6-17.2); REVIEW FLAG FINAL; WHITE BLOOD COUNT 9.2 TH/MM3 (4.0-11.0)
[2016-07-16 06:38] LABS: APTT (PATIENT) 28.2 SEC (24.3-30.1); INTERNATIONAL NORMALIZED RATIO 1.1 RATIO; PROTHROMBIN TIME - PATIENT 11.9 SEC (9.8-11.6)
[2016-07-16 06:52] LABS: BICARBONATE 19.8 MEQ/L (21.0-32.0); POTASSIUM 4.3 MEQ/L (3.5-5.1)
--- NOTE | 2016-07-16 08:30 | EKG ---
Date Performed: 07/16/2016 Time Performed: 05:04:08 PTAGE: 71 years EKG: Sinus rhythm Left axis deviation Inferior infarct - age undetermined Anterolateral infarct - age undetermined Gen eralized low QRS voltages Abnormal ECG PREVIOUS TRACING : 07/15/2016 18.01 DOCTOR: Igor Hoover Interpretating Date/Time 07/16/2016 08:29:51
--- NOTE | 2016-07-16 08:36 | PD.CARD.PN ---
Subjective Subjective Remarks Feels ok. Objective Medications Current Medications Medications (Trade) Dose Ordered Sig/Kenia Route Start Time Stop Time Status Last Admin (NS Flush) 2 ml UNSCH PRN IV FLUSH 07/11/16 13:00 (NS Flush) 2 ml BID IV FLUSH 07/11/16 21:00 07/15/16 20:37 (Tylenol) 650 mg Q4H PRN PO 07/11/16 13:00 (Narcan Inj) 0.4 mg UNSCH PRN IV 07/11/16 13:00 (Xanax) 0.25 mg Q6HR PRN PO 07/11/16 13:00 07/15/16 08:51 (Ecotrin Ec) 81 mg DAILY PO 07/12/16 09:00 07/15/16 08:51 (Lipitor) 80 mg HS PO 07/11/16 21:00 07/15/16 20:36 (Protonix) 40 mg DAILY PO 07/12/16 09:00 07/15/16 08:50 (Plavix) 75 mg DAILY PO 07/12/16 09:00 07/15/16 08:50 (Percocet 5-325 Mg) 1 tab Q4H PRN PO 07/15/16 17:15 (Percocet 5-325 Mg) 2 tab Q4H PRN PO 07/15/16 17:15 (Ativan Inj) 0.5 mg UNSCH PRN IV 07/15/16 17:15 07/16/16 17:14 Atropine Sulfate 0.5 mg 0.5 mg UNSCH PRN IV 07/15/16 17:15 (NS 250 ml Inj) 250 ml @ 500 mls/hr ONCE PRN IV 07/15/16 17:15 07/16/16 17:14 (Reglan Inj) 10 mg Q4H PRN IV 07/15/16 17:15 (Zofran Inj) 4 mg Q4H PRN IV 07/15/16 17:15 (Xylocaine 1% Inj (50 ml)) 10 ml UNSCH PRN INFIL 07/15/16 17:15 07/16/16 17:14 (Eliquis) 5 mg BID PO 07/15/16 21:00 07/15/16 20:37 (Lopressor) 25 mg Q8HR PO 07/15/16 22:00 07/16/16 05:12 Vital Signs / I&O Vital Signs Date Time Temp Pulse Resp B/P Pulse Ox O2 Delivery O2 Flow Rate FiO2 07/16/16 08:03 63 07/16/16 07:53 71 07/16/16 07:52 97.9 60 18 116/74 99 07/16/16 06:20 58 07/16/16 05:00 62 07/16/16 04:50 64 07/16/16 03:20 97.9 67 16 101/73 97 07/16/16 03:01 62 07/16/16 02:05 64 07/16/16 01:05 68 07/16/16 00:00 64 07/15/16 23:15 97.7 79 16 103/70 93 07/15/16 23:00 79 07/15/16 22:00 72 07/15/16 21:00 68 07/15/16 20:00 67 07/15/16 19:00 97.5 68 18 100/71 99 07/15/16 19:00 64 07/15/16 18:15 97.6 67 17 89/66 97 07/15/16 18:15 66 07/15/16 18:10 68 17 96/63 95 Nasal Cannula 2 07/15/16 18:00 97.6 64 17 94/65 94 Nasal Cannula 2 07/15/16 17:45 66 16 91/63 96 Nasal Cannula 2 07/15/16 17:30 67 16 89/61 96 Nasal Cannula 2 07/15/16 17:15 97.5 74 15 96/64 95 Nasal Cannula 3 07/15/16 14:00 121 07/15/16 13:00 103 07/15/16 12:00 100 07/15/16 11:00 130 07/15/16 11:00 98.1 93 20 100/71 95 07/15/16 10:00 100 07/15/16 09:00 110 I/O 07/15/16 07/15/16 07/15/16 07/16/16 07/16/16 07/16/16 07:00 15:00 23:00 07:00 15:00 23:00 Intake Total 1026 ml 1840 ml 1440 ml Output Total 1075 ml 110 ml 390 ml Balance -49 ml 1730 ml 1050 ml Intake Oral 960 ml 240 ml 1440 ml IV Total 66 ml 100 ml 0 ml Other 1500 ml Output Urine Total 1075 ml 100 ml 390 ml Estimated Blood Loss 10 ml # Voids 2 # Bowel Movements 0 0 Physical Exam GENERAL: Well-nourished, well-developed patient. SKIN: Warm and dry. Groin sites soft without swelling, bruising or bleeding. HEAD: Normocephalic. EYES: No scleral icterus. No injection or drainage. NECK: Supple, trachea midline. No JVD or lymphadenopathy. CARDIOVASCULAR: Regular rate and rhythm without murmurs, gallops, or rubs. RESPIRATORY: Breath sounds equal bilaterally. No accessory muscle use. GASTROINTESTINAL: Abdomen soft, non-tender, nondistended. EXTREMITIES: No cyanosis, or edema. NEUROLOGICAL: Awake, alert, and oriented x 3. Non-focal. Laboratory Laboratory Tests Test 07/16/16 06:03 White Blood Count 9.2 TH/MM3 Red Blood Count 4.75 MIL/MM3 Hemoglobin 13.4 GM/DL Hematocrit 40.4 % Mean Corpuscular Volume 85.0 FL Mean Corpuscular Hemoglobin 28.3 PG Mean Corpuscular Hemoglobin 33.3 % Concent Red Cell Distribution Width 13.9 % Platelet Count 309 TH/MM3 Mean Platelet Volume 8.0 FL Prothrombin Time 11.9 SEC Prothromb Time International 1.1 RATIO Ratio Activated Partial 28.2 SEC Thromboplast Time Sodium Level 136 MEQ/L Potassium Level 4.3 MEQ/L Chloride Level 107 MEQ/L Carbon Dioxide Level 19.8 MEQ/L Anion Gap 9 MEQ/L Blood Urea Nitrogen 18 MG/DL Creatinine 1.05 MG/DL Estimat Glomerular Filtration 70 ML/MIN Rate Random Glucose 112 MG/DL Calcium Level 8.4 MG/DL Assessment and Plan Problem List: (1) Atrial fibrillation Assessment and Plan: NSR on tele s/p ablation. (2) S/P ablation of atrial fibrillation Assessment and Plan: Groins stable, NSR, continue Eliquis. Can be discharged from an EP standpoint when cleared by managing team per my d/w Dr. Brown. F/U with him in 3 weeks. Problem Qualifiers (1) Atrial fibrillation: Qualified Code: I48.91 - Atrial fibrillation, unspecified type Mariana Morris July 16, 2016 08:36
--- NOTE | 2016-07-16 08:48 | EKG ---
Date Performed: 07/15/2016 Time Performed: 18:01:12 PTAGE: 71 years EKG: Sinus rhythm LOW QRS VOLTAGE PATTERN CONSISTENT WITH PULMONARY DISEASE RIGHT BUNDLE BRANCH BLOCK LEFT ANTERIOR FA SCICULAR BLOCK MODERATE T-WAVE ABNORMALITY, CONSIDER LATERAL ISCHEMIA MODERATE T-WAVE ABNORMALITY, CO NSIDER INFERIOR ISCHEMIA ABNORMAL ECG PREVIOUS TRACING : 07/11/2016 10.44 DOCTOR: Igor Hoover Interpretating Date/Time 07/16/2016 08:48:19
--- NOTE | 2016-07-16 08:50 | HHI.PR ---
Subjective Remarks up and ambulating- in SR- 64/min no chest pain or shortness of breath seen with Objective Vitals Vital Signs Date Time Temp Pulse Resp B/P Pulse Ox O2 Delivery O2 Flow Rate FiO2 07/16/16 08:03 63 07/16/16 07:53 71 07/16/16 07:52 97.9 60 18 116/74 99 07/16/16 06:20 58 07/16/16 05:00 62 07/16/16 04:50 64 07/16/16 03:20 97.9 67 16 101/73 97 07/16/16 03:01 62 07/16/16 02:05 64 07/16/16 01:05 68 07/16/16 00:00 64 07/15/16 23:15 97.7 79 16 103/70 93 07/15/16 23:00 79 07/15/16 22:00 72 07/15/16 21:00 68 07/15/16 20:00 67 07/15/16 19:00 97.5 68 18 100/71 99 07/15/16 19:00 64 07/15/16 18:15 97.6 67 17 89/66 97 07/15/16 18:15 66 07/15/16 18:10 68 17 96/63 95 Nasal Cannula 2 07/15/16 18:00 97.6 64 17 94/65 94 Nasal Cannula 2 07/15/16 17:45 66 16 91/63 96 Nasal Cannula 2 07/15/16 17:30 67 16 89/61 96 Nasal Cannula 2 07/15/16 17:15 97.5 74 15 96/64 95 Nasal Cannula 3 07/15/16 14:00 121 07/15/16 13:00 103 07/15/16 12:00 100 07/15/16 11:00 130 07/15/16 11:00 98.1 93 20 100/71 95 07/15/16 10:00 100 07/15/16 09:00 110 I/O 07/15/16 07/15/16 07/15/16 07/16/16 07/16/16 07/16/16 07:00 15:00 23:00 07:00 15:00 23:00 Intake Total 1026 ml 1840 ml 1440 ml Output Total 1075 ml 110 ml 390 ml Balance -49 ml 1730 ml 1050 ml Intake Oral 960 ml 240 ml 1440 ml IV Total 66 ml 100 ml 0 ml Other 1500 ml Output Urine Total 1075 ml 100 ml 390 ml Estimated Blood Loss 10 ml # Voids 2 # Bowel Movements 0 0 Result Diagram: 07/16/16 0603 07/16/16 0603 Imaging Last Impressions Chest X-Ray 07/11/16 0945 Signed Impressions: Service Date/Time: Monday, July 11, 2016 09:57 - CONCLUSION: No acute disease. Umesh Verdugo MD Objective Remarks GENERAL: awake and alert, NAD SKIN: Warm and dry. HEAD: Normocephalic. EYES: No scleral icterus NECK: Supple, trachea midline. No JVD or lymphadenopathy. CARDIOVASCULAR: Regular rate and rhythm without murmurs, gallops, or rubs. RESPIRATORY: Breath sounds equal bilaterally. No accessory muscle use. GASTROINTESTINAL: Abdomen soft, non-tender, nondistended. MUSCULOSKELETAL: No cyanosis, or edema. bilateral groin areas- no hematomas, good inguinal pulses neuro exam- unremarkable Procedures 07/15 -ablation A/P Assessment and Plan 71-year-old male with: Symptomatic tachy-jewels syndrome. 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 Brown cleared for DC- OP ff up in 3 weeks - on LOpressor 25 mg po q8 -Eliquis CAD/recent STEMI -continue with home regimen. continue statins/ ASA/Plavix for recent STEMI s/p BMS per cardiology - OP ff up with dr. Swift as scheduled. GERD/Anxiety -Continue with home regimen. Incisional hernia -Most likely hematoma at the site, and it is resolving. some mild ecchymosis noted near umbilicus. non painful -Continue to monitor clinically. home today FF u in 3 weeks- Dr. Brown ff up with Dr. Swift- as scheduled Alisa Lopez MD July 16, 2016 08:50 FF up with cardiology in 3 weeks Alisa Lopez MD July 16, 2016 08:50
[2016-07-16] MEDS: APIXABAN 5 MG TABLET PO SCH (09:19)
[2016-07-16] MEDS: PANTOPRAZOLE SOD 40 MG DELAYED RELEASE TAB PO SCH (09:19)
[2016-07-16] MEDS: CLOPIDOGREL 75 MG TAB PO SCH (09:19)
[2016-07-16] MEDS: ASPIRIN EC 81 MG TABEC PO SCH (09:20)
[2016-07-16] MEDS: SODIUM CHLORIDE 0.9% FLUSH 10 ML FLUSH IV FLUSH SCH (09:20)
[2016-07-16] MEDS ORDERED: METO25TA3 PO (09:26)
--- NOTE | 2016-07-16 09:29 | HHI.DS ---
Discharge Summary Admission Date Jul 11, 2016 at 12:56 Discharge Date: July 16, 2016 Admitting Diagnosis symptomatic bradycardia, sick sinus syndrome, dizziness (1) Symptomatic bradycardia ICD Code: R00.1 Diagnosis: Principal (2) CAD (coronary artery disease) ICD Code: I25.10 Diagnosis: Secondary Procedures 07/15 -ablation Brief History - From Admission Alfred Anderson is a pleasant 71-year-old male who presents to [facility] emergency room on July 11, 2016 due to dizziness. Earlier this month he had a posterolateral ST elevation myocardial infarction and underwent cardiac catheterization with placement of a bare metal stent. During his hospitalization, he then went into atrial fibrillation with rapid ventricular response. This was difficult to control and required multiple medications. After being controlled, his heart rate was mostly in the 50s. He was discharged on metoprolol 25 mg in the morning and Cardizem 120 mg daily. He had been feeling well most of the week and then this morning, after eating breakfast, he was with his friend and was feeling lightheaded. He denies chest pain or shortness of breath with the episodes. He stopped at a fire station and they said that he was in atrial fibrillation. He was recommended to go to the emergency room. On arrival to the emergency room, he was found to be in sinus bradycardia. While in the emergency room, telemetry shows heart rates down into the low to mid 30s. Admitted for further evaluation with cardiology consult. CBC/BMP: 07/16/16 0603 07/16/16 0603 Significant Findings Laboratory Tests Test 07/14/16 07/16/16 08:25 06:03 Prothrombin Time 12.1 SEC 11.9 SEC (9.8-11.6) (9.8-11.6) Carbon Dioxide Level 19.8 MEQ/L (21.0-32.0) Estimat Glomerular Filtration 70 ML/MIN (>89) Rate Random Glucose 112 MG/DL (74-106) Calcium Level 8.4 MG/DL (8.5-10.1) Imaging Last Impressions Chest X-Ray 07/11/16 0906 Signed Impressions: Service Date/Time: Monday, July 11, 2016 09:57 - CONCLUSION: No acute disease. Umesh Verdugo MD PE at Discharge GENERAL: awake and alert, NAD SKIN: Warm and dry. HEAD: Normocephalic. EYES: No scleral icterus NECK: Supple, trachea midline. No JVD or lymphadenopathy. CARDIOVASCULAR: Regular rate and rhythm without murmurs, gallops, or rubs. RESPIRATORY: Breath sounds equal bilaterally. No accessory muscle use. GASTROINTESTINAL: Abdomen soft, non-tender, nondistended. MUSCULOSKELETAL: No cyanosis, or edema. bilateral groin areas- no hematomas, good inguinal pulses, abdomen soft, good bowel sounds, no ecchymoses neuro exam- unremarkable Pt update on day of discharge awake and alert, NAD, in SR Hospital Course 71-year-old male with: Symptomatic tachy-jewels syndrome. 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 Brown cleared for DC- OP ff up in 3 weeks - on LOpressor 25 mg po q8 -Eliquis CAD/recent STEMI -continue with home regimen. continue statins/ ASA/Plavix for recent STEMI s/p BMS per cardiology - OP ff up with dr. Swift as scheduled. GERD/Anxiety -Continue with home regimen. Incisional hernia -Most likely hematoma at the site, and it is resolving. some mild ecchymosis noted near umbilicus. non painful -Continue to monitor clinically. home today FF u in 3 weeks- Dr. Brown ff up with Dr. Swift- as scheduled Pt Condition on Discharge: Stable Discharge Disposition: Discharge Home Discharge Time: <= 30 minutes Discharge Instructions DIET: Follow Instructions for: Heart Healthy Diet Activities you can perform: Weight Bearing as Bee Activities to Avoid: Strenuous Activity Follow up Referrals: Cardiology - 1 Week with [facility] - 3 Weeks with Kait Brown MD PCP Follow-up - 1 Week with PCP New Medications: Metoprolol Tartrate (Metoprolol Tartrate) 25 Mg Tab 25 MG PO Q8HR ARRHY Days 30 TAB Continued Medications: Alprazolam (Xanax) 0.25 Mg Tab 0.25 MG PO Q6HR PRN ANXIETY #30 Ref 0 TAB Apixaban (Eliquis) 5 Mg Tab 5 MG PO BID blood thinner #60 Ref [address] (Aspirin EC) 81 Mg Tabdr 81 MG PO DAILY Blood Clot Prevention #30 Ref 0 TAB Atorvastatin (Atorvastatin) 80 Mg Tab 80 MG PO HS Cholesterol Management #30 Ref 0 TAB Clopidogrel (Plavix) 75 Mg Tab 75 MG PO DAILY Blood Clot Prevention #30 Ref 0 TAB Pantoprazole (Pantoprazole) 40 Mg Tab 40 MG PO DAILY Heartburn Management #30 Ref 0 TAB Discontinued Medications: Diltiazem ER 24 HR (Diltiazem ER 24 HR) 120 Mg Caper 120 MG PO DAILY Take in morning heart rhythm control #30 Ref 0 CAP Metoprolol Tartrate (Metoprolol Tartrate) 25 Mg Tab 25 MG PO DAILY #60 Ref 0 TAB Oxycodone-Acetaminophen (Oxycodone-Acetaminophen) 10-325 mg Tab 1 TAB PO Q6HR PRN PAIN SCALE 6 TO 10 #30 Ref 0 TAB Alisa Lopez MD July 16, 2016 09:29
--- NOTE | 2016-07-16 12:36 | PD.CARD.PN ---
Subjective Subjective Remarks No chest pain, no shortness of breath, feels well Objective Medications Current Medications Sodium Chloride 2 ml 2 ml UNSCH PRN IVF FLUSH AFTER USING IV ACCESS; Start at 09:45; Stop 07/15/16 at 17:49; Status DC Sodium Chloride (NS 1000 ml Inj) 1,000 ml @ 100 mls/hr Q10H ONCE IV Last administered on 07/11/16 10:18; Start 07/11/16 at 09:45; Stop 07/11/16 at 19:44 ; Status DC Sodium Chloride (NS Flush) 2 ml UNSCH PRN IV FLUSH FLUSH AFTER USING IV ACCESS ; Start 07/11/16 at 13:00; Stop 07/16/16 at 10:44; Status DC Sodium Chloride (NS Flush) 2 ml BID IV FLUSH Last administered on 07/16/16 09: 20; Start 07/11/16 at 21:00; Stop 07/16/16 at 10:44; Status DC Acetaminophen (Tylenol) 650 mg Q4H PRN PO TEMP > 100.4 Last administered on 07/16 09:19; Start 07/11/16 at 13:00; Stop 07/16/16 at 10:44; Status DC Ondansetron HCl (Zofran Inj) 4 mg Q6H PRN IVP NAUSEA OR VOMITING; Start at 13:00; Stop 07/15/16 at 17:49; Status DC Naloxone HCl (Narcan Inj) 0.4 mg UNSCH PRN IV SEE LABEL COMMENTS; Start at 13:00; Stop 07/16/16 at 10:44; Status DC Alprazolam (Xanax) 0.25 mg Q6HR PRN PO ANXIETY Last administered on 07/15/16 08 :51; Start 07/11/16 at 13:00; Stop 07/16/16 at 10:44; Status DC Apixaban (Eliquis) 5 mg BID PO Last administered on 07/12/16 09:02; Start at 21:00; Stop 07/15/16 at 17:04; Status DC Aspirin (Ecotrin Ec) 81 mg DAILY PO Last administered on 07/16/16 09:20; Start 07/12/16 at 09:00; Stop 07/16/16 at 10:44; Status DC Atorvastatin Calcium (Lipitor) 80 mg HS PO Last administered on 07/15/16 20:36 ; Start 07/11/16 at 21:00; Stop 07/16/16 at 10:44; Status DC Pantoprazole Sodium (Protonix) 40 mg DAILY PO Last administered on 07/16/16 09: 19; Start 07/12/16 at 09:00; Stop 07/16/16 at 10:44; Status DC Clopidogrel Bisulfate (Plavix) 75 mg DAILY PO Last administered on 07/16/16 09: 19; Start 07/12/16 at 09:00; Stop 07/16/16 at 10:44; Status DC Diltiazem HCl 21 mg 21 mg BOLUS ONCE IV PUSH Last administered on 07/14/16 10: 00; Start 07/14/16 at 10:00; Stop 07/14/16 at 10:01; Status DC Diltiazem HCl/ Sodium Chloride (Cardizem Inj/NS Inj) 125 ml @ 0 mls/hr TITRATE IV Last administered on 07/14/16 23:51; Start 07/14/16 at 11:00; Stop 07/15/16 at 17:04; Status DC Diltiazem HCl (Cardizem Inj) 20 mg BOLUS ONCE IV PUSH ; Start 07/14/16 at 10:01 ; Stop 07/14/16 at 10:01; Status DC Enoxaparin Sodium 80 mg 80 mg Q12H SQ Last administered on 07/15/16 01:31; Start 07/14/16 at 13:00; Stop 07/15/16 at 08:00; Status DC Heparin Sodium/ Dextrose (Heparin-D5W Inj) 250 ml @ As Directed STK-MED ONCE .ROUTE ; Start 07/15/16 at 14:24; Stop 07/15/16 at 14:25; Status DC Protamine Sulfate (Protamine Sulfate Inj) 50 mg STK-MED ONCE .ROUTE ; Start 07/15 at 14:24; Stop 07/15/16 at 14:25; Status DC Fentanyl Citrate (fentaNYL INJ) 250 mcg STK-MED ONCE .ROUTE ; Start 07/15/16 at 14:24; Stop 07/15/16 at 14:25; Status DC Heparin Sodium (Porcine) (Heparin Inj) 20,000 units STK-MED ONCE .ROUTE ; Start 07/15/16 at 14:24; Stop 07/15/16 at 14:25; Status DC Isoproterenol HCl 1 mg 1 mg STK-MED ONCE .ROUTE ; Start 07/15/16 at 14:36; Stop 07/15/16 at 14:37; Status DC Heparin Sodium/ Sodium Chloride 500 ml @ As Directed STK-MED ONCE .ROUTE Last administered on 07/15/16 14:37; Start 07/15/16 at 14:37; Stop 07/15/16 at 14:38; Status DC Levofloxacin/ Dextrose (Levaquin 500 Mg Premix Inj) 100 ml @ As Directed STK- MED ONCE IV Last administered on 07/15/16 15:00; Start 07/15/16 at 14:45; Stop 07/15/16 at 14:46; Status DC Oxycodone/ Acetaminophen (Percocet 5-325 Mg) 1 tab Q4H PRN PO PAIN SCALE 1 TO 4; Start 07/15/16 at 17:15; Stop 07/16/16 at 10:44; Status DC Oxycodone/ Acetaminophen (Percocet 5-325 Mg) 2 tab Q4H PRN PO PAIN SCALE 5 TO 10; Start 07/15/16 at 17:15; Stop 07/16/16 at 10:44; Status DC Lorazepam (Ativan Inj) 0.5 mg UNSCH PRN IV ANXIETY; Start 07/15/16 at 17:15; Stop 07/16/16 at 10:44; Status DC Atropine Sulfate 0.5 mg 0.5 mg UNSCH PRN IV VAGAL REPONSE; Start 07/15/16 at 17: 15; Stop 07/16/16 at 10:44; Status DC Sodium Chloride (NS 250 ml Inj) 250 ml @ 500 mls/hr ONCE PRN IV VAGAL REPONSE ; Start 07/15/16 at 17:15; Stop 07/16/16 at 10:44; Status DC Metoclopramide HCl (Reglan Inj) 10 mg Q4H PRN IV NAUSEA; Start 07/15/16 at 17:15 ; Stop 07/16/16 at 10:44; Status DC Ondansetron HCl (Zofran Inj) 4 mg Q4H PRN IV NAUSEA; Start 07/15/16 at 17:15; Stop 07/16/16 at 10:44; Status DC Lidocaine HCl (Xylocaine 1% Inj (50 ml)) 10 ml UNSCH PRN INFIL SHEATH REMOVAL; Start 07/15/16 at 17:15; Stop 07/16/16 at 10:44; Status DC Bacitracin (Bacitracin Oint Packet) 0.9 gm ONCE ONCE TOP ; Start 07/15/16 at 17: 15; Stop 07/15/16 at 17:46; Status DC Apixaban (Eliquis) 5 mg BID PO Last administered on 07/16/16 09:19; Start at 21:00; Stop 07/16/16 at 10:44; Status DC Metoprolol Tartrate (Lopressor) 25 mg Q8HR PO Last administered on 07/16/16 05: 12; Start 07/15/16 at 22:00; Stop 07/16/16 at 10:44; Status DC Morphine Sulfate (Morphine Inj) 4 mg STK-MED ONCE .ROUTE ; Start 07/15/16 at 17: 27; Stop 07/15/16 at 17:28; Status DC Vital Signs / I&O Vital Signs Date Time Temp Pulse Resp B/P Pulse Ox O2 Delivery O2 Flow Rate FiO2 07/16/16 09:00 70 07/16/16 08:03 63 07/16/16 07:53 71 07/16/16 07:52 97.9 60 18 116/74 99 07/16/16 06:20 58 07/16/16 05:00 62 07/16/16 04:50 64 07/16/16 03:20 97.9 67 16 101/73 97 07/16/16 03:01 62 07/16/16 02:05 64 07/16/16 01:05 68 07/16/16 00:00 64 07/15/16 23:15 97.7 79 16 103/70 93 07/15/16 23:00 79 07/15/16 22:00 72 07/15/16 21:00 68 07/15/16 20:00 67 07/15/16 19:00 97.5 68 18 100/71 99 07/15/16 19:00 64 07/15/16 18:15 97.6 67 17 89/66 97 07/15/16 18:15 66 07/15/16 18:10 68 17 96/63 95 Nasal Cannula 2 07/15/16 18:00 97.6 64 17 94/65 94 Nasal Cannula 2 07/15/16 17:45 66 16 91/63 96 Nasal Cannula 2 07/15/16 17:30 67 16 89/61 96 Nasal Cannula 2 07/15/16 17:15 97.5 74 15 96/64 95 Nasal Cannula 3 07/15/16 14:00 121 07/15/16 13:00 103 I/O 07/15/16 07/15/16 07/15/16 07/16/16 07/16/16 07/16/16 07:00 15:00 23:00 07:00 15:00 23:00 Intake Total 1026 ml 1840 ml 1440 ml Output Total 1075 ml 110 ml 390 ml Balance -49 ml 1730 ml 1050 ml Intake Oral 960 ml 240 ml 1440 ml IV Total 66 ml 100 ml 0 ml Other 1500 ml Output Urine Total 1075 ml 100 ml 390 ml Estimated Blood Loss 10 ml # Voids 2 # Bowel Movements 0 0 Physical Exam GENERAL: NAD, AAOx3 SKIN: Warm and dry. HEAD: Atraumatic. Normocephalic. EYES: Pupils equal and round. No scleral icterus. No injection or drainage. ENT: No nasal bleeding or discharge. Mucous membranes pink and moist. NECK: Trachea midline. No JVD. CARDIOVASCULAR: RRR RESPIRATORY: No accessory muscle use. Clear to auscultation. Breath sounds equal bilaterally. GASTROINTESTINAL: Abdomen soft, non-tender, nondistended. Hepatic and splenic margins not palpable. MUSCULOSKELETAL: Extremities without clubbing, cyanosis, or edema. No obvious deformities. No hematoma bilateral groins NEUROLOGICAL: Awake and alert. No obvious cranial nerve deficits. Motor grossly within normal limits. Five out of 5 muscle strength in the arms and legs. Normal speech. PSYCHIATRIC: Appropriate mood and affect; insight and judgment normal. Laboratory Laboratory Tests Test 07/16/16 06:03 White Blood Count 9.2 TH/MM3 Red Blood Count 4.75 MIL/MM3 Hemoglobin 13.4 GM/DL Hematocrit 40.4 % Mean Corpuscular Volume 85.0 FL Mean Corpuscular Hemoglobin 28.3 PG Mean Corpuscular Hemoglobin 33.3 % Concent Red Cell Distribution Width 13.9 % Platelet Count 309 TH/MM3 Mean Platelet Volume 8.0 FL Prothrombin Time 11.9 SEC Prothromb Time International 1.1 RATIO Ratio Activated Partial 28.2 SEC Thromboplast Time Sodium Level 136 MEQ/L Potassium Level 4.3 MEQ/L Chloride Level 107 MEQ/L Carbon Dioxide Level 19.8 MEQ/L Anion Gap 9 MEQ/L Blood Urea Nitrogen 18 MG/DL Creatinine 1.05 MG/DL Estimat Glomerular Filtration 70 ML/MIN Rate Random Glucose 112 MG/DL Calcium Level 8.4 MG/DL Assessment and Plan Problem List: (1) Atrial fibrillation (2) S/P ablation of atrial fibrillation Assessment and Plan 1) Tachy-Jewels Syndrome, unable to control his Afib without him being sinus jewels with heart rates in the 35-45 range s/p Afib ablation currently NSR 60-70 2) Had some sinus bradycardia, will watch heart rates at home and if concern for bradycardia will decrease Lopressor, cardiovascularly stable for discharge, discussed with Dr. Lopez 3) ASA/Plavix for recent STEMI s/p BMS to [facility] 4) Will plan on discharging on ASA/Plavix/Eliquis Problem Qualifiers (1) Atrial fibrillation: Qualified Code: I48.91 - Atrial fibrillation, unspecified type Kelvin Swift DO July 16, 2016 12:36
--- NOTE | 2016-07-19 17:46 | ETE ---
Study Study Date:07/15/2016 STUDY CONCLUSIONS SUMMARY - Left ventricle: The cavity size was normal. Wall thickness was normal. Systolic function was normal. The estimated ejection fraction was in the range of 50% to 55%. Wall motion was normal; there were no regional wall motion abnormalities. - Aortic valve: No evidence of vegetation. - Mitral valve: No evidence of vegetation. - Left atrium: No evidence of thrombus in the atrial cavity or appendage. No evidence of thrombus in the atrial cavity or appendage. - Right atrium: No evidence of thrombus in the atrial cavity or appendage. - Atrial septum: No defect or patent foramen ovale was identified. Echo contrast study showed no [id number] atrial level shunt, at baseline or with provocation. - Tricuspid valve: No evidence of vegetation. - Pulmonic valve: No evidence of vegetation. If LV function is below 40, please consider prescribing an ACEI or ARB or document rationale for non-use. PROCEDURE DATA Consent: The risks, benefits, and alternatives to the procedure were explained to the patient and informed consent was obtained. Procedure: Initial setup. The patient was brought to the laboratory in the fasting state. Intravenous access was obtained. Surface ECG leads and pulse oximetric signals were monitored. Sedation. Conscious sedation was administered by cardiology staff. Transesophageal echocardiography. Topical anesthesia was obtained using viscous lidocaine. A transesophageal probe was inserted by the attending district sales coordinator. Image quality was good. Study completion: All IVs inserted during the procedure were removed. The patient tolerated the procedure well. There were no complications. Transesophageal echocardiography. 2D, complete spectral Doppler, and color Doppler. CARDIAC ANATOMY LEFT VENTRICLE: The cavity size was normal. Wall thickness was normal. Systolic function was normal. The estimated ejection fraction was in the range of 50% to 55%. Wall motion was normal; there were no regional wall motion abnormalities. AORTIC VALVE: Trileaflet; mildly thickened leaflets. Cusp separation was normal. No evidence of vegetation. Doppler: No significant regurgitation. Aorta: - There was no atheroma. There was no evidence for dissection. Aortic root: The aortic root was not dilated. Ascending aorta: The ascending aorta was normal in size. Aortic arch: The aortic arch was normal in size. Descending aorta: The descending aorta was normal in size. MITRAL VALVE: Structurally normal valve. Leaflet separation was normal. No evidence of vegetation. Doppler: Trace regurgitation. LEFT ATRIUM: The atrium was normal in size. No evidence of thrombus in the atrial cavity or appendage. No evidence of thrombus in the atrial cavity or appendage. The appendage was morphologically a left appendage, multilobulated, and of normal size. Emptying velocity was normal. ATRIAL SEPTUM: No defect or patent foramen ovale was identified. Echo contrast study showed no [id number] atrial level shunt, at baseline or with provocation. RIGHT VENTRICLE: The cavity size was normal. Wall thickness was normal. Systolic function was normal. PULMONIC VALVE: Structurally normal valve. No evidence of vegetation. TRICUSPID VALVE: Structurally normal valve. Leaflet separation was normal. No evidence of vegetation. Doppler: No significant regurgitation. PULMONARY ARTERY: The main pulmonary artery was normal-sized. RIGHT ATRIUM: The atrium was normal in size. No evidence of thrombus in the atrial cavity or appendage. The appendage was morphologically a right appendage. PERICARDIUM: There was no pericardial effusion. Prepared and signed by Kait Brown [id number]
== END 2016-07-16 10:43 | disposition home or self-care (01) | DRG 273 ==
LOC: NEPC 09:24 → NEDA 12:56 → NEDH 18:26 → HCIN 21:22 → HCIS 07-13 17:05 → HCIN 07-13 17:06
PROVIDERS: ADMIT Internal Medicine; ATTEND Internal Medicine
PROC: 4A023N8 Measurement of Cardiac Sampling and Pressure, Bilateral, Percutaneous Approach (ICD-10-PCS; 2016-07-15)
PROC: 4A023FZ Measurement of Cardiac Rhythm, Percutaneous Approach (ICD-10-PCS; 2016-07-15)
PROC: 4A0234Z Measurement of Cardiac Electrical Activity, Percutaneous Approach (ICD-10-PCS; 2016-07-15)
PROC: B246YZZ Ultrasonography of Right and Left Heart using Other Contrast (ICD-10-PCS; 2016-07-15)
PROC: 02K83ZZ Map Conduction Mechanism, Percutaneous Approach (ICD-10-PCS; 2016-07-15)
PROC: 02583ZZ Destruction of Conduction Mechanism, Percutaneous Approach (ICD-10-PCS; principal; 2016-07-15 12:00)
DX: I49.5 Sick sinus syndrome (principal); I21.29 ST elevation (STEMI) myocardial infarction involving other sites; L76.32 Postprocedural hematoma of skin and subcutaneous tissue following other procedure; I48.91 Unspecified atrial fibrillation; Z95.5 Presence of coronary angioplasty implant and graft; I44.4 Left anterior fascicular block; R42 Dizziness and giddiness; K21.9 Gastro-esophageal reflux disease without esophagitis; F41.9 Anxiety disorder, unspecified; I25.10 Atherosclerotic heart disease of native coronary artery without angina pectoris; I44.0 Atrioventricular block, first degree; Y83.8 Other surgical procedures as the cause of abnormal reaction of the patient, or of later complication, without mention of misadventure at the time of the procedure; Y82.9 Unspecified medical devices associated with adverse incidents; Y92.9 Unspecified place or not applicable; Z85.46 Personal history of malignant neoplasm of prostate; Z79.01 Long term (current) use of anticoagulants; Z80.3 Family history of malignant neoplasm of breast; Z87.891 Personal history of nicotine dependence
CPT/HCPCS: 71010; 76937; 80048; 80053; 82550; 83735; 84484; 85002; 85025; 85027; 85610; 85730; 93005; 93312; 93320; 93325; 93613; 93623; 93656; 93662; 96360; C1730; C1731; C1732; C1759; C1766; C2630; J1644; J1650; J1956; J2270; J2720; J3010; J7030

== ENCOUNTER 2016-07-19 23:48 | Emergency (ER) | payer MEDICARE, OTHER ==
[~2016-07-19] VITALS: Ht 182.9 cm; Wt 85.0 kg
[~2016-07-19 23:48] MED LIST changes: -DILT120C7 PO; -DOXY100C PO; -METO-309 PO; +METO25TA3 PO; -OXYC1TAB36 PO
[2016-07-19 23:54] VITALS: BP 120/90; PULSE 130; RESP 20; TEMP 98.4; O2SAT 97
[2016-07-20 00:15] VITALS: BP 114/81; PULSE 70; RESP 16; O2SAT 96
[2016-07-20 00:45] VITALS: BP 109/78; PULSE 69; RESP 16; O2SAT 96
[2016-07-20 00:55] LABS: AUTOMATED NEUTROPHIL # 4.3 TH/MM3 (1.8-7.7); BASOPHIL # 0.1 TH/MM3 (0-0.2); BASOPHIL % 1.4 % (0.0-2.0); EOSINOPHIL # 0.5 TH/MM3 (0-0.4); EOSINOPHIL % 6.8 % (0.0-4.0); HEMATOCRIT 36.2 % (39.0-51.0); HEMO FLAGS DIFF FINAL; LYMPH % 20.5 % (9.0-44.0); LYMPHOCYTE # 1.4 TH/MM3 (1.0-4.8); MEAN CELL VOLUME 85.5 FL (80.0-100.0); MEAN CORPUSCULAR HEMOGLOBIN 28.2 PG (27.0-34.0); MEAN CORPUSCULAR HGB CONC 32.9 % (32.0-36.0); MONO % 9.9 % (0.0-8.0); NEUT % 61.4 % (16.0-70.0); PLATELET COUNT 276 TH/MM3 (150-450); RED BLOOD COUNT 4.23 MIL/MM3 (4.50-5.90); RED CELL DISTRIBUTION WIDTH 13.9 % (11.6-17.2); WHITE BLOOD COUNT 7.1 TH/MM3 (4.0-11.0)
[2016-07-20 02:26] LABS: APTT (PATIENT) 27.8 SEC (24.3-30.1); PROTHROMBIN TIME - PATIENT 11.2 SEC (9.8-11.6)
[2016-07-20 02:28] LABS: ANION GAP 10 MEQ/L (5-15); BICARBONATE 24.2 MEQ/L (21.0-32.0); BLOOD UREA NITROGEN 19 MG/DL (7-18); CHLORIDE 108 MEQ/L (98-107); CREATINE KINASE 169 U/L (39-308); GLOMERULAR FILTRATION RATE 64 ML/MIN (>89); POTASSIUM 4.2 MEQ/L (3.5-5.1); SODIUM (NA) 142 MEQ/L (136-145)
[2016-07-20 02:51] LABS: CKMB 0.5 NG/ML (0.5-3.6)
--- NOTE | 2016-07-20 03:08 | PD ---
HPI Chief Complaint: Cardiac Complaint Time Seen by Provider: 00:40 Travel History International Travel<30 days: No Contact w/Intl Traveler<30days: No Traveled to known affect area: No History of Present Illness HPI This is a 71-year-old man who presents to the emergency department complaining of palpitations. Patient had a STEMI about a month ago, complicated by A. fib. He's had intermittent A. fib. Recently hospitalized for tachybradycardia syndrome with A. fib. There is concerned that he may need a pacemaker because his heart rate was too low when he was in sinus rhythm. He underwent ablation about 3 days ago. He was discharged doing well. Tonight he developed some palpitations and his heart rate was in the 130s so he came into the hospital via EMS. On arrival his heart rate was back in the 70s he was in sinus rhythm. Has no complaints now. History Past Medical History Narrative Medical History of prostate cancer GERD STEMI A. fib Symptomatic bradycardia Anxiety Tetanus Vaccination: < 5 Years Influenza Vaccination: Yes Social History Alcohol Use: Yes (occasionally) Tobacco Use: No Allergies-Medications (Allergen,Severity, Reaction): Coded Allergies: No Known Allergies (Unverified , 07/19/16) Reported Meds & Prescriptions Reported Meds & Active Scripts Active Metoprolol Tartrate 25 Mg Tab 25 Mg PO Q8HR 30 Days Pantoprazole (Pantoprazole Sodium) 40 Mg Tab 40 Mg PO DAILY Plavix (Clopidogrel Bisulfate) 75 Mg Tab 75 Mg PO DAILY Atorvastatin (Atorvastatin Calcium) 80 Mg Tab 80 Mg PO HS Aspirin EC (Aspirin) 81 Mg Tabdr 81 Mg PO DAILY Eliquis (Apixaban) 5 Mg Tab 5 Mg PO BID Xanax (Alprazolam) 0.25 Mg Tab 0.25 Mg PO Q6HR PRN Review of Systems Except as stated in HPI: all other systems reviewed are Neg Physical Exam Narrative GENERAL: 71-year-old man, no acute distress. NECK: Trachea midline. No JVD. CARDIOVASCULAR: Regular rate and rhythm. No murmur appreciated. RESPIRATORY: No accessory muscle use. Clear to auscultation. Breath sounds equal bilaterally. GASTROINTESTINAL: Abdomen soft, non-tender, nondistended. Hepatic and splenic margins not palpable. MUSCULOSKELETAL: No obvious deformities. No clubbing. No cyanosis. No edema. NEUROLOGICAL: Awake and alert. No obvious cranial nerve deficits. Motor grossly within normal limits. Normal speech. PSYCHIATRIC: Appropriate mood and affect; insight and judgment normal. Data Data Last Documented VS Vital Signs Date Time Temp Pulse Resp B/P Pulse Ox O2 Delivery O2 Flow Rate FiO2 07/20/16 00:45 69 16 109/78 96 Room Air 07/19/16 23:54 98.4 Orders Electrocardiogram (07/20/16 00:34) Complete Blood Count With Diff (07/20/16 00:34) Basic Metabolic Panel (Bmp) (07/20/16 00:34) Ckmb (Isoenzyme) Profile (07/20/16 00:34) Troponin I (07/20/16 00:34) Iv Access Insert/Monitor (07/20/16 00:34) Ecg Monitoring (07/20/16 00:34) Oxygen Administration (07/20/16 00:34) Oximetry (07/20/16 00:34) Act Partial Throm Time (Ptt) (07/20/16 00:34) Prothrombin Time / Inr (Pt) (07/20/16 00:34) CKMB (07/20/16 00:00) CKMB% (07/20/16 00:00) Labs Laboratory Tests Test 07/20/16 00:00 White Blood Count 7.1 TH/MM3 Red Blood Count 4.23 MIL/MM3 Hemoglobin 11.9 GM/DL Hematocrit 36.2 % Mean Corpuscular Volume 85.5 FL Mean Corpuscular Hemoglobin 28.2 PG Mean Corpuscular Hemoglobin 32.9 % Concent Red Cell Distribution Width 13.9 % Platelet Count 276 TH/MM3 Mean Platelet Volume 8.5 FL Neutrophils (%) (Auto) 61.4 % Lymphocytes (%) (Auto) 20.5 % Monocytes (%) (Auto) 9.9 % Eosinophils (%) (Auto) 6.8 % Basophils (%) (Auto) 1.4 % Neutrophils # (Auto) 4.3 TH/MM3 Lymphocytes # (Auto) 1.4 TH/MM3 Monocytes # (Auto) 0.7 TH/MM3 Eosinophils # (Auto) 0.5 TH/MM3 Basophils # (Auto) 0.1 TH/MM3 CBC Comment DIFF FINAL Differential Comment Prothrombin Time 11.2 SEC Prothromb Time International 1.0 RATIO Ratio Activated Partial 27.8 SEC Thromboplast Time Sodium Level 142 MEQ/L Potassium Level 4.2 MEQ/L Chloride Level 108 MEQ/L Carbon Dioxide Level 24.2 MEQ/L Anion Gap 10 MEQ/L Blood Urea Nitrogen 19 MG/DL Creatinine 1.13 MG/DL Estimat Glomerular Filtration 64 ML/MIN Rate Random Glucose 98 MG/DL Calcium Level 8.6 MG/DL Total Creatine Kinase 169 U/L Creatine Kinase MB 0.5 NG/ML Troponin I 0.13 NG/ML [facility] Medical Decision Making Medical Screen Exam Complete: Yes Emergency Medical Condition: Yes Interpretation(s) LABS: CBC remarkable for mild anemia. CMP unremarkable. Troponin 0.13 Coags unremarkable. Differential Diagnosis A. fib, palpitations, other Narrative Course Medical decision making This a 71-year-old man who presents to the emergency department with palpitations. He likely had an episode of A. fib. This resolved now. Lites are unremarkable. Recommend outpatient follow-up. Patient never had chest pain or trouble breathing. Troponin minimally elevated possibly related to increased heart rate. Outpatient follow-up. Patient was discharge her down time. He was explicitly told to return for any chest pain, trouble breathing, heart rate elevated more than 150, or any lightheadedness or syncope. Diagnosis Primary Impression: A-fib Patient Instructions: General Instructions Departure Forms: Tests/Procedures Disposition: DISCHARGE HOME Condition: Stable Igor Lema MD July 20, 2016 03:08
--- NOTE | 2016-07-20 10:37 | EKG ---
Date Performed: 07/20/2016 Time Performed: 00:03:02 PTAGE: 71 years EKG: Sinus rhythm LOW QRS VOLTAGE IN PRECORDIAL LEADS PATTERN CONSISTENT WITH PULMONARY DISEASE RIGHT BUNDLE BRANCH BL OCK LEFT ANTERIOR FASCICULAR BLOCK MODERATE T-WAVE ABNORMALITY, CONSIDER LATERAL ISCHEMIA ABNORMAL EC G PREVIOUS TRACING : 07/16/2016 05.04 DOCTOR: Kait Brown Interpretating Date/Time 07/20/2016 10:35:47
== END 2016-07-20 02:20 | disposition home or self-care (01) ==
LOC: NEPC 23:48
DX: I48.91 Unspecified atrial fibrillation (principal); I25.2 Old myocardial infarction; R94.31 Abnormal electrocardiogram [ECG] [EKG]
CPT/HCPCS: 80048; 82550; 82552; 84484; 85025; 85610; 85730; 93005